=== PATIENT | female | born 1955 | race Caucasian/White ===

== ENCOUNTER 2017-08-07 07:10 | Emergency (ER) | payer OTHER ==
[~2017-08-07] VITALS: Ht 162.6 cm; Wt 56.7 kg
[~2017-08-07 07:10] MED LIST: CELEXA40 MG PO; CYCLOBENZAPRINE10 MG PO; ERYTHROMYCIN3.5 GM OPTH; FLONASE SENSIM9.9 ML NAS; INDOMETHACIN50 MG PO; KEFLEX500 MG PO; KLONOPIN0.5 MG PO; KLONOPIN1 MG PO; LAMICTAL100 MG PO; PREDNISONE20 MG PO; ULTRAM50 MG PO; VISTARIL25 MG PO
== END 2017-08-07 09:32 | disposition home or self-care (01) ==
LOC: ED 07:10
DX: F41.9 Anxiety disorder, unspecified (principal); F32.9 Major depressive disorder, single episode, unspecified; Z87.891 Personal history of nicotine dependence; Z79.899 Other long term (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
CPT/HCPCS: 80053; 85025; 99283; G0480

== ENCOUNTER 2017-09-02 07:43 | Emergency (ER) | payer OTHER ==
[~2017-09-02] VITALS: Ht 162.6 cm; Wt 56.7 kg
[2017-09-02] MEDS ORDERED: ACYCLOVIR200 MG PO (07:53)
== END 2017-09-02 08:18 | disposition home or self-care (01) ==
LOC: ED 07:43
DX: R05 Cough (principal)

== ENCOUNTER 2018-09-15 20:24 | Emergency (ER) | payer OTHER ==
[~2018-09-15] VITALS: Ht 162.6 cm; Wt 56.7 kg
[~2018-09-15 20:24] MED LIST changes: +ACYCLOVIR200 MG PO
[2018-09-15] MEDS ORDERED: OMEPRAZOLE20 M1 (20:41)
[2018-09-15] MEDS ORDERED: TRAMADOL HCL50 MG PO (22:16)
== END 2018-09-15 22:30 | disposition home or self-care (01) ==
LOC: ED 20:24
DX: S86.102A Unspecified injury of other muscle(s) and tendon(s) of posterior muscle group at lower leg level, left leg, initial encounter (principal); F32.9 Major depressive disorder, single episode, unspecified; F41.9 Anxiety disorder, unspecified; F17.200 Nicotine dependence, unspecified, uncomplicated; Z79.899 Other long term (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; X58.XXXA Exposure to other specified factors, initial encounter
CPT/HCPCS: 73590; 80053; 85025; 85610; 85730; 99283-25

== ENCOUNTER 2019-02-14 12:00 | Emergency (ER) | payer OTHER ==
[~2019-02-14] VITALS: Ht 162.6 cm; Wt 52.2 kg
[~2019-02-14 12:00] MED LIST changes: +OMEPRAZOLE20 M1; +TRAMADOL HCL50 MG PO
[2019-02-14] MEDS ORDERED: CELEXA10 MG PO (12:08)
[2019-02-14] MEDS ORDERED: CYCLOBENZAPRINE10 MG PO (13:08)
== END 2019-02-14 14:25 | disposition home or self-care (01) ==
LOC: ED 12:00
DX: R25.2 Cramp and spasm (principal); F17.200 Nicotine dependence, unspecified, uncomplicated; F32.9 Major depressive disorder, single episode, unspecified; F41.9 Anxiety disorder, unspecified; Z79.899 Other long term (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
CPT/HCPCS: 80053; 83735; 85025; 96372; 99283-25; 99406; J1885

== ENCOUNTER 2019-04-11 09:07 | Emergency (ER) | payer OTHER ==
[~2019-04-11] VITALS: Ht 162.6 cm; Wt 52.2 kg
[~2019-04-11 09:07] MED LIST changes: +CELEXA10 MG PO
--- OUTSIDE RECORDS SUMMARY | 2019-04-11 09:10 | XMS ---
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 Date: 02/16/2019 Care Coordination: Mental health services are being provided by [employer].\T\nbsp; Please contact [facility] with mental health concerns.\T\nbsp; [place] \T\nbsp; [place]: [phone]. E.D. VISIT COUNT (12 MO.) 3 [facility] Hodgson TOTAL 3 NOTE: Visits indicate total known visits. ED/UCC VISIT TRACKING (12 MO.) 04/11/2019 09:08 [facility] [place] TYPE: Emergency COMPLAINT: - RIGHT LEG PAIN/NON INJURY 02/14/2019 12:00 [facility] [place] TYPE: Emergency COMPLAINT: - RIGHT LEG PAIN NON INJURY DIAGNOSES: - Cramp and spasm - Nicotine dependence, unspecified, uncomplicated - Muscle spasm of calf - Other residential (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 - Anxiety disorder, unspecified - Major depressive disorder, single episode, unspecified 09/15/2018 20:24 [facility] [place] TYPE: Emergency COMPLAINT: - L LEG SWELLING DIAGNOSES: - Unspecified injury of other muscle(s) and tendon(s) of posterior muscle group at lower leg level, left leg, initial encounter - Pain in left lower leg - Nicotine dependence, unspecified, uncomplicated - Anxiety disorder, unspecified - Other residential (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 - Exposure to other specified factors, initial encounter - Major depressive disorder, single episode, unspecified INPATIENT VISIT TRACKING (12 MO.) No inpatient visits to display in this time frame [email or web address]
[2019-04-11] MEDS ORDERED: GABAPENTIN300 MG PO (09:24)
[2019-04-11] MEDS ORDERED: BUSPIRONE HCL5 MG PO (09:25)
[2019-04-11] MEDS ORDERED: NAPROXEN250 MG PO (09:26)
== END 2019-04-11 10:20 | disposition home or self-care (01) ==
LOC: ED 09:07
DX: G89.29 Other chronic pain (principal); M54.5 Low back pain; M25.551 Pain in right hip; M79.651 Pain in right thigh; F32.9 Major depressive disorder, single episode, unspecified; F41.9 Anxiety disorder, unspecified; F17.200 Nicotine dependence, unspecified, uncomplicated; Z79.899 Other long term (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
CPT/HCPCS: 96372; 99283; 99406; J1100; J1885

== ENCOUNTER 2019-06-19 23:33 | Emergency (ER) | payer OTHER ==
[~2019-06-19] VITALS: Ht 162.6 cm; Wt 52.2 kg
[~2019-06-19 23:33] MED LIST changes: +BUSPIRONE HCL5 MG PO; +GABAPENTIN300 MG PO; +NAPROXEN250 MG PO
--- OUTSIDE RECORDS SUMMARY | 2019-06-19 23:36 | XMS ---
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 Guidelines - PDMP CARE PROVIDERS ROMIE LOERA MD Psychiatry \T\ Neurology: Psychiatry 04/12/2019-Current PHONE: Unknown [facility] Primary Care Current PRIMARY CARE CNTR PHONE: Unknown Guidelines [facility]: [facility] Guidelines Date: 02/16/2019 Care Coordination: Mental health services are being provided by [employer].\T\nbsp; Please contact [employer] with mental health concerns.\T\nbsp; Nancy/Hardy [place]: \T\nbsp; [place]: [phone]. E.D. VISIT COUNT (12 MO.) 4 ADALBERTO Hodgson TOTAL 4 NOTE: Visits indicate total known visits. ED/UCC VISIT TRACKING (12 MO.) 06/19/2019 23:33 [facility] [place] TYPE: Emergency COMPLAINT: - BACK PAIN 04/11/2019 09:08 [facility] [place] TYPE: Emergency COMPLAINT: - RIGHT LEG PAIN/NON INJURY DIAGNOSES: - Pain in right thigh - Anxiety disorder, unspecified - Nicotine dependence, unspecified, uncomplicated - Other optic fibre drawer (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 - Other chronic pain - Pain in right hip - Major depressive disorder, single episode, unspecified - Low back pain 02/14/2019 12:00 [facility] [place] TYPE: Emergency COMPLAINT: - RIGHT LEG PAIN NON INJURY DIAGNOSES: - Cramp and spasm - Nicotine dependence, unspecified, uncomplicated - Muscle spasm of calf - Other optic fibre drawer (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 - Anxiety disorder, unspecified - Major depressive disorder, single episode, unspecified 09/15/2018 20:24 [facility] [place] TYPE: Emergency COMPLAINT: - L LEG SWELLING DIAGNOSES: - Unsp inj musc/tend post grp at low leg level, left leg, init - Pain in left lower leg - Nicotine dependence, unspecified, uncomplicated - Anxiety disorder, unspecified - Other snf (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 - Exposure to other specified factors, initial encounter - Major depressive disorder, single episode, unspecified INPATIENT VISIT TRACKING (12 MO.) No inpatient visits to display in this time frame [email or web address]
[2019-06-19] MEDS ORDERED: BUPRENORPHINE HC2 MG SL (23:47)
[2019-06-20] MEDS ORDERED: CYCLOBENZAPRINE10 MG PO (01:38)
== END 2019-06-20 01:51 | disposition home or self-care (01) ==
LOC: ED 23:33
DX: M54.5 Low back pain (principal); F32.9 Major depressive disorder, single episode, unspecified; F17.200 Nicotine dependence, unspecified, uncomplicated; Z79.899 Other long term (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
CPT/HCPCS: 96372; 99283; J1885

== ENCOUNTER 2019-08-07 15:10 | Emergency (ER) | payer OTHER ==
[~2019-08-07] VITALS: Ht 162.6 cm; Wt 47.6 kg
--- OUTSIDE RECORDS SUMMARY | ~2019-08-07 | XMS | Encounter Summary ---
Demographics + + + | Address | [address] | | | [place] [address] | + + + | Home Phone | | + + + | Preferred Language | Unknown | + + + | Marital Status | Single | + + + | Congregational Affiliation | Unknown | + + + | Race | Unknown | + + + | Ethnic Group | Unknown | + + + Author + + + | Author | [facility] | | | and Swapnilana | + + + | Organization | [facility] | | | and Swapnilana | + + + | Address | Unknown | + + + | Phone | Unavailable | + + + Support + + + + + | Name | Relationship | Address | Phone | + + + + + | Octavio Archer | ECON | [place] | | | | | [address] | | + + + + + Care Team Providers + +------+ + | Care Lead Scientist Name | Role | Phone | + +------+ + | Adan Welch NP | PCP | | + +------+ + Reason for Visit +---------+ + | Reason | Comments | +---------+ + | No Show | | +---------+ + Encounter Details +--------+ + + + + | Date | Type | Department | Care Team | Description | +--------+ + + + + | 05/26/ | Telephone | [facility] | Manuel Vizcarra, | No Show | | 2019 | | PHYSIATRY [address] | PA-C [address] | | | | | [place], [address] [place] | | | | | [place] [address] | [place] [address] | | | | | [phone] | [phone] | | | | | | | | +--------+ + + + + Social History + + + +--------+------+ | Tobacco Use | Types | Packs/Day | Years | Date | | | | | Used | | + + + +--------+------+ | Current Every Day | E-Cigarettes | | | | | Smoker | | | | | + + + +--------+------+ + +---+---+---+ | Smokeless Tobacco: | | | | | Never Used | | | | + +---+---+---+ + + +---------+ + | Alcohol Use | Drinks/Week | oz/Week | Comments | + + +---------+ + | Not Currently | | | | + + +---------+ + + + + | Sex Assigned at | Date Recorded | | | | + + + | Not on file | | + + + + + + + | Job Start Date | Occupation | Industry | + + + + | Not on file | Not on file | Not on file | + + + + + + + + | Travel History | Travel Start | Travel End | + + + + + + | No recent travel history available. | + + documented as of this encounter Plan of Treatment +--------+---------+ + + + | Date | Type | Specialty | Care Team | Description | +--------+---------+ + + + | 08/08/ | Office | Neurosurgery | Jaime Jerez | | | 2019 | Visit | | MD Mamta [address] | | | | | | [address] | | | | | | [place] [address] | | | | | | [phone] | | | | | | | | +--------+---------+ + + + | 12/06/ | Office | Neurology | Kashmir Matthew MD | | | 2019 | Visit | | [address] | | | | | | [place] | | | | | | [phone] | | | | | | | | +--------+---------+ + + + documented as of this encounter Visit Diagnoses Not on filedocumented in this encounter"
--- OUTSIDE RECORDS SUMMARY | ~2019-08-07 | XMS | Encounter Summary ---
Demographics + + + | Address | [address] | | | [place] [address] | + + + | Home Phone | | + + + | Preferred Language | Unknown | + + + | Marital Status | Single | + + + | Rastafarian Affiliation | Unknown | + + + | Race | White | + + + | Ethnic Group | Other Race | + + + Author + + + | Author | [facility] | + + + | Organization | [facility] | + + + | Address | Unknown | + + + | Phone | Unavailable | + + + Care Team Providers + +------+ + | Care Blade Filer Name | Role | Phone | + +------+ + | Adan Welch NP | PCP | | + +------+ + Encounter Details +--------+ + + + + | Date | Type | Department | Care Team | Description | +--------+ + + + + | 01/06/ | Document-Sc | Dermatology at | [facility] | | | 2017 | anned | Jerri Smith | MD Naay | | | | | Clinic [address] | | | | | | [address] [place] | | | | | | [address] | | | | | | [phone] | | | +--------+ + + + + Social History + +-------+ +--------+------+ | Tobacco Use | Types | Packs/Day | Years | Date | | | | | Used | | + +-------+ +--------+------+ | Never Assessed | | | | | + +-------+ +--------+------+ + + + | Sex Assigned at [...] as of this encounter Plan of Treatment Not on filedocumented as of this encounter Visit Diagnoses Not on filedocumented in this encounter"
--- OUTSIDE RECORDS SUMMARY | ~2019-08-07 | XMS | Encounter Summary ---
Demographics + + + | Address | [address] | | | [place] [address] | + + + | Home Phone | | + + + | Preferred Language | Unknown | + + + | Marital Status | Single | + + + | Methodist Affiliation | Unknown | + + + | Race | Unknown | + + + | Ethnic Group | Unknown | + + + Author + + + | Author | [facility] | | | and Swapnilana | + + + | Organization | [facility] | | | and Swapnilana | + + + | Address | Unknown | + + + | Phone | Unavailable | + + + Support + + + + + | Name | Relationship | Address | Phone | + + + + + | Octavio Archer | ECON | [place] | | | | | [address] | | + + + + + Care Team Providers + +------+ + | Care Conduit Worker Name | Role | Phone | + +------+ + PCP | Unavailable | + +------+ + Encounter Details +--------+ + + + + | Date | Type | Department | Care Team | Description | +--------+ + + + + | 05/18/ | Hospital | [facility] | Conversion | | | 1996 | Encounter | SYSTEM RADIOLOGY | Transaction, | | | | | CONVERSION [address] | Provider Unknown | | | | | [address] [place], [place] | | | | | | [phone] | (Fax) | | | | | | | [...] | | | | | [address] [place] | | | | | | [place] [address] | | | | | | [phone] | | | | | | | | +--------+---------+ + + + | 12/06/ | Office | Neurology | Kashmir Matthew MD | | | 2020 | Visit | | [address] | | | | | | [place] | | | | | | [address] | | | | | | | | +--------+---------+ + + + documented as of this encounter Visit Diagnoses Not on filedocumented in this encounter"
--- OUTSIDE RECORDS SUMMARY | ~2019-08-07 | XMS | Clinical Summary ---
Demographics + + + | Address | [address] | | | [place] [address] | + + + | Home Phone | | + + + | Preferred Language | Unknown | + + + | Marital Status | Single | + + + | Christian Affiliation | Unknown | + + + | Race | Unknown | + + + | Ethnic Group | Unknown | + + + Author + + + | Author | [facility] | | | and Swapnilana | + + + | Organization | [facility] | | | and Swapnilana | + + + | Address | Unknown | + + + | Phone | Unavailable | + + + Support + + + + + | Name | Relationship | Address | Phone | + + + + + | Octavio Archer | ECON | [place] | | | | | [address] | | + + + + + Care Team Providers + +------+ + | Care Cooling Room Attendant Name | Role | Phone | + +------+ + | Divya Eubanks | PCP | | + +------+ + Allergies No Known Allergies Medications + + + +---------+------+------+-------+ | Medication | Sig | Dispensed | Refills | Star | End | Statu | | | | | | t | Date | s | | | | | | Date | | | + + + +---------+------+------+-------+ | omeprazole | Take 20 mg by mouth | | 0 | 06/1 | | Activ | | (PRILOSEC) 20 mg | Daily. | | | 3/20 | | e | | TBEC | | | | 11 | | | + + + +---------+------+------+-------+ | acyclovir | Take 2 capsules by | | 0 | 06/1 | | Activ | | (ZOVIRAX) 200 mg | mouth tid for | | | 3/20 | | e | | capsule | flareups of herpes | | | 11 | | | + + + +---------+------+------+-------+ | lamoTRIgine | Take 600 mg by mouth | | 0 | 06/1 | | Activ | | (LAMICTAL) 150 MG | nightly. | | | 3/20 | | e | | tablet | | | | 11 | | | + + + +---------+------+------+-------+ | fluticasone | 1 spray by Nasal | | 0 | | | Activ | | (FLONASE) 50 | route Daily. | | | | | e | | mcg/nasal spray | | | | | | | + + + +---------+------+------+-------+ | citalopram | Take 40 mg by mouth | | 0 | | | Activ | | (CELEXA) 40 mg | Daily. | | | | | e | | tablet | | | | | | | + + + +---------+------+------+-------+ | cyclobenzaprine | Take 10 mg by mouth | | 0 | | | Activ | | (FLEXERIL) 10 mg | Twice daily as | | | | | e | | tablet | needed for Muscle | | | | | | | | spasms. | | | | | | + + + +---------+------+------+-------+ | gabapentin | Take 300 mg by mouth | | 0 | | | Activ | | (NEURONTIN) 300 mg | 3 times daily. | | | | | e | | capsule | | | | | | | + + + +---------+------+------+-------+ | buprenorphine | Place 8 mg under the | | 3 | 11/1 | | Activ | | (SUBUTEX) 8 mg SUBL | tongue Daily. | | | 3/20 | | e | | | | | | 19 | | | + + + +---------+------+------+-------+ | naproxen | Take 250 mg by mouth | | 0 | | | Activ | | (NAPROSYN) 250 mg | 2 times daily. | | | | | e | | tablet | | | | | | | + + + +---------+------+------+-------+ | methylPREDNISolone | Take 4 mg by mouth | | 0 | | | Activ | | (MEDROLRITO,) 4 mg | (see instruction). | | | | | e | | tablet | Follow package | | | | | | | | directions. | | | | | | + + + +---------+------+------+-------+ Active Problems + + + | Problem | Noted Date | + + + | Alcohol abuse, in remission | 03/03/2011 | + + + Encounters +--------+ + + + + | Date | Type | Specialty | Care Team | Description | +--------+ + + + + | 08/05/ | Imaging | Radiology | Provider, | | | 2018 | Exam | | MD Emilio | | +--------+ + + + + | 08/05/ | Abstract | Neurosurgery | Jaime Jerez | | | 2018 | | | MD Mamta | | +--------+ + + + + | 07/06/ | Telephone | Physical Medicine | Luis M Back, | Results | | 2018 | | and Rehabilitation | | | +--------+ + + + + | 05/26/ | Telephone | Physical Medicine | Manuel Vizcarra, | No Show | | 2019 | | and Rehabilitation | PA-C | | +--------+ + + + + from Last 3 Months Immunizations + + + + | Name | Administration Dates | Next Due | + + + + | INFLUENZA TRIV | 06/15/2001 | | | W/PRES(PED/ADOL/ADUL | | | | T),MULTIDOSE | | | + + + + | MMR, 2 DOSE | 08/04/1994 | | | (PED/ADULT) | | | + + + + | TDAP, (ADOL/ADULT) | 06/27/2016 | | + + + + Family History + + + + + | Medical History | Relation | Name | Comments | + + + + + | Alcohol abuse | Father | | | + + + + + | Cancer | Father | | | + + + + + | Drug abuse | Father | | | + + + + + | No known problems | Maternal | | | | | Grandfath | | | | | er | | | + + + + + | No known problems | Maternal | | | | | Grandmoth | | | | | er | | | + + + + + | Alcohol abuse | Mother | Radha | | | | | | | | | | Lissy | | | | | l | | + + + + + | COPD | Mother | Radha | | | | | | | | | | Lissy | | | | | l | | + + + + + | Drug abuse | Mother | Radha | | | | | | | | | | Lissy | | | | | l | | + + + + + | Mental illness | Mother | Radha | | | | | | | | | | Lissy | | | | | l | | + + + + + | No known problems | Paternal | | | | | Grandfath | | | | | er | | | + + + + + | No known problems | Paternal | | | | | Grandmoth | | | | | er | | | + + + + + | Alcohol abuse | Sister | | | + + + + + | Drug abuse | Sister | | | + + + + + + + + + + | Relation | Name | Status | Comments | + + + + + | Father | | | | + + + + + | Maternal Grandfather | | | | + + + + + | Maternal Grandmother | | | | + + + + + | Mother | Radha | | | | | [place] | | | + + + + + | Paternal Grandfather | | | | + + + + + | Paternal Grandmother | | | | + + + + + | Sister | | | | + + + + + Social History + [...] | | | + +---+---+---+ + + | Tobacco Cessation: Ready to Quit: No; Counseling Given: Yes | + + + + +---------+ + | Alcohol Use | Drinks/Week | oz/Week | Comments | + + +---------+ + | Yes | | | Ocassionally | + + +---------+ + + + [...] recent travel history available. | + + Last Filed Vital Signs + + + + + | Vital Sign | Reading | Time Taken | Comments | + + + + + | Blood Pressure | 134/70 | 02/24/2019 9:07 AM | | | | | PDT | | + + + + + | Pulse | 73 | 02/24/2019 9:07 AM | | | | | PDT | | + + + + + | Temperature | - | - | | + + + + + | Respiratory Rate | 18 | 02/24/2019 9:07 AM | | | | | PDT | | + + + + + | Oxygen Saturation | - | - | | + + + + + | Inhaled Oxygen | - | - | | | Concentration | | | | + + + + + | Weight | 49.9 kg (110 lb) | 02/24/2019 9:07 AM | | | | | PDT | | + + + + + | Height | 162.6 cm (5' 4") | 02/24/2019 9:07 AM | | | | | PDT | | + + + + + | Body Mass Index | 18.88 | 02/24/2019 9:07 AM | | | | | PDT | | + + + + + Plan of Treatment +--------+---------+ + + + | Date | Type | Specialty | Care Team | Description | +--------+---------+ + + + | 08/08/ | Office | Neurosurgery | Jaime Jerez | | | 2018 | Visit | | MD Mamta [address] | | | | | | [address] [place] | | | | | | [place] [address] | | | | | | [phone] | | | | | | | | +--------+---------+ + + + | 12/06/ | Office | Neurology | Kashmir Matthew MD | | | 2019 | Visit | | [address] | | | | | | [place] | | | | | | [address] | | | | | | | | +--------+---------+ + + + + + + + + | Health Maintenance | Due Date | Last Done | Comments | + + + + + | Hepatitis C | | | | | Screening | 7 | | | + + + + + | Vaccine: | | | | | Pneumococcal 19-64 | 3 | | | | (1 of 1 - PPSV23) | | | | + + + + + | Cervical Cancer | | | | | Screening (Pap) | 7 | | | + + + + + | Colorectal Cancer | | | | | Screening | 7 | | | | (Colonoscopy) | | | | + + + + + | Vaccine: Zoster (1 | | | | | of 2) | 7 | | | + + + + + | Breast Cancer | | | | | Screening | 2 | | | + + + + + | Vaccine: Influenza | | 06/15/2001 | | | (#1) | 9 | | | + + + + + | Vaccine: | | 06/27/2016 | | | Dtap/Tdap/Td (2 - | 6 | | | | Td) | | | | + + + + + Procedures + +--------+ + + + | Procedure Name | Priori | Date/Time | Associated Diagnosis | Comments | | | ty | | | | + +--------+ + + + | MRI LUMBAR SPINE WO | Routin | 08/01/2019 | | Results for this | | CONTRAST | e | 12:00 AM | | procedure are in the | | | | PST | | results section. | + +--------+ + + + from Last 3 Months Results MRI Lumbar Spine wo Contrast (08/01/2019 12:00 AM PST) + + | Specimen | + + | | + + + + + | Narrative | Performed At | + + + | External films for comparison only | [facility] | | | | | No results will be in the chart. | | + + + + +---------+ + + | Performing | Address | City/State/Zipcode | Phone Number | | Organization | | | | + +---------+ + + | [facility] | | | | + +---------+ + + from Last 3 Months Insurance + +--------+ +--------+ +---------+--------+ | Payer | Benefi | Subscriber | Effect | Phone | Address | Type | | | t Plan | ID | osmel | | | | | | / | | Dates | | | | | | Group | | | | | | + +--------+ +--------+ +---------+--------+ | [employer] | [employer] | [id number] | | [id number] | | Medica | | MEDICAID HMO | HEALTH | | [phone] | 1 | | id | | | MDCD | | esent | | | | | | [place]MO [place] | | | | | | + +--------+ +--------+ +---------+--------+ + +--------+ +--------+ + + | Guarantor Name | Accoun | Relation to | Date | Phone | Billing Address | | | t Type | Patient | of | | | | | | | | | | + +--------+ +--------+ + + | Josey Segundo | Person | Self [birth year] | [address] | | | al/Fam | | 1955 | [phone] | [place] [id number] | | | bakari | | | [address] (Home) | | + +--------+ +--------+ + + Advance Directives + + + + + | Type | Date Recorded | Patient | Explanation | | | | 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
--- OUTSIDE RECORDS SUMMARY | ~2019-08-07 | XMS | Encounter Summary ---
Demographics + + + | Address | [address] | | | [place] [address] | + + + | Home Phone | | + + + | Preferred Language | Unknown | + + + | Marital Status | Single | + + + | Hoahaoism Affiliation | Unknown | + + + | Race | Unknown | + + + | Ethnic Group | Unknown | + + + Author + + + | Author | [facility] | | | and Swapnilana | + + + | Organization | [facility] | | | and Swapnilana | + + + | Address | Unknown | + + + | Phone | Unavailable | + + + Support + + + + + | Name | Relationship | Address | Phone | + + + + + | Octavio Archer | ECON | [place] | | | | | [address] | | + + + + + Care Team Providers + +------+ + | Care Graphite Pan Drier Tender Name | Role | Phone | + [...] | pain | [address] | | | | | Procedures | [address] | [address] [place] | | | | | MRI Hip | [place], | [place], [place] | | | | | Right | [place] [address] | [address] | | | | | Arthrogram w | Phone: | Phone: | | | | | Contrast | [phone] | [phone] | | | | | | Fax: | Fax: | | | | | | [phone] | [phone] | +--------+--------+ + + + + Reason for Visit Diagnostic/Screening (Routine) +--------+--------+ + + + + [...] | pain | [address] | | | | | Procedures | [address] | [address] [place] | | | | | MRI Hip | [place], | [place], [place] | | | | | Right | [place] [address] | [address] | | | | | Arthrogram w | Phone: | Phone: | | | | | Contrast | [phone] | | | | | | | Fax: | Fax: | | | | | | [phone] | [phone] | +--------+--------+ + + + + Encounter Details +--------+ + + + + | Date | Type | Department | Care Team | Description | +--------+ + + + + | 03/23/ | Hospital | [facility] | Luis M Back, | Right hip pain | | 2019 | Encounter | MED CTR MRI [address] | MD [address] | | | | | [place], | [place], [place] | | | | | [place] [address] | [address] | | | | | [phone] | | | +--------+ + + + [...] + + documented as of this encounter Medications at Time of Discharge + + + +---------+ + + | Medication | Sig | Dispensed | Refills | Start | End Date | | | | | | Date | | + + + +---------+ + + | acyclovir | Take 2 capsules by | | 0 | 01/28/20 | | | (ZOVIRAX) 200 mg | mouth tid for | | | 11 | | | capsule | flareups of herpes | | | | | + + + +---------+ + + | citalopram | Take 40 mg by mouth | | 0 | | | | (CELEXA) 40 mg | Daily. | | | | | | tablet | | | | | | + + + +---------+ + + | cyclobenzaprine | Take 10 mg by mouth | | 0 | | | | (FLEXERIL) 10 mg | Twice daily as | | | | | | tablet | needed for Muscle | | | | | | | spasms. | | | | | + + + +---------+ + + | fluticasone | 1 spray by Nasal | | 0 | | | | (FLONASE) 50 | route Daily. | | | | | | mcg/nasal spray | | | | | | + + + +---------+ + + | gabapentin | Take 300 mg by mouth | | 0 | | | | (NEURONTIN) 300 mg | 3 times daily. | | | | | | capsule | | | | | | + + + +---------+ + + | lamoTRIgine | Take 600 mg by mouth | | 0 | 01/28/20 | | | (LAMICTAL) 150 MG | nightly. | | | 11 | | | tablet | | | | | | + + + +---------+ + + | omeprazole | Take 20 mg by mouth | | 0 | 01/28/20 | | | (PRILOSEC) 20 mg | Daily. | | | 11 | | | TBEC | | | | | | + + + +---------+ + + documented as of this encounter Plan of Treatment +--------+---------+ + + + | Date | Type | Specialty | Care Team | Description | +--------+---------+ + + + | 08/08/ | Office | Neurosurgery | Jaime Jerez | | | 2018 | Visit | | MD Mamta [address] | | | | | | [address] | | | | | | [place] [address] | | | | | | [phone] | | | | | | | | +--------+---------+ + + + | 12/06/ | Office | Neurology | Kashmir Matthew MD | | | 2019 | Visit | | [address], [place] | | | | | | [place] | | | | | | [address] | | | | | | | | +--------+---------+ + + + documented as of this encounter Procedures + +--------+ + + + | Procedure Name | Priori | Date/Time | Associated Diagnosis | Comments | | | ty | | | | + +--------+ + + + | MRI HIP RIGHT | Routin | 03/23/2019 | Right hip pain | Results for this | | ARTHROGRAM W | e | 9:01 AM | | procedure are in the | | CONTRAST | | PDT | | results section. | + +--------+ + + + documented in this encounter Results MRI Hip Right Arthrogram [...] | + + | Right hip pain Pain in joint, pelvic region and thigh | + + documented in this encounter"
--- OUTSIDE RECORDS SUMMARY | ~2019-08-07 | XMS | Encounter Summary ---
Demographics + + + | Address | [address] | | | [place] [address] | + + + | Home Phone | | + + + | Preferred Language | Unknown | + + + | Marital Status | Single | + + + | Sabianist Affiliation | Unknown | + + + | Race | Unknown | + + + | Ethnic Group | Unknown | + + + Author + + + | Author | [facility] | | | and Swapnilana | + + + | Organization | [facility] | | | and Swapnilana | + + + | Address | Unknown | + + + | Phone | Unavailable | + + + Support + + + + + | Name | Relationship | Address | Phone | + + + + + | Octavio Archer | ECON | [place] | | | | | [address] | | + + + + + Care Team Providers + +------+ + | Care Rubber Down Name | Role | Phone | + +------+ + | Divya Eubanks | PCP | | + +------+ + Encounter Details +--------+ + + + + | Date | Type | Department | Care Team | Description | +--------+ + + + + | 08/05/ | Abstract | [facility] [place] | Jaime Jerez | | | 2019 | | NEUROSURGERY [address] | MD [address] | | | | | [address] | [address] | | | | | [place] | [place] [address] | | | | | [address] | [phone] | | | | | [phone] | | | +--------+ + + + [...] [address] | | | | | | [place] [address] | | | | | | [phone] | | | | | | | | +--------+---------+ + + + | 12/06/ | Office | Neurology | Kashmir Matthew MD | | | 2019 | Visit | | [address] | | | | | | [place] | | | | | | [address] | | | | | | | | +--------+---------+ + + + documented as of this encounter Visit Diagnoses Not on filedocumented in this encounter"
--- OUTSIDE RECORDS SUMMARY | ~2019-08-07 | XMS | Encounter Summary ---
Demographics + + + | Address | [address] | | | [place] [address] | + + + | Home Phone | | + + + | Preferred Language | Unknown | + + + | Marital Status | Single | + + + | Advent Affiliation | Unknown | + + + | Race | White | + + + | Ethnic Group | Other Race | + + + Author + + + | Author | [facility] | + + + | Organization | [facility] | + + + | Address | Unknown | + + + | Phone | Unavailable | + + + Care Team Providers + +------+ + | Care Media Marketing Manager Name | Role | Phone | + +------+ + | Adan Welch NP | PCP | | + +------+ + Reason for Visit + + + | Reason | Comments | + + + | Letter Encounter To | | | Patient | | + + + Encounter Details +--------+ + + + + | Date | Type | Department | Care Team | Description | +--------+ + + + + | 02/03/ | Telephone | Dermatology at | [facility] | Letter Encounter To | | 2016 | | Jerri Smith | MD Naya | Patient | | | | Clinic [address] | | | | | St [place] | | | | | | [address] | | | | | | [phone] | | | +--------+ + + + [...]
--- OUTSIDE RECORDS SUMMARY | ~2019-08-07 | XMS | Encounter Summary ---
Demographics + + + | Address | [address] | | | [place] [address] | + + + | Home Phone | | + + + | Preferred Language | Unknown | + + + | Marital Status | Single | + + + | Adventist Affiliation | Unknown | + + + | Race | Unknown | + + + | Ethnic Group | Unknown | + + + Author + + + | Author | [facility] | | | and Swapnilana | + + + | Organization | [facility] | | | and Swapnilana | + + + | Address | Unknown | + + + | Phone | Unavailable | + + + Support + + + + + | Name | Relationship | Address | Phone | + + + + + | Octavio Archer | ECON | [place] | | | | | [address] | | + + + + + Care Team Providers + +------+ + | Care Binder And Box Builder Name | Role | Phone | + +------+ + PCP | Unavailable | + +------+ + Encounter Details +--------+ + + + + | Date | Type | Department | Care Team | Description | +--------+ + + + + | 07/18/ | Hospital | [facility] | Minh Grossman P, | | | 2006 | Encounter | SYSTEM EMR | DO [address] | | | | | CONVERSION [address] | [place] [address] | | | | | [address] [place], [place] | [phone] | | | | | [address] | | | | | | [phone] | | | +--------+ + + + [...] | | | | | [place] [address] | | | | | | [phone] | | | | | | | | +--------+---------+ + + + | 12/06/ | Office | Neurology | Kashmir Matthew MD | | | 2020 | Visit | | [address] | | | | | | [place] | | | | | | [address] | | | | | | | | +--------+---------+ + + + documented as of this encounter Visit Diagnoses Not on filedocumented in this encounter"
--- OUTSIDE RECORDS SUMMARY | ~2019-08-07 | XMS | Encounter Summary ---
Demographics + + + | Address | [address] | | | [place] [address] | + + + | Home Phone | | + + + | Preferred Language | Unknown | + + + | Marital Status | Single | + + + | Gnosticism Affiliation | Unknown | + + + | Race | Unknown | + + + | Ethnic Group | Unknown | + + + Author + + + | Author | [facility] | | | and Swapnilana | + + + | Organization | [facility] | | | and Swapnilana | + + + | Address | Unknown | + + + | Phone | Unavailable | + + + Support + + + + + | Name | Relationship | Address | Phone | + + + + + | Octavio Archer | ECON | [place] | | | | | [address] | | + + + + + Care Team Providers + +------+ + | Care Evp Chief Exploration Officer Name | Role | Phone | + +------+ + | Divya Eubanks | PCP | | + +------+ + Encounter Details +--------+ + + + + | Date | Type | Department | Care Team | Description | +--------+ + + + + | 08/05/ | Imaging | [facility] | Provider, | | | 2019 | Exam | MED CTR EXTERNAL | MD [address] | | | | | IMAGING | [place] | | | | | [phone] | [place] [address] | | +--------+ + + + + [...] | | | | [address] [facility] | | | | | | [place] [address] | | | | | | [phone] | | | | | | | | +--------+---------+ + + + | 12/06/ | Office | Neurology | Kashmir Matthew MD | | | 2019 | Visit | | [address] | | | | | | [place] | | | | | | [address] | | | | | | | [...] + documented in this encounter Results MRI Lumbar Spine wo Contrast (08/01/2019 [...] + documented in this encounter Visit Diagnoses Not on filedocumented in this encounter"
--- OUTSIDE RECORDS SUMMARY | ~2019-08-07 | XMS | Encounter Summary ---
Demographics + + + | Address | [address] | | | [place] [address] | + + + | Home Phone | | + + + | Preferred Language | Unknown | + + + | Marital Status | Single | + + + | Cheondoism Affiliation | Unknown | + + + | Race | Unknown | + + + | Ethnic Group | Unknown | + + + Author + + + | Author | [facility] | | | and Swapnilana | + + + | Organization | [facility] | | | and Swapnilana | + + + | Address | Unknown | + + + | Phone | Unavailable | + + + Support + + + + + | Name | Relationship | Address | Phone | + + + + + | Octavio Archer | ECON | [place] | | | | | [address] | | + + + + + Care Team Providers + +------+ + | Care Cylinder Handler Name | Role | Phone | + +------+ + PCP | Unavailable | + +------+ + Encounter Details +--------+ + + + + | Date | Type | Department | Care Team | Description | +--------+ + + + + | 05/18/ | Hospital | [facility] | Conversion | | | 1996 | Encounter | SYSTEM RADIOLOGY | Transaction, | | | | | CONVERSION [address] | Provider Unknown | | | | | [address] [place], [place] | | | | | | [address] | (Fax) | | | | | [...] | | | | | [place] [address] | | | | | | [phone] | | | | | | | [...]
--- OUTSIDE RECORDS SUMMARY | ~2019-08-07 | XMS | Encounter Summary ---
Demographics + + + | Address | [address] | | | [place] [address] | + + + | Home Phone [...] + + | Author | [facility] | | | and Swapnilana | + + + | Organization | [facility] | | | and Swapnilana | + + + | Address | Unknown | + + + | Phone | Unavailable | + + + Support + + + + + | Name | Relationship | Address | Phone | + + + + + | Octavio Archer | ECON | [place] | | | | | [address] | | + + + + + Care Team Providers + +------+ + | Care Mechanical Press Operator Name | Role | Phone | + +------+ + | Adan Welch NP | PCP | | + +------+ + Encounter Details +--------+ + + + + | Date | Type | Department | Care Team | Description | +--------+ + + + + | 11/10/ | Imaging | [facility] | Provider, | | | 2019 | Exam | MED CTR EXTERNAL | [address] | | | | | IMAGING | [address] | | | | | [phone] | [place] [address] | | +--------+ + + + + [...] | | | | | [address] | | | | | | [place] [address] | | | | | | [phone] | | | | | | | | +--------+---------+ + + + | 12/06/ | Office | Neurology | Kashmir Matthew MD | | | 2019 | Visit | | [address] | | | | | | [place] | | | | | | [address] | | | | | | | | +--------+---------+ + + + documented as of this encounter Procedures + +--------+ + + + | Procedure Name | Priori | Date/Time | Associated Diagnosis | Comments | | | ty | | | | + +--------+ + + + | XR LUMBAR SPINE 4 + | Routin | 10/04/2018 | | Results for this | | VW | e | 1:20 PM | | procedure are in the | | | | PST | | results section. | + +--------+ + + + documented in this encounter Results XR Lumbar Spine 4 + Vw (10/04/2018 1:20 PM PST) + + | Specimen | + [...]
--- OUTSIDE RECORDS SUMMARY | ~2019-08-07 | XMS | Encounter Summary ---
Demographics + + + | Address | [address] | | | [place] [address] | + + + | Home Phone | | + + + | Preferred Language | Unknown | + + + | Marital Status | Single | + + + | Church Affiliation | Unknown | + + + | Race | Unknown | + + + | Ethnic Group | Unknown | + + + Author + + + | Author | [facility] | | | and Swapnilana | + + + | Organization | [facility] | | | and Swapnilana | + + + | Address | Unknown | + + + | Phone | Unavailable | + + + Support + + + + + | Name | Relationship | Address | Phone | + + + + + | Octavio Archer | ECON | [place] | | | | | [address] | | + + + + + Care Team Providers + +------+ + | Care Spare Fixer Name | Role | Phone | + +------+ + PCP | Unavailable | + +------+ + Encounter Details +--------+ + + + + | Date | Type | Department | Care Team | Description | +--------+ + + + + | 07/16/ | Hospital | [facility] | Minh Grossman P, | | | 2006 | Encounter | SYSTEM EMR | DO [address] | | | | | CONVERSION [address] | [place] [address] | | | | | [address] [place], [place] | [phone] | | | | | [address] | | | | | | [phone] | | | +--------+ + + + [...] | | | | | [place] [address] | | | | | | [phone] | | | | | | | | +--------+---------+ + + + | 12/06/ | Office | Neurology | Kashmir Matthew MD | | | 2020 | Visit | | [address] | | | | | | [place] | | | | | | [address] | | | | | | | | +--------+---------+ + + + documented as of this encounter Visit Diagnoses Not on filedocumented in this encounter"
--- OUTSIDE RECORDS SUMMARY | ~2019-08-07 | XMS | Encounter Summary ---
Demographics + + + | Address | [address] | | | [place] [address] | + + + | Home Phone | | + + + | Preferred Language | Unknown | + + + | Marital Status | Single | + + + | Taoism Affiliation | Unknown | + + + | Race | Unknown | + + + | Ethnic Group | Unknown | + + + Author + + + | Author | [facility] | | | and Swapnilana | + + + | Organization | [facility] | | | and Swapnilana | + + + | Address | Unknown | + + + | Phone | Unavailable | + + + Support + + + + + | Name | Relationship | Address | Phone | + + + + + | Octavio Archer | ECON | [place] | | | | | [address] | | + + + + + Care Team Providers + +------+ + | Care Brilliandeer Lopper Name | Role | Phone | + +------+ + | Adan Welch NP | PCP | | + +------+ + Reason for Visit +--------+ + | Reason | Comments | +--------+ + | Letter | | +--------+ + Encounter Details +--------+ + + + + | Date | Type | Department | Care Team | Description | +--------+ + + + + | 05/02/ | Telephone | [facility] [place] | Luis M Back, | Letter | | 2019 | | PHYSIATRY [address] | MD [address] | | | | | [place], | [place], [place] | | | | | [place] [address] | [address] | | | | | [phone] | | | +--------+ + + + [...] | | | | | [place] [address] | | | | | | [phone] | | | | | | | [...]
--- OUTSIDE RECORDS SUMMARY | ~2019-08-07 | XMS | Encounter Summary ---
Demographics + + + | Address | [address] | | | [place] [address] | + + + | Home Phone | | + + + | Preferred Language | Unknown | + + + | Marital Status | Single | + + + | Advent Affiliation | Unknown | + + + | Race | Unknown | + + + | Ethnic Group | Unknown | + + + Author + + + | Author | [facility] | | | and Swapnilana | + + + | Organization | [facility] | | | and Swapnilana | + + + | Address | Unknown | + + + | Phone | Unavailable | + + + Support + + + + + | Name | Relationship | Address | Phone | + + + + + | Octavio Archer | ECON | [place] | | | | | [address] | | + + + + + Care Team Providers + +------+ + | Care Heeler Name | Role | Phone | + +------+ + PCP | Unavailable | + +------+ + Encounter Details +--------+ + + + + | Date | Type | Department | Care Team | Description | +--------+ + + + + | 08/28/ | Hospital | [facility] | Minh Coronel MD | | | 1997 - | Encounter | SYSTEM GENERIC IP | | | | | | CONVERSION [place] | | | | 09/01/ | | [address] [place], [place] | | | | 1997 | | [address] | | | | | | [phone] | | | +--------+ + + + [...] | 2019 | Visit | | MD [address] | | | | | | [address] [place] | | | | | | [place] [address] | | | | | | [phone] | | | | | | | | +--------+---------+ + + + | 12/06/ | Office | Neurology | Kashmir Matthew MD | | | 2020 | Visit | | [address] | | | | | | [place] | | | | | | [id number] | | | | | | | | +--------+---------+ + + + documented as of this encounter Visit Diagnoses Not on filedocumented in this encounter"
--- OUTSIDE RECORDS SUMMARY | ~2019-08-07 | XMS | Encounter Summary ---
Demographics + + + | Address | [address] | | | [place] [address] | + + + | Home Phone | | + + + | Preferred Language | Unknown | + + + | Marital Status | Single | + + + | Scientology Affiliation | Unknown | + + + | Race | Unknown | + + + | Ethnic Group | Unknown | + + + Author + + + | Author | [facility] | | | and Swapnilana | + + + | Organization | [facility] | | | and Swapnilana | + + + | Address | Unknown | + + + | Phone | Unavailable | + + + Support + + + + + | Name | Relationship | Address | Phone | + + + + + | Octavio Archer | ECON | [place] | | | | | [address] | | + + + + + Care Team Providers + +------+ + | Care Glass Mould Cleaner Name | Role | Phone | + +------+ + PCP | Unavailable | + +------+ + Encounter Details +--------+ + + + + | Date | Type | Department | Care Team | Description | +--------+ + + + + | 07/18/ | Hospital | [facility] | Minh Grossman P, | | | 2006 | Encounter | SYSTEM EMR | DO [address] | | | | | CONVERSION [address] | [place] [address] | | | | | [address] [place], [place] | [phone] | | | | | [address] | | | | | | [phone] | | | +--------+ + + + [...] | | | | | [place] [address] | | | | | | [phone] | | | | | | | | +--------+---------+ + + + | 12/06/ | Office | Neurology | Kashmir Matthew MD | | | 2020 | Visit | | [address] | | | | | | [place] | | | | | | [address] | | | | | | | | +--------+---------+ + + + documented as of this encounter Visit Diagnoses Not on filedocumented in this encounter"
--- OUTSIDE RECORDS SUMMARY | ~2019-08-07 | XMS | Encounter Summary ---
Demographics + + + | Address | [address] | | | [place] [address] | + + + | Home Phone | | + + + | Preferred Language | Unknown | + + + | Marital Status | Single | + + + | Rastafari Affiliation | Unknown | + + + | Race | Unknown | + + + | Ethnic Group | Unknown | + + + Author + + + | Author | [facility] | | | and Swapnilana | + + + | Organization | [facility] | | | and Swapnilana | + + + | Address | Unknown | + + + | Phone | Unavailable | + + + Support + + + + + | Name | Relationship | Address | Phone | + + + + + | Octavio Archer | ECON | [place] | | | | | [address] | | + + + + + Care Team Providers + +------+ + | Care Cold Meat Chef Name | Role | Phone | + [...] PHYSIATRY [address] | MD [address] | | | | | [place], | [place], [place] | | | | | [place] [address] | [address] | | | | | [phone] | | | +--------+ + + + [...] | | | | | [place] [address] | | | | | | [phone] | | | | | | | | +--------+---------+ + + + | 12/06/ | Office | Neurology | Kashmir Matthew MD | | | 2019 | Visit | | [address] | | | | | | [place] | | | | | | [address] | | | | | | | | +--------+---------+ + + + documented as of this encounter Visit Diagnoses + + | Diagnosis | + + | Tear of right acetabular labrum, initial encounter - Primary | + + documented in this encounter"
--- OUTSIDE RECORDS SUMMARY | ~2019-08-07 | XMS | Encounter Summary ---
Demographics + + + | Address | [address] | | | [place] [address] | + + + | Home Phone | | + + + | Preferred Language | Unknown | + + + | Marital Status | Single | + + + | Rastafarian Affiliation | Unknown | + + + | Race | Unknown | + + + | Ethnic Group | Unknown | + + + Author + + + | Author | [facility] | | | and Swapnilana | + + + | Organization | [facility] | | | and Swapnilana | + + + | Address | Unknown | + + + | Phone | Unavailable | + + + Support + + + + + | Name | Relationship | Address | Phone | + + + + + | Octavio Archer | ECON | [place] | | | | | [address] | | + + + + + Care Team Providers + +------+ + | Care Mat Making Machine Tender Name | Role | Phone | [...] | MED CTR EXTERNAL | [address] | | | | | IMAGING | [address] | | | | | [phone] | [place] [address] | | +--------+ + + + + [...] | | | | [address] [facility] | | | | | | [place] [address] | | | | | | [phone] | | | | | | | | +--------+---------+ + + + | 12/06/ | Office | Neurology | Kashmir Matthew MD | | | 2019 | Visit | | [address] | | | | | | [place] | | | | | | [address] | | | | | | | [...]
--- OUTSIDE RECORDS SUMMARY | ~2019-08-07 | XMS | Encounter Summary ---
Demographics + + + | Address | [address] | | | [place] [address] | + + + | Home Phone | | + + + | Preferred Language | Unknown | + + + | Marital Status | Single | + + + | Advent Affiliation | Unknown | + + + | Race | Unknown | + + + | Ethnic Group | Unknown | + + + Author + + + | Author | [facility] | | | and Swapnilana | + + + | Organization | [facility] | | | and Swapnilana | + + + | Address | Unknown | + + + | Phone | Unavailable | + + + Support + + + + + | Name | Relationship | Address | Phone | + + + + + | Octavio Archer | ECON | [place] | | | | | [address] | | + + + + + Care Team Providers + +------+ + | Care Cotton Ball Bagger Name | Role | Phone | + +------+ + PCP | Unavailable | + +------+ + Encounter Details +--------+ + + + + | Date | Type | Department | Care Team | Description | +--------+ + + + + | 10/09/ | Hospital | [facility] | Elida Ring | | | 2006 | Encounter | SYSTEM RADIOLOGY | MD [address] | | | | | CONVERSION [address] | [address] | | | | | [address] [place], [place] | [place], [place] | | | | | [address] | [address] | | | | | [phone] | [phone] | | | | | | | [...] | | | | | [place] [address] | | | | | | [phone] | | | | | | | | +--------+---------+ + + + | 12/06/ | Office | Neurology | Kashmir Matthew MD | | | 2020 | Visit | | [address] | | | | | | [place] | | | | | | [address] | | | | | | | | +--------+---------+ + + + documented as of this encounter Visit Diagnoses Not on filedocumented in this encounter"
--- OUTSIDE RECORDS SUMMARY | ~2019-08-07 | XMS | Encounter Summary ---
Demographics + + + | Address | [address] | | | [place] [address] | + + + | Home Phone | | + + + | Preferred Language | Unknown | + + + | Marital Status | Single | + + + | Gnosticist Affiliation | Unknown | + + + | Race | Unknown | + + + | Ethnic Group | Unknown | + + + Author + + + | Author | [facility] | | | and Swapnilana | + + + | Organization | [facility] | | | and Swapnilana | + + + | Address | Unknown | + + + | Phone | Unavailable | + + + Support + + + + + | Name | Relationship | Address | Phone | + + + + + | Octavio Archer | ECON | [place] | | | | | [address] | | + + + + + Care Team Providers + +------+ + | Care Child Welfare Manager Name | Role | Phone | [...] | | | | | acetabular | [address] | [address] | | | | | labrum, | [place], | [address] | | | | | initial | [place] [address] | [place] | | | | | encounter | Phone: | [phone] | | | | | Right hip | [phone] | Phone: | | | | | pain Right | Fax: | [phone] | | | | | leg weakness | [phone] | Fax: | | | | | | | [phone] | +--------+ + + + + + Encounter Details +--------+ + + + + | Date | Type | Department | Care Team | Description | +--------+ + + + + | 04/11/ | Orders Only | [facility] [place] | Luis M Back, | Tear of right | | 2018 | | PHYSIATRY [address] | [address] | acetabular labrum, | | | | [place], | [place], [place] | initial encounter | | | | [place] [address] | [address] | (Primary Dx); Right | | | | [phone] | | hip pain; Right leg | [...] | | | | | | [place] [address] | | | | | | [phone] | | | | | | | | +--------+---------+ + + + | 12/06/ | Office | Neurology | Kashmir Matthew MD | | | 2019 | Visit | | [address] | | | | | | [place], [place] | | | | | | [address] | | | | | | | [...]
--- OUTSIDE RECORDS SUMMARY | ~2019-08-07 | XMS | Encounter Summary ---
Demographics + + + | Address | [address] | | | [place] [address] | + + + | Home Phone [...] Author + + + | Author | [facility] | + + + | Organization | [facility] | + + + | Address | Unknown | + + + | Phone | Unavailable | + + + Care Team Providers + +------+ + | Care Lace Burn Out Tender Name | Role | Phone | [...] [place] | | | | | | [address] | | | | | | [phone] | | | +--------+ + + + [...]
--- OUTSIDE RECORDS SUMMARY | ~2019-08-07 | XMS | Encounter Summary ---
Demographics + + + | Address | [address] | | | [place] [address] | + + + | Home Phone | | + + + | Preferred Language | Unknown | + + + | Marital Status | Single | + + + | Rastafari Affiliation | Unknown | + + + | Race | Unknown | + + + | Ethnic Group | Unknown | + + + Author + + + | Author | [facility] | | | and Swapnilana | + + + | Organization | [facility] | | | and Swapnilana | + + + | Address | Unknown | + + + | Phone | Unavailable | + + + Support + + + + + | Name | Relationship | Address | Phone | + + + + + | Octavio Archer | ECON | [place] | | | | | [address] | | + + + + + Care Team Providers + +------+ + | Care Hse Coordinator Name | Role | Phone | + [...] | MED CTR EXTERNAL | MD [address] | | | | | IMAGING | [place] | | | | | [phone] | [place] [address] | | +--------+ + + + + [...] | | | | | [place] [address] | | | | | | [phone] | | | | | | | | +--------+---------+ + + + | 12/06/ | Office | Neurology | Kashmir Matthew MD | | | 2019 | Visit | | [address] | | | | | | [place] | | | | | | [address] | | | | | | | | +--------+---------+ + + + documented as of this encounter Procedures + +--------+ + + + | Procedure Name | Priori | Date/Time | Associated Diagnosis | Comments | | | ty | | | | + +--------+ + + + | XR LUMBAR SPINE | Routin | 05/05/2017 | | Results for this | | COMPLETE INCLUDING | e | 12:00 AM | | procedure are in the | | BENDING 6 + VW | | PDT | | results section. | + +--------+ + + + documented in this encounter Results XR Lumbar Spine Complete With Bending 6+ (05/05/2017 12:00 AM PDT) + + | Specimen | [...]
--- OUTSIDE RECORDS SUMMARY | ~2019-08-07 | XMS | Encounter Summary ---
Demographics + + + | Address | [address] | | | [place] [address] | + + + | Home Phone | | + + + | Preferred Language | Unknown | + + + | Marital Status | Single | + + + | Scientologist Affiliation | Unknown | + + + | Race | Unknown | + + + | Ethnic Group | Unknown | + + + Author + + + | Author | [facility] | | | and Swapnilana | + + + | Organization | [facility] | | | and Swapnilana | + + + | Address | Unknown | + + + | Phone | Unavailable | + + + Support + + + + + | Name | Relationship | Address | Phone | + + + + + | Octavio Archer | ECON | [place] | | | | | [address] | | + + + + + Care Team Providers + +------+ + | Care Promotions Team Leader Name | Role | Phone | + [...] [place] | | | | | [place] [address] | [place] [address] | | | | | [phone] | | | +--------+ + + + [...] Visit | | MD Mamta [address] | | | | | | [address] [place] | | | | | | [place] [address] | | | | | | [phone] | | | | | | | | +--------+---------+ + + + | 12/06/ | Office | Neurology | Kashmir Matthew MD | | | 2019 | Visit | | [address] | | | | | | [place] | | | | | | [address] | | | | | | | | +--------+---------+ + + + documented as of this encounter Visit Diagnoses Not on filedocumented in this encounter"
--- OUTSIDE RECORDS SUMMARY | ~2019-08-07 | XMS | Encounter Summary ---
Demographics + + + | Address | [address] | | | [place] [address] | + + + | Home Phone | | + + + | Preferred Language | Unknown | + + + | Marital Status | Single | + + + | Faith Affiliation | Unknown | + + + | Race | Unknown | + + + | Ethnic Group | Unknown | + + + Author + + + | Author | [facility] | | | and Swapnilana | + + + | Organization | [facility] | | | and Swapnilana | + + + | Address | Unknown | + + + | Phone | Unavailable | + + + Support + + + + + | Name | Relationship | Address | Phone | + + + + + | Octavio Archer | ECON | [place] | | | | | [address] | | + + + + + Care Team Providers + +------+ + | Care Supervisor Refining Name | Role | Phone | + [...] [address] | | | | | [phone] | [place] [address] | | +--------+ + + + + [...] | | | | | [place] [address] | | | | | | [phone] | | | | | | | | +--------+---------+ + + + | 12/06/ | Office | Neurology | Kashmir Matthew MD | | | 2019 | Visit | | [address] | | | | | | [place] | | | | | | [address] | | | | | | | [...]
--- OUTSIDE RECORDS SUMMARY | ~2019-08-07 | XMS | Encounter Summary ---
Demographics + + + | Address | [address] | | | [place] [address] | + + + | Home Phone | | + + + | Preferred Language | Unknown | + + + | Marital Status | Single | + + + | Yazdanism Affiliation | Unknown | + + + | Race | Unknown | + + + | Ethnic Group | Unknown | + + + Author + + + | Author | [facility] | | | and Swapnilana | + + + | Organization | [facility] | | | and Swapnilana | + + + | Address | Unknown | + + + | Phone | Unavailable | + + + Support + + + + + | Name | Relationship | Address | Phone | + + + + + | Octavio Archer | ECON | [place] | | | | | [address] | | + + + + + Care Team Providers + +------+ + | Care Collision Mechanic Name | Role | Phone | + +------+ + | Adan Welch NP | PCP | | + +------+ + Encounter Details +--------+ + + + + | Date | Type | Department | Care Team | Description | +--------+ + + + + | 03/23/ | Hospital | [facility] | Luis M Back, | Right hip pain | | 2019 | Encounter | MED CTR XRAY [address] | MD [address] | | | | | [place] | [place], [place] | | | | | [place] [address] | [address] | | | | | [phone] | | | | | | | [...] | | | | | | [place] [address] | | | | | | [phone] | | | | | | | | +--------+---------+ + + + | 12/06/ | Office | Neurology | Kashmir Matthew MD | | | 2019 | Visit | | [address] | | | | | | [place] | | | | | | [address] | | | | | | | [...] followed by a 1 cc injection of [id number] | | confirmed intra-articular positioning of the [...]
--- OUTSIDE RECORDS SUMMARY | ~2019-08-07 | XMS | Encounter Summary ---
Demographics + + + | Address | [address] | | | [place] [address] | + + + | Home Phone | | + + + | Preferred Language | Unknown | + + + | Marital Status | Single | + + + | Buddhism Affiliation | Unknown | + + + | Race | Unknown | + + + | Ethnic Group | Unknown | + + + Author + + + | Author | [facility] | | | and Swapnilana | + + + | Organization | [facility] | | | and Swapnilana | + + + | Address | Unknown | + + + | Phone | Unavailable | + + + Support + + + + + | Name | Relationship | Address | Phone | + + + + + | Octavio Archer | ECON | [place] | | | | | [address] | | + + + + + Care Team Providers + +------+ + | Care Member Of Technical Staff Name | Role | Phone | + [...] | pain | [address] | | | | | Procedures | [address] | [address] [place] | | | | | MRI Hip | [place], | [place], [place] | | | | | Right | [place] [address] | [address] | | | | | Arthrogram w | Phone: | Phone: | | | | | Contrast | [phone] | [phone] | | | | | | Fax: | Fax: | | | | | | [phone] | [phone] | +--------+--------+ + + + + Reason [...] | pain | [address] | | | | | Procedures | [address] | [address] [place] | | | | | MRI Hip | [place], | [place], [place] | | | | | Right | [place] [address] | [address] | | | | | Arthrogram w | Phone: | Phone: | | | | | Contrast | [phone] | | | | | | | Fax: | Fax: | | | | | | [phone] | [phone] | +--------+--------+ + + + + Encounter Details +--------+ + + + + | Date | Type | Department | Care Team | Description | +--------+ + + + + | 03/23/ | Hospital | [facility] | Luis M Back, | Right hip pain | | 2019 | Encounter | MED CTR MRI [address] | MD [address] | | | | | [place], | [place], [place] | | | | | [place] [address] | [address] | | | | | [phone] | | | +--------+ + + + [...] | | | | | [place] [address] | | | | | | [phone] | | | | | | | | +--------+---------+ + + + | 12/06/ | Office | Neurology | Kashmir Matthew MD | | | 2019 | Visit | | [address], [place] | | | | | | [place] | | | | | | [address] | | | | | | | [...]
--- OUTSIDE RECORDS SUMMARY | ~2019-08-07 | XMS | Clinical Summary ---
Demographics + + + | Address | [address] | | | [place] [address] | + + + | Home Phone [...] + + + | Author | [facility] | + + + | Organization | [facility] | + + + | Address | Unknown | + + + | Phone | Unavailable | + + + Care Team Providers + +------+ + | Care Dentures Lab Technician Name | Role | Phone | + +------+ + | Adan Welch NP | PCP | | + +------+ + Source Comments ROQUE is fully live on both [facility] Ambulatory and [facility] InPatient.[facility] Allergies Not on File Medications Not on [...] | | | + +--------+ +--------+-------+---------+--------+ | AIRCRAFT LOADMASTER SUPERINTENDENT MEDICAID | AIRCRAFT LOADMASTER SUPERINTENDENT | [id number] | Effect | | | [...] | 1954 | [phone] | [place] [address] | | | [place] | | | 8 (Home) | | + +--------+ +--------+ + +"
--- OUTSIDE RECORDS SUMMARY | ~2019-08-07 | XMS | Encounter Summary ---
Demographics + + + | Address | [address] | | | [place] [address] | + + + | Home Phone | | + + + | Preferred Language | Unknown | + + + | Marital Status | Single | + + + | Gnosticist Affiliation | Unknown | + + + | Race | Unknown | + + + | Ethnic Group | Unknown | + + + Author + + + | Author | [facility] | | | and Swapnilana | + + + | Organization | [facility] | | | and Swapnilana | + + + | Address | Unknown | + + + | Phone | Unavailable | + + + Support + + + + + | Name | Relationship | Address | Phone | + + + + + | Octavio Archer | ECON | [place] | | | | | [address] | | + + + + + Care Team Providers + +------+ + | Care Phototypesetter Operator Name | Role | Phone | + +------+ + PCP | Unavailable | + +------+ + Encounter Details +--------+ + + + + | Date | Type | Department | Care Team | Description | +--------+ + + + + | 11/13/ | Hospital | [facility] | Conversion | Positive PPD | | 2010 | Encounter | SYSTEM RADIOLOGY | Transaction, | | | | | CONVERSION [address] | Provider Unknown | | | | | [address] [place], [place] | | | | | | [address] | (Fax) | | | | | [...] | | | | | [place] [address] | | | | | | [phone] | | | | | | | | +--------+---------+ + + + | 12/06/ | Office | Neurology | Kashmir Matthew MD | | | 2019 | Visit | | [address] | | | | | | [place] | | | | | | [address] | | | | | | | [...] infection. 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
--- OUTSIDE RECORDS SUMMARY | ~2019-08-07 | XMS | Encounter Summary ---
Demographics + + + | Address | [address] | | | [place] [address] | + + + | Home Phone [...] | Author | [facility] | | | and Swapnilana | + + + | Organization | [facility] | | | and Swapnilana | + + + | Address | Unknown | + + + | Phone | Unavailable | + + + Support + + + + + | Name | Relationship | Address | Phone | + + + + + | Octavio Archer | ECON | [place] | | | | | [address] | | + + + + + Care Team Providers + +------+ + | Care Supervisor Park Workers Name | Role | Phone | + [...] | pain | [address] | | | | | Procedures | [address] | [address] [place] | | | | | MRI Hip | [place], | [place], [place] | | | | | Right | [place] [address] | [address] | | | | | Arthrogram w | Phone: | Phone: | | | | | Contrast | [phone] | | | | | | | Fax: | Fax: | | | | | | [phone] | [phone] | +--------+--------+ + + + + Reason [...] Required | | Rehabilitatio | (degenerativ | [address] | [address] | | | | n | e disc | [place] | [place], | | | | | disease), | [place], | [place] [address] | | | | | lumbar | [address] | Phone: | | | | | Lumbar back | [place], | [phone] | | | | | pain with | [place] [address] | Fax: | | | | | radiculopath | Phone: | [phone] | | | | | y affecting | [phone] | | | | | | lower | Fax: | | | | | | extremity | [phone] | | | | | | Other [...] + + | 02/24/ | [facility] | [facility] [place] | Luis M Back, | Right hip pain | | 2019 | Visit | PHYSIATRY [address] | [address] | (Primary Dx); | | | | [place], | [place], [place] | Chronic left-sided | | | | [place] [address] | [address] | low back pain, with | | | | [phone] | | sciatica presence | | | [...] the original. Luis M Back MD [address] [facility] [address] [place], [place] [address] FAX: PHYSICAL MEDICINE AND REHABILITATION H&P CHIEF [...] has no apparent deficits with short or terminologist memory. She has appropriate fund of knowledge [...] the street"), she would be advised to picker and sorter load and unload her daily medications from the pharmacy to [...] | 2018 | Visit | | MD Divya [address] | | | | | | [address] [facility] | | | | | | [place] [address] | | | | | | [phone] | | | | | | | | +--------+---------+ + + + | 12/06/ | Office | Neurology | Kashmir Matthew MD | | | 2019 | Visit | | [address] | | | | | | [place] | | | | | | [address] | | | | | | | [...] followed by a 1 cc injection of [id number] | | confirmed intra-articular positioning of the [...]
--- OUTSIDE RECORDS SUMMARY | ~2019-08-07 | XMS | Encounter Summary ---
Demographics + + + | Address | [address] | | | [place] [address] | + + + | Home Phone | | + + + | Preferred Language | Unknown | + + + | Marital Status | Single | + + + | Rastafarian Affiliation | Unknown | + + + | Race | Unknown | + + + | Ethnic Group | Unknown | + + + Author + + + | Author | [facility] | | | and Swapnilana | + + + | Organization | [facility] | | | and Swapnilana | + + + | Address | Unknown | + + + | Phone | Unavailable | + + + Support + + + + + | Name | Relationship | Address | Phone | + + + + + | Octavio Archer | ECON | [place] | | | | | [address] | | + + + + + Care Team Providers + +------+ + | Care Mobile Crane Operator Name | Role | Phone | [...] [address] [place] | | | | | [phone] | [place] [address] | | +--------+ + + + + [...] | | | | | [place] [address] | | | | | | [phone] | | | | | | | | +--------+---------+ + + + | 12/06/ | Office | Neurology | Kashmir Matthew MD | | | 2019 | Visit | | [address] | | | | | | [place] | | | | | | [address] | | | | | | | [...]
--- OUTSIDE RECORDS SUMMARY | ~2019-08-07 | XMS | Clinical Summary ---
Demographics + + + | Address | [address] | | | [place] [address] | + + + | Home Phone | | + + + | Preferred Language | Unknown | + + + | Marital Status | Single | + + + | Yarsani Affiliation | Unknown | + + + | Race | Unknown | + + + | Ethnic Group | Unknown | + + + Author + + + | Author | [facility] | | | and Swapnilana | + + + | Organization | [facility] | | | and Swapnilana | + + + | Address | Unknown | + + + | Phone | Unavailable | + + + Support + + + + + | Name | Relationship | Address | Phone | + + + + + | Octavio Archer | ECON | [place] | | | | | [address] | | + + + + + Care Team Providers + +------+ + | Care Wood Panel Inspector Name | Role | Phone | + [...] | | | | | [place] [address] | | | | | | [phone] | | | | | | | | +--------+---------+ + + + | 12/06/ | Office | Neurology | Kashmir Matthew MD | | | 2019 | Visit | | [address] | | | | | | [place] | | | | | | [address] | | | | | | | [...] | [employer] | [employer] | [id number] | | [phone] | | Medica | [...] | 1955 | [phone] | [place] [address] | | | [place] | | | 8 (Home) | | + +--------+ +--------+ + + Advance Directives + + + + + | Type | Date Recorded | Patient | Explanation | | | | Parts Representative | | + + + + + | Power of | | | | | Motion Picture Scene Builder | | | | + + + + + | Advance | | | | | Directive | | | | + + + + +
--- OUTSIDE RECORDS SUMMARY | ~2019-08-07 | XMS | Encounter Summary ---
Demographics + + + | Address | [address] | | | [place] [address] | + + + | Home Phone [...] Team Providers + +------+ + | Care Retail Marketing Manager Name | Role | Phone [...] [place] | | | | | | [address] | | | | | | [phone] | | | +--------+ + + + [...]
--- OUTSIDE RECORDS SUMMARY | ~2019-08-07 | XMS | Encounter Summary ---
Demographics + + + | Address | [address] | | | [place] [address] | + + + | Home Phone | | + + + | Preferred Language | Unknown | + + + | Marital Status | Single | + + + | Holiness Affiliation | Unknown | + + + | Race | Unknown | + + + | Ethnic Group | Unknown | + + + Author + + + | Author | [facility] | | | and Swapnilana | + + + | Organization | [facility] | | | and Swapnilana | + + + | Address | Unknown | + + + | Phone | Unavailable | + + + Support + + + + + | Name | Relationship | Address | Phone | + + + + + | Octavio Archer | ECON | [place] | | | | | [address] | | + + + + + Care Team Providers + +------+ + | Care Court Administrator Name | Role | Phone | + [...] [address] | | | | | [place], [address] [place] | | | | | [place] [address] | [place] [address] | | | | | [phone] | [phone] | | | | | | | [...] | | | | | [place] [address] | | | | | | [phone] | | | | | | | | +--------+---------+ + + + | 12/06/ | Office | Neurology | Kashmir Matthew MD | | | 2019 | Visit | | [address] | | | | | | [place] | | | | | | [id number] | | | | | | | | +--------+---------+ + + + documented as of this encounter Visit Diagnoses Not on filedocumented in this encounter"
--- OUTSIDE RECORDS SUMMARY | ~2019-08-07 | XMS | Encounter Summary ---
Demographics + + + | Address | [address] | | | [place] [address] | + + + | Home Phone [...] + + + | Author | [facility] | | | and Swapnilana | + + + | Organization | [facility] | | | and Swapnilana | + + + | Address | Unknown | + + + | Phone | Unavailable | + + + Support + + + + + | Name | Relationship | Address | Phone | + + + + + | Octavio Archer | ECON | [place] | | | | | [address] | | + + + + + Care Team Providers + +------+ + | Care Civil Manager Name | Role | Phone | [...] [place] | | | | | [place] [address] | [place] [address] | | | | | [phone] | | | +--------+ + + + [...] | | | | | | [place] [address] | | | | | | [phone] | | | | | | | | +--------+---------+ + + + | 12/06/ | Office | Neurology | Kashmir Matthew MD | | | 2019 | Visit | | [address] | | | | | | [place] | | | | | | [address] | | | | | | | | +--------+---------+ + + + documented as of this encounter Visit Diagnoses Not on filedocumented in this encounter"
--- OUTSIDE RECORDS SUMMARY | ~2019-08-07 | XMS | Encounter Summary ---
Demographics + + + | Address | [address] | | | [place] [address] | + + + | Home Phone | | + + + | Preferred Language | Unknown | + + + | Marital Status | Single | + + + | Baptist Affiliation | Unknown | + + + | Race | Unknown | + + + | Ethnic Group | Unknown | + + + Author + + + | Author | [facility] | | | and Swapnilana | + + + | Organization | [facility] | | | and Swapnilana | + + + | Address | Unknown | + + + | Phone | Unavailable | + + + Support + + + + + | Name | Relationship | Address | Phone | + + + + + | Octavio Archer | ECON | [place] | | | | | [address] | | + + + + + Care Team Providers + +------+ + | Care Behavioral Health Care Manager Name | Role | Phone | [...] [address] | | | | | [phone] | [place] [address] | | +--------+ + + + + [...] | | | | | [place] [address] | | | | | | [phone] | | | | | | | | +--------+---------+ + + + | 12/06/ | Office | Neurology | Kashmir Matthew MD | | | 2019 | Visit | | [address] | | | | | | [place] | | | | | | [address] | | | | | | | [...]
--- OUTSIDE RECORDS SUMMARY | ~2019-08-07 | XMS | Encounter Summary ---
Demographics + + + | Address | [address] | | | [place] [address] | + + + | Home Phone [...] | Author | [facility] | | | and Swapnilana | + + + | Organization | [facility] | | | and Swapnilana | + + + | Address | Unknown | + + + | Phone | Unavailable | + + + Support + + + + + | Name | Relationship | Address | Phone | + + + + + | Octavio Archer | ECON | [place] | | | | | [address] | | + + + + + Care Team Providers + +------+ + | Care Rn Clinical Documentation Name | Role | Phone | + [...] PHYSIATRY [address] | MD [address] | | | | | [place], | [place], [place] | | | | | [place] [address] | [address] | | | | | [phone] | | | +--------+ + + + [...] | | | | | [place] [address] | | | | | | [phone] | | | | | | | | +--------+---------+ + + + | 12/06/ | Office | Neurology | Kashmir Matthew MD | | | 2019 | Visit | | [address] | | | | | | [place] | | | | | | [address] | | | | | | | | +--------+---------+ + + + documented as of this encounter Visit Diagnoses + + | Diagnosis | + + | Tear of right acetabular labrum, initial encounter - Primary | + + documented in this encounter"
--- OUTSIDE RECORDS SUMMARY | ~2019-08-07 | XMS | Encounter Summary ---
Demographics + + + | Address | [address] | | | [place] [address] | + + + | Home Phone | | + + + | Preferred Language | Unknown | + + + | Marital Status | Single | + + + | Mormonism Affiliation | Unknown | + + + | Race | Unknown | + + + | Ethnic Group | Unknown | + + + Author + + + | Author | [facility] | | | and Swapnilana | + + + | Organization | [facility] | | | and Swapnilana | + + + | Address | Unknown | + + + | Phone | Unavailable | + + + Support + + + + + | Name | Relationship | Address | Phone | + + + + + | Octavio Archer | ECON | [place] | | | | | [address] | | + + + + + Care Team Providers + +------+ + | Care Forward Air Controller/Air Officer Name | Role | Phone | + +------+ + | Adan Welch NP | PCP | | + +------+ + Encounter Details +--------+ + + + + | Date | Type | Department | Care Team | Description | +--------+ + + + + | 03/23/ | Hospital | [facility] | Luis M Back, | Right hip pain | | 2019 | Encounter | MED CTR XRAY [address] | MD [address] | | | | | [place] | [place], [place] | | | | | [place] [address] | [address] | | | | | [phone] | | | | | | | [...] | | | | | | [place] [address] | | | | | | [phone] | | | | | | | | +--------+---------+ + + + | 12/06/ | Office | Neurology | Kashmir Matthew MD | | | 2019 | Visit | | [address] | | | | | | [place] | | | | | | [address] | | | | | | | [...] followed by a 1 cc injection of [id number] | | confirmed intra-articular positioning of the [...]
--- OUTSIDE RECORDS SUMMARY | ~2019-08-07 | XMS | Encounter Summary ---
Demographics + + + | Address | [address] | | | [place] [address] | + + + | Home Phone [...] + | Author | [facility] | | | and Swapnilana | + + + | Organization | [facility] | | | and Swapnilana | + + + | Address | Unknown | + + + | Phone | Unavailable | + + + Support + + + + + | Name | Relationship | Address | Phone | + + + + + | Octavio Archer | ECON | [place] | | | | | [address] | | + + + + + Care Team Providers + +------+ + | Care Anesthesia Assistant Name | Role | Phone | + +------+ + PCP | Unavailable | + +------+ + Encounter Details +--------+ + + + + | Date | Type | Department | Care Team | Description | +--------+ + + + + | 08/28/ | Hospital | [facility] | Minh Coronel MD | | | 1997 - | Encounter | SYSTEM GENERIC IP | | | | | | CONVERSION [place] [place] | | | | 09/01/ | | [address] [place], [place] | | | | 1997 | | [address] | | | | | | [phone] | | | +--------+ + + + [...] | | | | | [place] [address] | | | | | | [phone] | | | | | | | | +--------+---------+ + + + | 12/06/ | Office | Neurology | Kashmir Matthew MD | | | 2020 | Visit | | [address] | | | | | | [place] | | | | | | [id number] | | | | | | | | +--------+---------+ + + + documented as of this encounter Visit Diagnoses Not on filedocumented in this encounter"
--- OUTSIDE RECORDS SUMMARY | ~2019-08-07 | XMS | Encounter Summary ---
Demographics + + + | Address | [address] | | | [place] [address] | + + + | Home Phone | | + + + | Preferred Language | Unknown | + + + | Marital Status | Single | + + + | Sabianism Affiliation | Unknown | + + + | Race | Unknown | + + + | Ethnic Group | Unknown | + + + Author + + + | Author | [facility] | | | and Swapnilana | + + + | Organization | [facility] | | | and Swapnilana | + + + | Address | Unknown | + + + | Phone | Unavailable | + + + Support + + + + + | Name | Relationship | Address | Phone | + + + + + | Octavio Archer | ECON | [place] | | | | | [address] | | + + + + + Care Team Providers + +------+ + | Care Dairy Equipment Mechanic Name | Role | Phone | + +------+ + PCP | Unavailable | + +------+ + Encounter Details +--------+ + + + + | Date | Type | Department | Care Team | Description | +--------+ + + + + | 11/13/ | Hospital | [facility] | Conversion | Positive PPD | | 2010 | Encounter | SYSTEM RADIOLOGY | Transaction, | | | | | CONVERSION [address] | Provider Unknown | | | | | [address] [place], [place] | | | | | | [address] | (Fax) | | | | | [...] | | | | | [place] [address] | | | | | | [phone] | | | | | | | | +--------+---------+ + + + | 12/06/ | Office | Neurology | Kashmir Matthew MD | | | 2019 | Visit | | [address] | | | | | | [place] | | | | | | [address] | | | | | | | [...] Dictated: 11/13/2010 13:16:45 | | | Job: [id number] | | + + + + + [...] | Dictated: 11/13/2010 13:16:45 | | Job: [id number] | + + documented in this encounter Visit Diagnoses + + | Diagnosis | + + | 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
--- OUTSIDE RECORDS SUMMARY | ~2019-08-07 | XMS | Encounter Summary ---
Demographics + + + | Address | [address] | | | [place] [address] | + + + | Home Phone | | + + + | Preferred Language | Unknown | + + + | Marital Status | Single | + + + | Worship Affiliation | Unknown | + + + | Race | Unknown | + + + | Ethnic Group | Unknown | + + + Author + + + | Author | [facility] | | | and Swapnilana | + + + | Organization | [facility] | | | and Swapnilana | + + + | Address | Unknown | + + + | Phone | Unavailable | + + + Support + + + + + | Name | Relationship | Address | Phone | + + + + + | Octavio Archer | ECON | [place] | | | | | [address] | | + + + + + Care Team Providers + +------+ + | Care Automotive Parts Counter Associate Name | Role | Phone | + [...] | pain | [address] | | | | | Procedures | [address] | [address] [place] | | | | | MRI Hip | [place], | [place], [place] | | | | | Right | [place] [address] | [address] | | | | | Arthrogram w | Phone: | Phone: | | | | | Contrast | [phone] | | | | | | | Fax: | Fax: | | | | | | [phone] | [phone] | +--------+--------+ + + + + Reason [...] Required | | Rehabilitatio | (degenerativ | [employer] [address] | | | | n | e disc | [place] | [place], | | | | | disease), | [place], | [place] [address] | | | | | lumbar | [address] | Phone: | | | | | Lumbar back | [place], | [phone] | | | | | pain with | [place] [address] | Fax: | | | | | radiculopath | Phone: | [phone] | | | | | y affecting | [phone] | | | | | | lower | Fax: | | | | | | extremity | [phone] | | | | | | Other [...] | PHYSIATRY [address] | [address] | (Primary Dx); | | | | [place], | [place], [place] | Chronic left-sided | | | | [place] [address] | [address] | low back pain, with | | | | [phone] | | sciatica presence | | | [...] the original. Luis M Back MD [address] [facility], [address] [place], [place] [id number] FAX: PHYSICAL MEDICINE AND REHABILITATION H&P CHIEF [...] has no apparent deficits with short or 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 accountant memory. She has appropriate fund of knowledge [...] 2. 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
--- OUTSIDE RECORDS SUMMARY | ~2019-08-07 | XMS | Encounter Summary ---
Demographics + + + | Address | [address] | | | [place] [address] | + + + | Home Phone [...] Author | [facility] | | | and Swapnilana | + + + | Organization | [facility] | | | and Swapnilana | + + + | Address | Unknown | + + + | Phone | Unavailable | + + + Support + + + + + | Name | Relationship | Address | Phone | + + + + + | Octavio Archer | ECON | [place] | | | | | [address] | | + + + + + Care Team Providers + +------+ + | Care Blowing Engineer Name | Role | Phone | + [...] PHYSIATRY [address] | MD [address] | | | | | [place], | [place], [place] | | | | | [place] [address] | [address] | | | | | [phone] | | | +--------+ + + + [...] | | | | | [place] [address] | | | | | | [phone] | | | | | | | [...]
--- OUTSIDE RECORDS SUMMARY | ~2019-08-07 | XMS | Encounter Summary ---
Demographics + + + | Address | [address] | | | [place] [address] | + + + | Home Phone | | + + + | Preferred Language | Unknown | + + + | Marital Status | Single | + + + | Anabaptist Affiliation | Unknown | + + + | Race | Unknown | + + + | Ethnic Group | Unknown | + + + Author + + + | Author | [facility] | | | and Swapnilana | + + + | Organization | [facility] | | | and Swapnilana | + + + | Address | Unknown | + + + | Phone | Unavailable | + + + Support + + + + + | Name | Relationship | Address | Phone | + + + + + | Octavio Archer | ECON | [place] | | | | | [address] | | + + + + + Care Team Providers + +------+ + | Care Engineer Third Assistant Name | Role | Phone | [...] | CONVERSION [address] | [address] [address] | | | | | [address] [place], [place] | [place], [place] | | | | | [address] | [address] | | | | | [phone] | [phone] | | | | | | | [...] | | | | | [place] [address] | | | | | | [phone] | | | | | | | | +--------+---------+ + + + | 12/06/ | Office | Neurology | Kashmir Matthew MD | | | 2020 | Visit | | [address] | | | | | | [place] | | | | | | [address] | | | | | | | | +--------+---------+ + + + documented as of this encounter Visit Diagnoses Not on filedocumented in this encounter"
--- OUTSIDE RECORDS SUMMARY | ~2019-08-07 | XMS | Encounter Summary ---
Demographics + + + | Address | [address] | | | [place] [address] | + + + | Home Phone | | + + + | Preferred Language | Unknown | + + + | Marital Status | Single | + + + | Latter Day Affiliation | Unknown | + + + | Race | Unknown | + + + | Ethnic Group | Unknown | + + + Author + + + | Author | [facility] | | | and Swapnilana | + + + | Organization | [facility] | | | and Swapnilana | + + + | Address | Unknown | + + + | Phone | Unavailable | + + + Support + + + + + | Name | Relationship | Address | Phone | + + + + + | Octavio Archer | ECON | [place] | | | | | [address] | | + + + + + Care Team Providers + +------+ + | Care Certified Orthoptist Name | Role | Phone | + +------+ + PCP | Unavailable | + +------+ + Encounter Details +--------+ + + + + | Date | Type | Department | Care Team | Description | +--------+ + + + + | 07/16/ | Hospital | [facility] | Minh Grossman P, | | | 2006 | Encounter | SYSTEM EMR | DO [address] | | | | | CONVERSION [address] | [place] [address] | | | | | [address] [place], [place] | [phone] | | | | | [address] | | | | | | [phone] | | | +--------+ + + + [...] | | | | | [place] [address] | | | | | | [phone] | | | | | | | | +--------+---------+ + + + | 12/06/ | Office | Neurology | Kashmir Matthew MD | | | 2020 | Visit | | [address] | | | | | | [place] | | | | | | [address] | | | | | | | | +--------+---------+ + + + documented as of this encounter Visit Diagnoses Not on filedocumented in this encounter"
--- OUTSIDE RECORDS SUMMARY | ~2019-08-07 | XMS | Encounter Summary ---
Demographics + + + | Address | [address] | | | [place] [address] | + + + | Home Phone | | + + + | Preferred Language | Unknown | + + + | Marital Status | Single | + + + | Zoroastrian Affiliation | Unknown | + + + | Race | Unknown | + + + | Ethnic Group | Unknown | + + + Author + + + | Author | [facility] | | | and Swapnilana | + + + | Organization | [facility] | | | and Swapnilana | + + + | Address | Unknown | + + + | Phone | Unavailable | + + + Support + + + + + | Name | Relationship | Address | Phone | + + + + + | Octavio Archer | ECON | [place] | | | | | [address] | | + + + + + Care Team Providers + +------+ + | Care Residential Program Director Name | Role | Phone | + [...] | MED CTR EXTERNAL | MD [address] | | | | | IMAGING | [place] | | | | | [phone] | [place] [address] | | +--------+ + + + + [...] | | | | | [place] [address] | | | | | | [phone] | | | | | | | | +--------+---------+ + + + | 12/06/ | Office | Neurology | Kashmir Matthew MD | | | 2019 | Visit | | [address] | | | | | | [place] | | | | | | [address] | | | | | | | [...]
--- OUTSIDE RECORDS SUMMARY | ~2019-08-07 | XMS | Encounter Summary ---
Demographics + + + | Address | [address] | | | [place] [address] | + + + | Home Phone [...] + | Author | [facility] | | | and Swapinlana | + + + | Organization | [facility] | | | and Swapnilana | + + + | Address | Unknown | + + + | Phone | Unavailable | + + + Support + + + + + | Name | Relationship | Address | Phone | + + + + + | Octavio Archer | ECON | [place] | | | | | [address] | | + + + + + Care Team Providers + +------+ + | Care Insole Lip Turner Name | Role | Phone | + [...] | | [place] | [place] [address] | | | | | [address] | [phone] | | | | | [phone] | | | +--------+ + + + [...] [place] | | | | | | [place] [address] | | | | | | [phone] | | | | | | | | +--------+---------+ + + + | 12/06/ | Office | Neurology | Kashmir Matthew MD | | | 2019 | Visit | | [address] | | | | | | [place] | | | | | | [address] | | | | | | | | +--------+---------+ + + + documented as of this encounter Visit Diagnoses Not on filedocumented in this encounter"
--- OUTSIDE RECORDS SUMMARY | ~2019-08-07 | XMS | Encounter Summary ---
Demographics + + + | Address | [address] | | | [place] [address] | + + + | Home Phone [...] + | Author | [facility] | | | and Swapnilana | + + + | Organization | [facility] | | | and Swapnilana | + + + | Address | Unknown | + + + | Phone | Unavailable | + + + Support + + + + + | Name | Relationship | Address | Phone | + + + + + | Octavio Archer | ECON | [place] | | | | | [address] | | + + + + + Care Team Providers + +------+ + | Care Wet Process Miller Name | Role | Phone | + [...] | 05/02/ | Telephone | [facility] [place] | Luis M Back, | Letter | | 2019 | | PHYSIATRY [address] | MD [address] | | | | | [place], | [place], [place] | | | | | [place] [address] | [address] | | | | | [phone] | | | +--------+ + + + [...] | | | | | [place] [address] | | | | | | [phone] | | | | | | | [...]
--- OUTSIDE RECORDS SUMMARY | ~2019-08-07 | XMS | Encounter Summary ---
Demographics + + + | Address | [address] | | | [place] [address] | + + + | Home Phone | | + + + | Preferred Language | Unknown | + + + | Marital Status | Single | + + + | Alevism Affiliation | Unknown | + + + | Race | Unknown | + + + | Ethnic Group | Unknown | + + + Author + + + | Author | [facility] | | | and Swapnilana | + + + | Organization | [facility] | | | and Swapnilana | + + + | Address | Unknown | + + + | Phone | Unavailable | + + + Support + + + + + | Name | Relationship | Address | Phone | + + + + + | Octavio Archer | ECON | [place] | | | | | [address] | | + + + + + Care Team Providers + +------+ + | Care Analytical Data Scientist Name | Role | Phone | [...] PHYSIATRY [address] | MD [address] | | | | | [place], | [place], [place] | | | | | [place] [address] | [address] | | | | | [phone] | | | +--------+ + + + [...] | | | | | [place] [address] | | | | | | [phone] | | | | | | | | +--------+---------+ + + + | 12/06/ | Office | Neurology | Kashmir Matthew MD | | | 2019 | Visit | | [address] | | | | | | [place] | | | | | | [id number] | | | | | | | | +--------+---------+ + + + documented as of this encounter Visit Diagnoses Not on filedocumented in this encounter"
--- OUTSIDE RECORDS SUMMARY | ~2019-08-07 | XMS | Clinical Summary ---
Demographics + + + | Address | [address] | | | [place] [address] | + + + | Home Phone | | + + + | Preferred Language | Unknown | + + + | Marital Status | Single | + + + | Sikh Affiliation | Unknown | + + + | Race | White | + + + | Ethnic Group | Other Race | + + + Author + + + | Author | [facility] | + + + | Organization | [facility] | + + + | Address | Unknown | + + + | Phone | Unavailable | + + + Care Team Providers + +------+ + | Care Devil Tender Name | Role | Phone | + +------+ + | Adan Welch NP | PCP | | + +------+ + Source Comments ROQUE is fully live on both [facility] and [facility] InPatient.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
--- OUTSIDE RECORDS SUMMARY | ~2019-08-07 | XMS | Encounter Summary ---
Demographics + + + | Address | [address] | | | [place] [address] | + + + | Home Phone [...] | Author | [facility] | | | and Swapnilana | + + + | Organization | [facility] | | | and Swapnilana | + + + | Address | Unknown | + + + | Phone | Unavailable | + + + Support + + + + + | Name | Relationship | Address | Phone | + + + + + | Octavio Archer | ECON | [place] | | | | | [address] | | + + + + + Care Team Providers + +------+ + | Care Hammer Shop Supervisor Name | Role | Phone | [...] PHYSIATRY [address] | MD [address] | | | | | [place], | [place], [place] | | | | | [place] [address] | [address] | | | | | [phone] | | | +--------+ + + + [...] | | | | | [place] [address] | | | | | | [phone] | | | | | | | [...]
--- OUTSIDE RECORDS SUMMARY | ~2019-08-07 | XMS | Encounter Summary ---
Demographics + + + | Address | [address] | | | [place] [address] | + + + | Home Phone | | + + + | Preferred Language | Unknown | + + + | Marital Status | Single | + + + | Quaker Affiliation | Unknown | + + + | Race | Unknown | + + + | Ethnic Group | Unknown | + + + Author + + + | Author | [facility] | | | and Swapnilana | + + + | Organization | [facility] | | | and Swapnilana | + + + | Address | Unknown | + + + | Phone | Unavailable | + + + Support + + + + + | Name | Relationship | Address | Phone | + + + + + | Octavio Archer | ECON | [place] | | | | | [address] | | + + + + + Care Team Providers + +------+ + | Care Breakdown Mill Operator Name | Role | Phone | [...] | [facility] [place] | Luis M Bakc, | Results | | 2018 | | PHYSIATRY [address] | MD [address] | | | | | [place], | [place], [place] | | | | | [place] [address] | [address] | | | | | [phone] | | | +--------+ + + + [...] | | | | | [place] [address] | | | | | | [phone] | | | | | | | | +--------+---------+ + + + | 12/06/ | Office | Neurology | Kashmir Matthew MD | | | 2019 | Visit | | [address] | | | | | | [place] | | | | | | [address] | | | | | | | | +--------+---------+ + + + documented as of this encounter Visit Diagnoses Not on filedocumented in this encounter"
--- OUTSIDE RECORDS SUMMARY | ~2019-08-07 | XMS | Encounter Summary ---
Demographics + + + | Address | [address] | | | [place] [address] | + + + | Home Phone [...] + + + | Author | [facility] | | | and Swapnilana | + + + | Organization | [facility] | | | and Swapnilana | + + + | Address | Unknown | + + + | Phone | Unavailable | + + + Support + + + + + | Name | Relationship | Address | Phone | + + + + + | Octavio Archer | ECON | [place] | | | | | [address] | | + + + + + Care Team Providers + +------+ + | Care Respiratory Medicine Physician Name | Role | Phone | + [...] | | | | | acetabular | [address] | [address] | | | | | labrum, | [place], | [address] | | | | | initial | [place] [address] | [place] | | | | | encounter | Phone: | [phone] | | | | | Right hip | [phone] | Phone: | | | | | pain Right | Fax: | [phone] | | | | | leg weakness | [phone] | Fax: | | | | | | | [phone] | +--------+ + + + + + Encounter Details +--------+ + + + + | Date | Type | Department | Care Team | Description | +--------+ + + + + | 04/11/ | Orders Only | [facility] [place] | Luis M Back, | Tear of right | | 2018 | | PHYSIATRY [address] | [address] | acetabular labrum, | | | | [address], | [place], [place] | initial encounter | | | | [place] [address] | [address] | (Primary Dx); Right | | | | [phone] | | hip pain; Right leg | [...] | | | | | | [place] [address] | | | | | | [phone] | | | | | | | | +--------+---------+ + + + | 12/06/ | Office | Neurology | Kashmir Matthew MD | | | 2019 | Visit | | [address] | | | | | | [place], [place] | | | | | | [address] | | | | | | | [...]
[~2019-08-07 15:10] MED LIST changes: +BUPRENORPHINE HC2 MG SL
--- OUTSIDE RECORDS SUMMARY | 2019-08-07 15:12 | XMS ---
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 Care History Medical/Surgical 06/21/2019 [facility] - DR DUARTE REVIEWED PATIENT MRI AND IMAGING REPORTS - DOES NOT FEEL PATIENT NEEDS TO BE SEEN BY AN ORTHOPEDIC SURGEON. - REFERRED PATIENT TO PAIN MANAGEMENT PHYSICIAN DR ROMIE LOERA. - PATIENT PCP OFFICE-[facility] NOTIFIED OF THE DECISION 06/20/2019 [facility] - PATIENT IS CURRENTLY RECEIVING PAIN MANAGEMENT FROM DR ROMIE LOERA- PLEASE CONTACT DR LOERA IF ANY PAIN MEDICATIONS ARE ADMINISTERED TO PATIENT. - PATIENT HAS A REFERRAL TO ORTHOPEDIC SURGEON DR DUARTE ON 06/14/19. E.D. VISIT COUNT (12 MO.) 5 [facility]. TOTAL 5 NOTE: Visits indicate total known visits. ED/UCC VISIT TRACKING (12 MO.) 2019 15:11 [facility] [place] TYPE: Emergency COMPLAINT: - PAIN NON INJURY 06/19/2019 23:33 [facility] [place] TYPE: Emergency COMPLAINT: - BACK PAIN DIAGNOSES: - Low back pain - Other jail (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 - Major depressive disorder, single episode, unspecified - Nicotine dependence, unspecified, uncomplicated 04/11/2019 09:08 [facility] [place] TYPE: Emergency COMPLAINT: - RIGHT LEG PAIN/NON INJURY DIAGNOSES: - Pain in right thigh - Anxiety disorder, unspecified - Nicotine dependence, unspecified, uncomplicated - Other jail (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 - Other chronic pain - Pain in right hip - Major depressive disorder, single episode, unspecified - Low back pain 02/14/2019 12:00 [facility] [place] TYPE: Emergency COMPLAINT: - RIGHT LEG PAIN NON INJURY DIAGNOSES: - Cramp and spasm - Nicotine dependence, unspecified, uncomplicated - Muscle spasm of calf - 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 - Anxiety disorder, unspecified - Major depressive disorder, single episode, unspecified 09/15/2018 20:24 [facility] [place] TYPE: Emergency COMPLAINT: - L LEG SWELLING DIAGNOSES: - Unsp inj musc/tend post grp at low leg level, left leg, init - Pain in left lower leg - Nicotine dependence, unspecified, uncomplicated - Anxiety disorder, unspecified - 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
--- NOTE | 2019-08-08 08:02 | EKG ---
[facility] [address] [place], [place] [address] Signed Normal sinus rhythm Normal ECG No previous ECGs available Confirmed by EDMUNDO LOUISE MD ([id number]) on 08/08/2019 8:01:59 AM Electronically Signed By: EDMUNDO LOUISE MD 08/08/19 0802 PATIENT NAME: PAIGE RIGGS Electrocardiogram DATE OF : 59 PHYSICIAN: EDMUNDO LOUISE MD REPORT #: [id number] REPORT IS CONFIDENTIAL AND NOT TO BE RELEASED WITHOUT AUTHORIZATION
== END 2019-08-07 18:05 | disposition home or self-care (01) ==
LOC: ED 15:10
DX: M51.36 Other intervertebral disc degeneration, lumbar region (principal); F32.9 Major depressive disorder, single episode, unspecified; F41.9 Anxiety disorder, unspecified; Z79.899 Other long term (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
CPT/HCPCS: 36415; 71046; 80053; 85025; 86141; 93005; 93010; 99284-25

== ENCOUNTER 2019-08-25 16:31 | Emergency (ER) | payer OTHER ==
[~2019-08-25] VITALS: Ht 162.6 cm; Wt 47.6 kg
--- OUTSIDE RECORDS SUMMARY | ~2019-08-25 | XMS | Encounter Summary ---
Demographics + + + | Address | [address] | | | [place] [address] | + + + | Home Phone | | + + + | Preferred Language | Unknown | + + + | Marital Status | Single | + + + | Amish Affiliation | Unknown | + + + | Race | White | + + + | Ethnic Group | Other Race | + + + Author + + + | Author | [facility] | + + + | Organization | [facility] | + + + | Address | Unknown | + + + | Phone | Unavailable | + + + Care Team Providers + +------+ + | Care Staffing Recruiter Name | Role | Phone | + [...] | anned | Jerri Smith | MD [facility] | | | | | Clinic [address] | | | | | [address] [place] | | | | | | [address] | | | | | | [phone] | | | +--------+ + + + [...]
--- OUTSIDE RECORDS SUMMARY | ~2019-08-25 | XMS | Encounter Summary ---
Demographics + + + | Address | [address] | | | [place] [address] | + + + | Home Phone | | + + + | Preferred Language | Unknown | + + + | Marital Status | Single | + + + | Evangelical Affiliation | Unknown | + + + | Race | Unknown | + + + | Ethnic Group | Unknown | + + + Author + + + | Author | [facility] | | | and Swapnilana | + + + | Organization | [facility] | | | and Swapnilana | + + + | Address | Unknown | + + + | Phone | Unavailable | + + + Support + + + + + | Name | Relationship | Address | Phone | + + + + + | Octavio Archer | ECON | [place] | | | | | [address] | | + + + + + Care Team Providers + +------+ + | 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 | Role | Phone | + +------+ + PCP | Unavailable | + +------+ + Encounter Details +--------+ + + + + | Date | Type | Department | Care Team | Description | +--------+ + + + + | 11/13/ | Hospital | [facility] | Conversion | Positive PPD | | 2010 | Encounter | SYSTEM RADIOLOGY | Transaction, | | | | | CONVERSION [address] | Provider Unknown | | | | | [address] [place], [place] | | | | | | [address] | (Fax) | | | | | [...] Description | +--------+---------+ + + + | 09/06/ | Office | Neurosurgery | Wiley Maldonado | | | 2019 | Visit | | MD Cheryl [address] | | | | | | [place] | | | | | | [place] [address] | | | | | | [phone] | | | | | | | | +--------+---------+ + + + | 12/06/ | Office | Neurology | Kashmir Matthew MD | | | 2019 | Visit | | [address] | | | | | | [place] | | | | | | [address] | | | | | | | | +--------+---------+ + + + documented as of this encounter Procedures + +--------+ + + + | Procedure Name | Priori | Date/Time | Associated Diagnosis | Comments | | | ty | | | | + +--------+ + + + | XR CHEST 2 VIEWS | Routin | 11/13/2010 | | Results for this | | | e | 11:23 AM | | procedure are in the | | | | PDT | | results section. | + +--------+ + + + documented in this encounter Results XR Chest 2 Vws (11/13/2010 11:23 AM PDT) + + | Specimen | + + | | + + + + + | Impressions | Performed At | + + + | Normal. No radiographic evidence for TB infection. [facility] | | | Dictated by: VERONIKA COE Dictated: 11/13/2010 13:16:45 | | | Job: [id number] | | + + + + + + | Narrative | Performed At | + + + | CHEST RADIOGRAPHY XR CHEST 2 VIEWS DATE: Nov 13, 2010 11:23:00 | | | AM. HISTORY: Positive PPD. COMPARISONS: None. FINDINGS: | | | Volume: Normal. Lungs/Pleura: No nodules, consolidation, or edema. | | | No effusion or pneumothorax. Normal pulmonary vasculature. | | | Mediastinum: No adenopathy or cardiac enlargement. Bones: | | | Unremarkable. Other: None. | | + + + + + | Procedure Note | + + | Nicho Azevedo Conversion - 01/29/2019 9:31 AM PDT CHEST RADIOGRAPHY | | XR CHEST 2 VIEWS | | | | DATE: Nov 13, 2010 11:23:00 AM. | | | | HISTORY: Positive PPD. | | | | COMPARISONS: None. | | | | FINDINGS: | | Volume: Normal. | | | | Lungs/Pleura: No nodules, consolidation, or edema. No effusion or | | pneumothorax. Normal pulmonary vasculature. | | | | Mediastinum: No adenopathy or cardiac enlargement. | | | | Bones: Unremarkable. | | | | Other: None. | | | | IMPRESSION: | | Normal. No radiographic evidence for TB infection. 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
--- OUTSIDE RECORDS SUMMARY | ~2019-08-25 | XMS | Encounter Summary ---
Demographics + + + | Address | [address] | | | [place] [address] | + + + | Home Phone | | + + + | Preferred Language | Unknown | + + + | Marital Status | Single | + + + | Amish Affiliation | Unknown | + + + | Race | Unknown | + + + | Ethnic Group | Unknown | + + + Author + + + | Author | [facility] | | | and Swapnilana | + + + | Organization | [facility] | | | and Swapnilana | + + + | Address | Unknown | + + + | Phone | Unavailable | + + + Support + + + + + | Name | Relationship | Address | Phone | + + + + + | Octavio Archer | ECON | [place] | | | | | [address] | | + + + + + Care Team Providers + +------+ + | Care Child Support Officer Name | Role | Phone | + +------+ + | Adan Welch NP | PCP | | + +------+ + Reason for Visit +---------+ + | Reason | Comments | +---------+ + | Results | | +---------+ + Encounter Details +--------+ + + + + | Date | Type | Department | Care Team | Description | +--------+ + + + + | 03/24/ | Telephone | [facility] [place] | Luis M Back, | Results | | 2018 | | PHYSIATRY [address] | MD [address] | | | | | [place], | [place], [place] | | | | | [place] [address] | [address] | | | | | [phone] | | | +--------+ + + + [...] Neurosurgery | Wiley Maldonado | | | 2020 | Visit | | MD Cheryl [address] | | | | | | [address] [place] | | | | | | [place] [address] | | | | | | [phone] | | | | | | | | +--------+---------+ + + + | 12/06/ | Office | Neurology | Kashmir Matthew MD | | | 2019 | Visit | | [address] | | | | | | [place] | | | | | | [phone] | | | | | | | | +--------+---------+ + + + documented as of this encounter Visit Diagnoses Not on filedocumented in this encounter"
--- OUTSIDE RECORDS SUMMARY | ~2019-08-25 | XMS | Encounter Summary ---
Demographics + + + | Address | [address] | | | [place] [address] | + + + | Home Phone | | + + + | Preferred Language | Unknown | + + + | Marital Status | Single | + + + | Anabaptism Affiliation | Unknown | + + + | Race | Unknown | + + + | Ethnic Group | Unknown | + + + Author + + + | Author | [facility] | | | and Swapnilana | + + + | Organization | [facility] | | | and Swapnilana | + + + | Address | Unknown | + + + | Phone | Unavailable | + + + Support + + + + + | Name | Relationship | Address | Phone | + + + + + | Octavio Archer | ECON | [place] | | | | | [address] | | + + + + + Care Team Providers + +------+ + | Care Voucher Examiner Name | Role | Phone | + +------+ + | Adan Welch NP | PCP | | + +------+ + Reason for Referral Diagnostic/Screening (Routine) +--------+--------+ + + + + | Status | Reason | Specialty | Diagnoses / | Referred By | Referred To | | | | | Procedures | Contact | Contact | +--------+--------+ + + + + | Closed | | Radiology | Diagnoses | Back, | [facility] | | | | | Right hip | Luis M Crowell MD | Imaging [address] | | | | | pain | [address] | | | | Procedures | [address] | [address] [place] | | | | | MRI Hip | [place], | [place], [place] | | | | | Right | [place] [address] | [address] | | | | | Arthrogram w | Phone: | Phone: | | | | | Contrast | [phone] | | | | | | | Fax: | Fax: | | | | | | [phone] | [phone] | +--------+--------+ + + + + Reason for Visit + + + | Reason | Comments | + + + | Hip Pain | | + + + Evaluate & Treat (Routine) + +--------+ + + + + | Status | Reason | Specialty | Diagnoses / | Referred By | Referred To | | | | | Procedures | Contact | Contact | + +--------+ + + + + | Authorizatio | | Physical | Diagnoses | Yuri, | Back, Luis M | | n not | | Medicine and | DDD | Adan Rogel, | E MD [address] | | Required | | Rehabilitatio | (degenerativ | [employer] [address] | | | | n | e disc | [facility] | [place], | | | | | disease), | [place], | [place] [address] | | | | | lumbar | [address] | Phone: | | | | | Lumbar back | [place], | [phone] | | | | | pain with | [place] [address] | Fax: | | | | | radiculopath | Phone: | [phone] | | | | | y affecting | [phone] | | | | | | lower | Fax: | | | | | | extremity | [phone] | | | | | | Other | | | | | | | chronic pain | | | | | | | | | | | | | | Spondylosis, | | | | | | | lumbar, | | | | | | | with | | | | | | | myelopathy | | | + +--------+ + + + + Encounter Details +--------+---------+ + + + | Date | Type | Department | Care Team | Description | +--------+---------+ + + + | 02/24/ | [facility] [place] | Luis M Back, | Right hip pain | | 2019 | Visit | PHYSIATRY [address] | (Primary Dx); | | | | [place], | [place], [place] | Chronic left-sided | | | | [place] [address] | [address] | low back pain, with | | | | [phone] | | sciatica presence | | | | | | unspecified; Right | | | | | | leg weakness; | | | | | | Homelessness; | | | | | | Alcohol abuse, in | | | | | | remission | +--------+---------+ + + + Social History + + [...] + + documented as of this encounter Last Filed Vital Signs + + + [...] | | + + + + + documented in this encounter Progress Notes Luis M Back MD - 02/24/2019 9:00 AM PDTFormatting of this note might be different fro m the original. Luis M Back MD [address] [facility] [place], [place] [id number] FAX: PHYSICAL MEDICINE AND REHABILITATION H&P CHIEF COMPLAINT: Chief Complaint Patient presents with Hip Pain HISTORY OF PRESENT ILLNESS: Josey Segundo s a 63 y.o. female being seen today at the request of Adan Welch NP for the complaint of right back, right groin, and buttocks pain that began summer. She reports that the pain started without any inciting event a mis s step and trip over a hose. The symptoms have been rapidly worsening. Josey Segundo rates the pain as severe. The symptoms are daily, continuous. Josey Segundo describes the pain as cramping, aching, dull, sharp, shooting, throbbing and ti ght band. Josey Segundo does report numbness in the right lateral thigh intermittently. She does report weakness of the right night. Josey Segundo does not report any change in bowel or bladder function or saddle anest hesia recently. Her symptoms improve with nothing. Her symptoms worsen with changing position, movement of hip, walking and light exertion. Josey Segundo indicates she "lives on the streets". She indicates sleeping is difficu lty, as she does not have a bed. Josey Segundo has tried opiates, PT, Massage, NSAIDS and Muscle relaxers. Josey Segundo most recent course of physical therapy was completed within the last year. Gala Segundo is currently taking gabapentin 800 mg twice daily. She indicates is mildly h elpful in reducing pain. She reports when she uses it in the morning she gets a "high" that only last an hour. PAST MEDICAL HISTORY: Past Medical History: Diagnosis Date Actinic keratosis Alcohol abuse, in remission Anxiety Anxiety with depression Bronchitis Chronic pain Chronic pain disorder DDD (degenerative disc disease), lumbar Depression Genital herpes GERD (gastroesophageal reflux disease) Herpes History of positive PPD Insomnia Insomnia Lumbar back pain with radiculopathy affecting left lower extremity Onychomycosis Other chronic pain Pain in finger of left hand Polymyalgia (HCC) Positive TB test Primary osteoarthritis, right ankle and foot Right hip pain Seborrheic keratosis Spondylosis, lumbar, with myelopathy PAST SURGICAL HISTORY: Past Surgical History: Procedure Laterality Date CARPAL TUNNEL RELEASE Bilateral 1998 CURRENT MEDICATIONS: Current Outpatient Medications Medication Sig Dispense Refill acyclovir (ZOVIRAX) 200 mg capsule Take 2 capsules by mouth tid for flareups of herpes citalopram (CELEXA) 40 mg tablet Take 40 mg by mouth Daily. cyclobenzaprine (FLEXERIL) 10 mg tablet Take 10 mg by mouth Twice daily as needed for Muscle spasms. fluticasone (FLONASE) 50 mcg/nasal spray 1 spray by Nasal route Daily. gabapentin (NEURONTIN) 800 MG tablet Take 800 mg by mouth 2 times daily. lamoTRIgine (LAMICTAL) 200 MG tablet Take 400 mg by mouth nightly. omeprazole (PRILOSEC) 20 mg TBEC Take 20 mg by mouth Daily. No current facility-administered medications for this visit. ALLERGIES: No Known Allergies SOCIAL HISTORY: The patient reports that she has been smoking e-cigarettes. She does not have any smokele ss tobacco history on file. She reports that she drank alcohol. She reports that she does no t use drugs. FAMILY HISTORY: Family History Problem Relation Age of Onset No known problems Mother No known problems Father No known problems Maternal Grandmother No known problems Maternal Grandfather No known problems Paternal Grandmother No known problems Paternal Grandfather REVIEW OF SYSTEMS: Review of Systems Constitutional: Positive for malaise/fatigue. Eyes: Blurred vision: glasses Respiratory: Snore Cardiovascular: TB Gastrointestinal: Positive for constipation. Musculoskeletal: Positive for back pain and joint pain. Neurological: Positive for tingling and weakness. Psychiatric/Behavioral: Positive for depression. The patient is nervous/anxious. The patien t does not have insomnia. Homeless PHYSICAL EXAMINATION: Blood pressure 134/70, pulse 73, resp. rate 18, height 1.626 m (5' 4"), weight 49.9 kg (110 lb). Body mass index is 18.88 kg/m. GENERAL: She does not appear uncomfortable when seated. HEENT: HEAD/FACE: EYES: Normocephalic and atraumatic. There are no areas of recent trauma. Normal sclerae without icterus. SKIN Limited skin exam shows no significant rashes or lesions. CHEST: The patient is in no acute respiratory distress with unlabored respirations. HEART: There is not lower extremity edema. ABDOMEN: The patient is not overweight. NEUROLOGIC: The patient is awake, alert, and oriented to time, place, person. She follows simple and complex commands. Her speech is fluent. She comprehends speech well. She has no apparent deficits with short or manager terminal memory. She has appropriate fund of knowledge Cranial nerves appear grossly intact. Sensory exam:intact sensation to light touch in the upper and lower extremities. MOTOR EXAM: (5 IS NORMAL) * Indicates pain limited MUSCLE/ MOVEMENT: RIGHT LEFT Hip Flexion 5 5 Hip Extension 5 5 Knee Flexion 4+* 5 Knee Extension 5 5 Extensor Hallicus Longus 5 5 Ankle Dorsiflexion 5 5 Plantarflexion 5 5 MUSCULOSKELETAL Right impingement positive Reports pain with right knee flexion against resistance* RADIOGRAPHIC REVIEW: Lumbar and right x-ray completed on 10/04/18 was reviewed personally by me , I concur with the results as reported by the Radiologist. The imaging demonstrates: unremarkable right hip imaging and degenerative disc disease, spondylosis and L4-L5 listhesis . IMPRESSION: 1. Right hip pain 2. Chronic left-sided low back pain, with sciatica presence unspecified 3. Right leg weakness 4. Homelessness 5. Alcohol abuse, in remission PLAN: 1. Josey Segundo presents to the clinic today for evaluation and treatment of right h ip and right sided back pain. 2. The differential diagnosis most consistent with Josey Segundo's physical assessmen t and report of symptoms included, but is not limited to: right labral tear and/or right ham string tear. 3. Josey Segundo will have a right hip MR arthrogram. She has been suffering from thi s pain for one year. She indicates pain is greatly effecting her quality of life. She repo rts a history of right hip injury following a fall that proceeded with bruising of the inte rior right thigh. Imaging will evaluate for evidence of Labral tear, hamstring tear, or ri ght groin injury. completion of advanced imaging is necessary for guidance future treatment . Will anticipate a referral request for orthopedic consult. Josey Segundo was advised of the available treatments for these differential diagnosi s including; neuropathic pain medication, interventional steroid injections, and surgical in tervention. 4. Medication management of symptoms was discussed during today's visit. We discussed sandeep t the goal of medication use is to make symptoms of pain and numbness less noticeable. Medic ation use is not expected to fix or cure the cause of her symptoms. She indicates that she is using gabapentin 800 mg twice daily. She indicates that has inte rest in increasing the frequency of this medication. We discussed that potentially an indivi dual may take 800 mg four times daily. We discussed that any and all medication changes should be discussed and prescribed by her PCP. We discussed that given her current living situation (per Patient she is currently "astrid ing the street"), she would be advised to turkey picker her daily medications from the pharmacy to assure safe storing of the medication. Medication such as gabapentin should be prescribed with caution, as Josey Segundo has a history of addiction and alcoholism. She also reports she get a "high" from the medicat ion. She is at very high risk for gabapentin abuse. She self reports that she is homeless and that homeless people sell their gabapentin so peo ple can get high. We reviewed the risks of taking more medication than prescribed. We revi ewed the risks of taking medication not prescribed specifically for her. Alternative medication that may be considered including Cymbalta, which can be used for art hritic pain. She was advised to discuss these recommendation further with her PCP, Adan Welch, SHAN. 5. Josey Segundo will be scheduled to return to the clinic in 4-5 weeks to review he r imaging results, and formulate a treatment plan. In summary, Josey Segundo's clinical presentation is most consistent with hip pain an d labral tear. She has failed conservative measures including PT, time, NSAIDs. Her sympto ms are effecting function and quality of life. Her medical care is complicated by being flex eless. She was offered social work consult, but declines. She is at high risk for medicati on abuse. She will have right hip MRI/MRA to evaluate origin of pain. If MRI is positive, likely will request orthopedic surgery consult, may see her back to consider hip steroid inj ection. Thank you for allowing me to be involved in the care of your patient. If you have any ques tions regarding the care of your patient please don't hesitate to call. Approximately 45 minutes was spent face to face with Josey Segundo, over half of whic h was spent formulating and discussing their medical treatment plan. I, Luis M Back MD personally performed the services described in this documentation, as scribed by in my presence, Stefani Kamara RN and are both accurate and complete. Luis M Back MD - 02/24/2019 CC:Adan Welch NP documented in this en counter Plan of Treatment +--------+---------+ + + + | Date | Type | Specialty | Care Team | Description | +--------+---------+ + + + | 09/06/ | Office | Neurosurgery | Wiley Maldonado | | | 2019 | Visit | | MD Cheryl [address] | | | | | | [address] | | | | | | [place] [address] | | | | | | [phone] | | | | | | | | +--------+---------+ + + + | 12/06/ | Office | Neurology | Kashmir Matthew MD | | 2019 | Visit | | [address] | | | | | | [place] | | | | | | [phone] | | | | | | | | +--------+---------+ + + + documented as of this encounter Results MRI Hip Right Arthrogram w Contrast (03/23/2019 9:01 AM PDT) + + | Specimen | + + | | + + + + + | Narrative | Performed At | + + + | MRI HIP RIGHT ARTHROGRAM W CONTRAST 03/23/2019 8:44 AM HISTORY: | [facility] | | Right hip pain, right hip injury after fall. COMPARISON: Multiple | | | priors. PROTOCOL: Arthrogram of the right hip was performed | | | earlier the same day. MRI of both hips were obtained with the | | | following sequences: Coronal T1, axial proton density fat sat. MRI | | | focused on the right hip were obtained with the following sequence: | | | Coronal T1 fat sat, axial oblique T1 fat sat, sagittal T1 fat sat, | | | coronal proton density fat sat. FINDINGS: Right: There are no | | | acute osseous findings. Marrow signal is normal. Articular cartilage | | | is intact. There is a small tear in the superior labrum measuring 4 | | | mm. Tiny fissures are noted of the inferior labrum. There are some | | | mild fraying involving the iliofemoral ligament. The pubofemoral and | | | ischiofemoral ligaments are intact. The ligamentum teres and jayant | | | orbicularis are normal. A mild grade tear is observed in the anterior | | | aspect of the transverse ligament. Contrast is in the joint space | | | consistent with arthrography. Adjacent soft tissues are unremarkable. | | | Left: Osseous signal is normal. Adjacent soft tissue structures | | | demonstrate no acute findings. Bladder is normal. The uterus is | | | not well seen. Imaged small bowel and colon show no acute findings. | | | Iliac vessels are normal. No enlarged lymph nodes are seen. There is | | | no evidence for free fluid or pneumoperitoneum. Body wall soft tissue | | | structures are normal. There are no acute osseous abnormalities. | | | IMPRESSION - Right hip with small tear in superior labrum and tiny | | | fissures of the inferior labrum. There is some mild fraying involving | | | the iliofemoral ligament. A mild grade tear is seen in the anterior | | | aspect of the transverse ligament. Dictated and Signed by: Wander | | | MD Gurinder Electronically signed: 03/23/2019 3:05 PM | | + + + + + | Procedure Note | + + | Roberto Carlos, Rad Results In - 03/23/2019 3:08 PM PDT MRI HIP RIGHT ARTHROGRAM W CONTRAST | | 03/23/2019 8:44 AM HISTORY: Right hip pain, right hip injury after fall.COMPARISON: | | Multiple priors.PROTOCOL: Arthrogram of the right hip was performed earlier the same | | day.MRI of both hips were obtained with the following sequences: Coronal T1, axialproton | | density fat sat.MRI focused on the right hip were obtained with the following sequence: | | CoronalT1 fat sat, axial oblique T1 fat sat, sagittal T1 fat sat, coronal protondensity | | fat sat.FINDINGS:Right: There are no acute osseous findings. Marrow signal is normal. | | Articularcartilage is intact. There is a small tear in the superior labrum measuring | | 4mm. Tiny fissures are noted of the inferior labrum. There are some mild | | frayinginvolving the iliofemoral ligament. The pubofemoral and ischiofemoral | | ligamentsare intact. The ligamentum teres and jayant orbicularis are normal. A mild | | gradetear is observed in the anterior aspect of the transverse ligament. Contrast isin | | the joint space consistent with arthrography. Adjacent soft tissues | | areunremarkable.Left: Osseous signal is normal. Adjacent soft tissue structures | | demonstrate noacute findings.Bladder is normal. The uterus is not well seen. Imaged | | small bowel and colonshow no acute findings. Iliac vessels are normal. No enlarged lymph | | nodes areseen. There is no evidence for free fluid or pneumoperitoneum. Body wall | | softtissue structures are normal. There are no acute osseous abnormalities.IMPRESSION | | -Right hip with small tear in superior labrum and tiny fissures of the inferiorlabrum. | | There is some mild fraying involving the iliofemoral ligament. A mildgrade tear is seen | | in the anterior aspect of the transverse ligament.Dictated and Signed by: Wander Fairchild, | | Electronically signed: 03/23/2019 3:05 PM | |unremarkable. | | | |Left: Osseous signal is normal. Adjacent soft tissue structures demonstrate no | |acute findings. | | | |Bladder is normal. The uterus is not well seen. Imaged small bowel and colon | |show no acute findings. Iliac vessels are normal. No enlarged lymph nodes are | |seen. There is no evidence for free fluid or pneumoperitoneum. Body wall soft | |tissue structures are normal. There are no acute osseous abnormalities. | | | |IMPRESSION - | |Right hip with small tear in superior labrum and tiny fissures of the inferior | |labrum. There is some mild fraying involving the iliofemoral ligament. A mild | |grade tear is seen in the anterior aspect of the transverse ligament. | | | |Dictated and Signed by: Wander Fairchild MD | | Electronically signed: 03/23/2019 3:05 PM | + + + +---------+ + + | Performing | Address | City/State/Zipcode | Phone Number | | Organization | | | | + +---------+ + + | [facility] | | | | + +---------+ + + [place] Hip Injection Right for MRI or CT (03/23/2019 8:21 AM PDT) + + | Specimen | + + | | + + + + + | Narrative | Performed At | + + + | EXAM: Fluoroscopic hip arthrogram date 03/23/2019 1:01 PM | [facility] | | PROCEDURE: The risks, benefits, indications, and alternatives were | | | discussed with the patient in advance. Informed consent was | | | obtained and documented. The patients clinical information and | | | prior imaging studies, if available, were reviewed prior to the | | | procedure. The patient was placed supine on the fluoroscopy table. | | | A timeout was taken. Fluoroscopy was utilized to planned | | | percutaneous access to the right hip. The skin entrance site was | | | marked. This was then prepped and draped in the usual sterile | | | manner. Local anesthesia was obtained at the skin surface and deep | | | toward the joint using 3 cc of 1% lidocaine or Xylocaine, without | | | epinephrine. A 22-gauge 3 1/2 inch spinal needle was then advanced, | | | under fluoroscopic guidance, into the hip joint. A 2 cc injection | | | of lidocaine or Xylocaine followed by a 1 cc injection of Omnipaque | | | 300 confirmed intra-articular positioning of the needle tip. An | | | additional 6-8 cc's of a dilute gadolinium contrast mixture were | | | further injected. Intermittent fluoroscopy was utilized to confirm | | | intra-articular positioning of the needle tip and diffusion of the | | | contrast material. The needle was removed. Hemostasis was achieved | | | at the skin surface. A Band-Aid was applied. There were no | | | immediate complications. The patient was transferred to the MRI | | | suite for completion of the MRI arthrogram. IMPRESSION - | | | Successful right hip arthrogram prior to MRI. Dictated and Signed | | | by: Eduardo Elias MD Electronically signed: 03/23/2019 1:01 PM | | + + + + + | Procedure Note | + + | Roberto Carlos, Rad Results In - 03/23/2019 1:04 PM PDT EXAM: Fluoroscopic hip arthrogram date | | 03/23/2019 1:01 PMPROCEDURE: The risks, benefits, indications, and alternatives were | | discussedwith the patient in advance. Informed consent was obtained and documented. | | Thepatients clinical information and prior imaging studies, if available, werereviewed | | prior to the procedure. The patient was placed supine on thefluoroscopy table. A | | timeout was taken. Fluoroscopy was utilized to plannedpercutaneous access to the right | | hip. The skin entrance site was marked. Thiswas then prepped and draped in the usual | | sterile manner. Local anesthesia wasobtained at the skin surface and deep toward the | | joint using 3 cc of 1%lidocaine or Xylocaine, without epinephrine. A 22-gauge 3 1/2 | | inch spinalneedle was then advanced, under fluoroscopic guidance, into the hip joint. A | | 2cc injection of lidocaine or Xylocaine followed by a 1 cc injection of [id number] | | confirmed intra-articular positioning of the needle tip. An additional 6-8cc's of a | | dilute gadolinium contrast mixture were further injected. Intermittent fluoroscopy was | | utilized to confirm intra-articular positioning ofthe needle tip and diffusion of the | | contrast material. The needle was removed. Hemostasis was achieved at the skin surface. | | A Band-Aid was applied. Therewere no immediate complications. The patient was | | transferred to the MRI suitefor completion of the MRI arthrogram.IMPRESSION - Successful | | right hip arthrogram prior to MRI.Dictated and Signed by: Eduardo Elias MD | | Electronically signed: 03/23/2019 1:01 PM | |for completion of the MRI arthrogram. | | | |IMPRESSION - | | | |Successful right hip arthrogram prior to MRI. | | | |Dictated and Signed by: Eduardo Elias MD | | Electronically signed: 03/23/2019 1:01 PM | + + + +---------+ + + | Performing | Address | City/State/Zipcode | Phone Number | | Organization | | | | + +---------+ + + | [facility] | | | | + +---------+ + + documented in this encounter Visit Diagnoses + + | Diagnosis | + + | Right hip pain - Primary Pain in joint, pelvic region and thigh | + + | Chronic left-sided low back pain, with sciatica presence unspecified | + + | Right leg weakness Other musculoskeletal symptoms referable to limbs | + + | Homelessness Lack of housing | + + | Alcohol abuse, in remission Nondependent alcohol abuse, in remission | + + documented in this encounter
--- OUTSIDE RECORDS SUMMARY | ~2019-08-25 | XMS | Encounter Summary ---
Demographics + + + | Address | [address] | | | [place] [address] | + + + | Home Phone | | + + + | Preferred Language | Unknown | + + + | Marital Status | Single | + + + | Bahai Affiliation | Unknown | + + + | Race | Unknown | + + + | Ethnic Group | Unknown | + + + Author + + + | Author | [facility] | | | and Swapnilana | + + + | Organization | [facility] | | | and Swapnilana | + + + | Address | Unknown | + + + | Phone | Unavailable | + + + Support + + + + + | Name | Relationship | Address | Phone | + + + + + | Octavio Archer | ECON | [place] | | | | | [address] | | + + + + + Care Team Providers + +------+ + | Care Metal Tube Cutter Name | Role | Phone | + [...] | pain | [address] | | | | | Procedures | [address] | [address] [place] | | | | | MRI Hip | [place], | [place], [place] | | | | | Right | [place] [address] | [address] | | | | | Arthrogram w | Phone: | Phone: | | | | | Contrast | [phone] | | | | | | | Fax: | Fax: | | | | | | [phone] | [phone] | +--------+--------+ + + + + Reason [...] Required | | Rehabilitatio | (degenerativ | JUNIOR PROJECT COORDINATOR [address] | | | | n | e disc | [place] | [place], | | | | | disease), | [place], | [place] [address] | | | | | lumbar | [address] | Phone: | | | | | Lumbar back | [place], | [phone] | | | | | pain with | [place] [address] | Fax: | | | | | radiculopath | Phone: | [phone] | | | | | y affecting | [phone] | | | | | | lower | Fax: | | | | | | extremity | [phone] | | | | | | Other [...] + + | 02/24/ | [facility] | [facility] [place] | Luis M Back, | Right hip pain | | 2019 | Visit | PHYSIATRY [address] | [address] | (Primary Dx); | | | | [place], | [place], [place] | Chronic left-sided | | | | [place] [address] | [address] | low back pain, with | | | | [phone] | | sciatica presence | | | [...] the original. Luis M Back MD [address] [facility] [address] [place], [place] [id number] FAX: [facility]YSICAL MEDICINE AND REHABILITATION H&P CHIEF [...] opiates, PT, Massage, NSAIDS and Muscle relaxers. 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 She has appropriate fund of knowledge [...] the street"), she would be advised to pick up man her daily medications from the pharmacy to [...] [place] | | | | | | [place] [address] | | | | | | [phone] | | | | | | | | +--------+---------+ + + + | 12/06/ | Office | Neurology | Kashmir Matthew MD | | 2019 | Visit | | [address] | | | | | | [place] | | | | | | [id number] | | | | | | | [...] Dictated and Signed | | | by: Edaurdo Elias MD Electronically signed: 03/23/2019 1:01 PM [...] followed by a 1 cc injection of [id number] | | confirmed intra-articular positioning of the [...]
--- OUTSIDE RECORDS SUMMARY | ~2019-08-25 | XMS | Encounter Summary ---
Demographics + + + | Address | [address] | | | [place] [address] | + + + | Home Phone | | + + + | Preferred Language | Unknown | + + + | Marital Status | Single | + + + | Mandaen Affiliation | Unknown | + + + | Race | Unknown | + + + | Ethnic Group | Unknown | + + + Author + + + | Author | [facility] | | | and Swapnilana | + + + | Organization | [facility] | | | and Swapnilana | + + + | Address | Unknown | + + + | Phone | Unavailable | + + + Support + + + + + | Name | Relationship | Address | Phone | + + + + + | Octavio Archer | ECON | [place] | | | | | [address] | | + + + + + Care Team Providers + +------+ + | Care Collection Specialist Name | Role | Phone | + +------+ + PCP | Unavailable | + +------+ + Encounter Details +--------+ + + + + | Date | Type | Department | Care Team | Description | +--------+ + + + + | 05/18/ | Hospital | [facility] | Conversion | | | 1996 | Encounter | SYSTEM RADIOLOGY | Transaction, | | | | | CONVERSION [address] | Provider Unknown | | | | | [address] [place], [place] | | | | | | [address] | (Fax) | | | | | [...] | | | | | [place] [address] | | | | | | [phone] | | | | | | | | +--------+---------+ + + + | 12/06/ | Office | Neurology | Kashmir Matthew MD | | | 2020 | Visit | | [address] | | | | | | [place] | | | | | | [id number] | | | | | | | | +--------+---------+ + + + documented as of this encounter Visit Diagnoses Not on filedocumented in this encounter"
--- OUTSIDE RECORDS SUMMARY | ~2019-08-25 | XMS | Encounter Summary ---
Demographics + + + | Address | [address] | | | [place] [address] | + + + | Home Phone | | + + + | Preferred Language | Unknown | + + + | Marital Status | Single | + + + | Sikhism Affiliation | Unknown | + + + | Race | Unknown | + + + | Ethnic Group | Unknown | + + + Author + + + | Author | [facility] | | | and Swapnilana | + + + | Organization | [facility] | | | and Swapnilana | + + + | Address | Unknown | + + + | Phone | Unavailable | + + + Support + + + + + | Name | Relationship | Address | Phone | + + + + + | Octavio Archer | ECON | [place] | | | | | [address] | | + + + + + Care Team Providers + +------+ + | Care Fishing Tool Supervisor Name | Role | Phone | + +------+ + PCP | Unavailable | + +------+ + Encounter Details +--------+ + + + + | Date | Type | Department | Care Team | Description | +--------+ + + + + | 07/16/ | Hospital | [facility] | Minh Grossman P, | | | 2006 | Encounter | SYSTEM EMR | DO [address] | | | | | CONVERSION [address] | [place] [address] | | | | | [address] [place], [place] | [phone] | | | | | [address] | | | | | | [phone] | | | +--------+ + + + [...] | | | | | [place] [address] | | | | | | [phone] | | | | | | | | +--------+---------+ + + + | 12/06/ | Office | Neurology | Kashmir Matthew MD | | | 2020 | Visit | | [address] | | | | | | [place] | | | | | | [phone] | | | | | | | | +--------+---------+ + + + documented as of this encounter Visit Diagnoses Not on filedocumented in this encounter"
--- OUTSIDE RECORDS SUMMARY | ~2019-08-25 | XMS | Encounter Summary ---
Demographics + + + | Address | [address] | | | [place] [address] | + + + | Home Phone | | + + + | Preferred Language | Unknown | + + + | Marital Status | Single | + + + | Shinto Affiliation | Unknown | + + + | Race | Unknown | + + + | Ethnic Group | Unknown | + + + Author + + + | Author | [facility] | | | and Swapnilana | + + + | Organization | [facility] | | | and Swapnilana | + + + | Address | Unknown | + + + | Phone | Unavailable | + + + Support + + + + + | Name | Relationship | Address | Phone | + + + + + | Octavio Archer | ECON | [place] | | | | | [address] | | + + + + + Care Team Providers + +------+ + | Care Scalloper Name | Role | Phone | + +------+ + | Adan Welch NP | PCP | | + +------+ + Encounter Details +--------+ + + + + | Date | Type | Department | Care Team | Description | +--------+ + + + + | 12/03/ | Abstract | [facility] [place] | Provider, | | | 2019 | | PHYSIATRY [address] | MD [address] | | | | | [address], | [address] | | | | | [place] [address] | [place] [address] | | | | | [phone] | | | +--------+ + + + + Social History + + + +--------+------+ | Tobacco Use | Types | Packs/Day | Years | Date | | | | | Used | | + + + +--------+------+ | Current Every Day | E-Cigarettes | | | | | Smoker | | | | | + + + +--------+------+ + + +---------+ + | Alcohol Use [...] Visit | | MD Cheryl [address] | | | | | | [address] | | | | | | [place] [address] | | | | | | [phone] | | | | | | | | +--------+---------+ + + + | 12/06/ | Office | Neurology | Kashmir Matthew MD | | 2019 | Visit | | [address] | | | | | | [place] | | | | | | [address] | | | | | | | | +--------+---------+ + + + documented as of this encounter Visit Diagnoses Not on filedocumented in this encounter"
--- OUTSIDE RECORDS SUMMARY | ~2019-08-25 | XMS | Encounter Summary ---
Demographics + + + | Address | [address] | | | [place] [address] | + + + | Home Phone | | + + + | Preferred Language | Unknown | + + + | Marital Status | Single | + + + | Jehovah'S Witness Affiliation | Unknown | + + + | Race | Unknown | + + + | Ethnic Group | Unknown | + + + Author + + + | Author | [facility] | | | and Swapnilana | + + + | Organization | [facility] | | | and Swapnilana | + + + | Address | Unknown | + + + | Phone | Unavailable | + + + Support + + + + + | Name | Relationship | Address | Phone | + + + + + | Octavio Archer | ECON | [place] | | | | | [address] | | + + + + + Care Team Providers + +------+ + | Care Put In Beat Adjuster Name | Role | Phone | + +------+ + PCP | Unavailable | + +------+ + Encounter Details +--------+ + + + + | Date | Type | Department | Care Team | Description | +--------+ + + + + | 08/28/ | Hospital | [facility] | Minh Coronel MD | | | 1997 - | Encounter | SYSTEM GENERIC IP | | | | | | CONVERSION [place] | | | | 09/01/ | | [address] [place], [place] | | | | 1997 | | [address] | | | | | | [phone] | | | +--------+ + + + [...] | | | | | [place] [address] | | | | | | [phone] | | | | | | | | +--------+---------+ + + + | 12/06/ | Office | Neurology | Kashmir Matthew MD | | | 2020 | Visit | | [address] | | | | | | [place] | | | | | | [phone] | | | | | | | | +--------+---------+ + + + documented as of this encounter Visit Diagnoses Not on filedocumented in this encounter"
--- OUTSIDE RECORDS SUMMARY | ~2019-08-25 | XMS | Encounter Summary ---
Demographics + + + | Address | [address] | | | [place] [address] | + + + | Home Phone | | + + + | Preferred Language | Unknown | + + + | Marital Status | Single | + + + | Orthodox Affiliation | Unknown | + + + | Race | Unknown | + + + | Ethnic Group | Unknown | + + + Author + + + | Author | [facility] | | | and Swapnilana | + + + | Organization | [facility] | | | and Swapnilana | + + + | Address | Unknown | + + + | Phone | Unavailable | + + + Support + + + + + | Name | Relationship | Address | Phone | + + + + + | Octavio Archer | ECON | [place] | | | | | [address] | | + + + + + Care Team Providers + +------+ + | Care Carrot Buncher Name | Role | Phone | + +------+ + | Divya Eubanks | PCP | | + +------+ + Reason for Visit + + + | Reason | Comments | + + + | Symptom Management | Has new info and symptoms to review | + + + | Results | See MRI results of 08/01 and let patient know if anything else is | | | needed. | + + + Encounter Details +--------+ + + + + | Date | Type | Department | Care Team | Description | +--------+ + + + + | 08/22/ | Telephone | [facility] | Jaime Jerez | Symptom Management | | 2020 | | NEUR[address]URGERY [address] | MD Mamta [address] | (Has new info and | | | | [address] | [address] [place] | symptoms to review); | | | | [place] | [place] [address] | Results (See MRI | | | | [address] | [phone] | results of 08/01 and | | | | [phone] | | let patient know if | | | | | | anything else is | | | | | | needed. ) | +--------+ + + + + Social [...] | | + +---+---+---+ + + | Comments: vaping nicotine | + + + + +---------+ + [...] | | | | | [place] [address] | | | | | | [phone] | | | | | | | | +--------+---------+ + + + | 12/06/ | Office | Neurology | Kashmir Matthew MD | | | 2019 | Visit | | [address] | | | | | | [place] | | | | | | [address] | | | | | | | | +--------+---------+ + + + documented as of this encounter Visit Diagnoses Not on filedocumented in this encounter"
--- OUTSIDE RECORDS SUMMARY | ~2019-08-25 | XMS | Encounter Summary ---
Demographics + + + | Address | [address] | | | [place] [address] | + + + | Home Phone | | + + + | Preferred Language | Unknown | + + + | Marital Status | Single | + + + | Zoroastrianism Affiliation | Unknown | + + + | Race | Unknown | + + + | Ethnic Group | Unknown | + + + Author + + + | Author | [facility] | | | and Swapnilana | + + + | Organization | [facility] | | | and Swapnilana | + + + | Address | Unknown | + + + | Phone | Unavailable | + + + Support + + + + + | Name | Relationship | Address | Phone | + + + + + | Octavio Archer | ECON | [place] | | | | | [address] | | + + + + + Care Team Providers + +------+ + | Care Car Shifter Name | Role | Phone | + [...] [address] | | | | | [place] [address], | [address] [place] | | | | | [place] [address] | [place] [address] | | | | | [phone] | [phone] | | | | | | | [...] | | | | | [place] [address] | | | | | | [phone] | | | | | | | | +--------+---------+ + + + | 12/06/ | Office | Neurology | Kashmir Matthew MD | | | 2019 | Visit | | [address] | | | | | | [place] | | | | | | [phone] | | | | | | | | +--------+---------+ + + + documented as of this encounter Visit Diagnoses Not on filedocumented in this encounter"
--- OUTSIDE RECORDS SUMMARY | ~2019-08-25 | XMS | Encounter Summary ---
Demographics + + + | Address | [address] | | | [place] [address] | + + + | Home Phone | | + + + | Preferred Language | Unknown | + + + | Marital Status | Single | + + + | Tenriism Affiliation | Unknown | + + + | Race | Unknown | + + + | Ethnic Group | Unknown | + + + Author + + + | Author | [facility] | | | and Swapnilana | + + + | Organization | [facility] | | | and Swapnilana | + + + | Address | Unknown | + + + | Phone | Unavailable | + + + Support + + + + + | Name | Relationship | Address | Phone | + + + + + | Octavio Archer | ECON | [place] | | | | | [address] | | + + + + + Care Team Providers + +------+ + | Care Visitor Service Assistant Name | Role | Phone | + +------+ + | Divya Eubanks | PCP | | + +------+ + Reason for Visit +---------+ + | Reason | Comments | +---------+ + | Results | | +---------+ + Encounter Details +--------+ + + + + | Date | Type | Department | Care Team | Description | +--------+ + + + + | 08/11/ | Telephone | [facility] [place] | Jaime Jerez | Results | | 2019 | | NEUROSURGERY [address] | E, [address] | | | | | [address] | [address] [place] | | | | | [place], [place] | [place] [address] | | | | | [address] | [phone] | | | | | [phone] | | | +--------+ + + + [...] | | | | | | [place] [address] | | | | | | [phone] | | | | | | | | +--------+---------+ + + + | 12/06/ | Office | Neurology | Kashmir Matthew MD | | | 2020 | Visit | | [address] | | | | | | [place] | | | | | | [address] | | | | | | | | +--------+---------+ + + + documented as of this encounter Visit Diagnoses Not on filedocumented in this encounter"
--- OUTSIDE RECORDS SUMMARY | ~2019-08-25 | XMS | Encounter Summary ---
Demographics + + + | Address | [address] | | | [place] [address] | + + + | Home Phone | | + + + | Preferred Language | Unknown | + + + | Marital Status | Single | + + + | Zoroastrianism Affiliation | Unknown | + + + | Race | Unknown | + + + | Ethnic Group | Unknown | + + + Author + + + | Author | [facility] | | | and Swapnilana | + + + | Organization | [facility] | | | and Swapnilana | + + + | Address | Unknown | + + + | Phone | Unavailable | + + + Support + + + + + | Name | Relationship | Address | Phone | + + + + + | Octavio Archer | ECON | [place] | | | | | [address] | | + + + + + Care Team Providers + +------+ + | Care Agricultural Technical Officer Name | Role | Phone | [...] | pain | [address] | | | | | Procedures | [address] | [address] [place] | | | | | MRI Hip | [place], | [place], [place] | | | | | Right | [place] [address] | [address] | | | | | Arthrogram w | Phone: | Phone: | | | | | Contrast | [phone] | [phone] | | | | | | Fax: | Fax: | | | | | | [phone] | [phone] | +--------+--------+ + + + + Reason [...] | pain | [address] | | | | | Procedures | [address] | [address] [place] | | | | | MRI Hip | [place], | [place], [place] | | | | | Right | [place] [address] | [address] | | | | | Arthrogram w | Phone: | Phone: | | | | | Contrast | [phone] | | | | | | | Fax: | Fax: | | | | | | [phone] | [phone] | +--------+--------+ + + + + Encounter Details +--------+ + + + + | Date | Type | Department | Care Team | Description | +--------+ + + + + | 03/23/ | Hospital | [facility] | Luis M Back, | Right hip pain | | 2019 | Encounter | MED CTR MRI [address] | MD [address] | | | | | [place], | [place], [place] | | | | | [place] [address] | [address] | | | | | [phone] | | | +--------+ + + + [...] | | | | | [place] [address] | | | | | | [phone] | | | | | | | | +--------+---------+ + + + | 12/06/ | Office | Neurology | Kashmir Matthew MD | | | 2019 | Visit | | [address] | | | | | | [place] | | | | | | [address] | | | | | | | [...]
--- OUTSIDE RECORDS SUMMARY | ~2019-08-25 | XMS | Encounter Summary ---
Demographics + + + | Address | [address] | | | [place] [address] | + + + | Home Phone | | + + + | Preferred Language | Unknown | + + + | Marital Status | Single | + + + | Adventism Affiliation | Unknown | + + + | Race | Unknown | + + + | Ethnic Group | Unknown | + + + Author + + + | Author | [facility] | | | and Swapnilana | + + + | Organization | [facility] | | | and Swapnilana | + + + | Address | Unknown | + + + | Phone | Unavailable | + + + Support + + + + + | Name | Relationship | Address | Phone | + + + + + | Octavio Archer | ECON | [place] | | | | | [address] | | + + + + + Care Team Providers + +------+ + | Care Tank Setter Helper Name | Role | Phone | + [...] + + | 07/06/ | Telephone | [facility] [place] | Luis M Back, | Results | | 2018 | | PHYSIATRY [address] | MD [address] | | | | | [place], | [place], [place] | | | | | [place] [address] | [address] | | | | | [phone] | | | +--------+ + + + [...] | | | | | [place] [address] | | | | | | [phone] | | | | | | | | +--------+---------+ + + + | 12/06/ | Office | Neurology | Kashmir Matthew MD | | | 2019 | Visit | | [address] | | | | | | [place] | | | | | | [address] | | | | | | | | +--------+---------+ + + + documented as of this encounter Visit Diagnoses + + | Diagnosis | + + | Tear of right acetabular labrum, initial encounter - Primary | + + documented in this encounter"
--- OUTSIDE RECORDS SUMMARY | ~2019-08-25 | XMS | Encounter Summary ---
Demographics + + + | Address | [address] | | | [place] [address] | + + + | Home Phone | | + + + | Preferred Language | Unknown | + + + | Marital Status | Single | + + + | Congregation Affiliation | Unknown | + + + | Race | Unknown | + + + | Ethnic Group | Unknown | + + + Author + + + | Author | [facility] | | | and Swapnilana | + + + | Organization | [facility] | | | and Swapnilana | + + + | Address | Unknown | + + + | Phone | Unavailable | + + + Support + + + + + | Name | Relationship | Address | Phone | + + + + + | Octavio Archer | ECON | [place] | | | | | [address] | | + + + + + Care Team Providers + +------+ + | Care Center Medical Specialist Name | Role | Phone | + +------+ + PCP | Unavailable | + +------+ + Encounter Details +--------+ + + + + | Date | Type | Department | Care Team | Description | +--------+ + + + + | 11/13/ | Hospital | [facility] | Conversion | Positive PPD | | 2010 | Encounter | SYSTEM RADIOLOGY | Transaction, | | | | | CONVERSION [address] | Provider Unknown | | | | | [address] [place], [place] | | | | | | [address] | (Fax) | | | | | [...] | | | | | [place] [address] | | | | | | [phone] | | | | | | | | +--------+---------+ + + + | 12/06/ | Office | Neurology | Kashmir Matthew MD | | | 2019 | Visit | | [address] | | | | | | [place] | | | | | | [address] | | | | | | | [...] Dictated: 11/13/2010 13:16:45 | | | Job: [id number] | | + + + + + [...] | Dictated: 11/13/2010 13:16:45 | | Job: [id number] | + + documented in this encounter Visit Diagnoses + + | Diagnosis | + + | 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
--- OUTSIDE RECORDS SUMMARY | ~2019-08-25 | XMS | Clinical Summary ---
Demographics + + + | Address | [address] | | | [place] [address] | + + + | Home Phone | | + + + | Preferred Language | Unknown | + + + | Marital Status | Single | + + + | Christianity Affiliation | Unknown | + + + | Race | White | + + + | Ethnic Group | Other Race | + + + Author + + + | Author | [facility] | + + + | Organization | [facility] | + + + | Address | Unknown | + + + | Phone | Unavailable | + + + Care Team Providers + +------+ + | Care Tap Grinder Name | Role | Phone | + +------+ + | Adna Welch NP | PCP | | + +------+ + Source Comments ROQUE is fully live on both [facility] and [facility] InPatient.[facility] Allergies Not on File Medications Not on file Active Problems Not on file Social History + +-------+ +--------+------+ | Tobacco [...] | + + Last Filed Vital Signs Not on file Plan of Treatment + + + + + | Health Maintenance | Due Date | Last Done | Comments | + + + + + | Influenza (Flu) | | | | | vaccination (#1) | 9 | | | + + + + + | Pneumococcal | Aged Out | | No longer eligible | | vaccination | | | based on patient's | | | | | age to complete this | | | | | topic | + + + + + Results Not on filefrom Last 3 Months Insurance + +--------+ +--------+-------+---------+--------+ | Payer | Benefi | Subscriber | Effect | Phone | Address | Type | | | t Plan | ID | osmel | | | | | | / | | Dates | | | | | | Group | | | | | | + +--------+ +--------+-------+---------+--------+ | [employer] MEDICAID | [employer] EM[employer]OYEE | xxxxxxxx | Effect | | | Medica | | | [place] | | osm[place] | | | id | | | [place] | | for | | | | | | | | all | | | | | | | | dates | | | | + +--------+ +--------+-------+---------+--------+ + +--------+ +--------+ + + | Guarantor Name | Accoun | Relation to | Date | Phone | Billing Address | | | t Type | Patient | of | | | | | | | | | | + +--------+ +--------+ + + | Taisha Segundo | Person | Self [birth year] | [address] | | | [place] | | 1954 | [phone] | [place] [address] | | | [place]ari | | | [address] (Home) | | + +--------+ +--------+ + +"
--- OUTSIDE RECORDS SUMMARY | ~2019-08-25 | XMS | Encounter Summary ---
Demographics + + + | Address | [address] | | | [place] [address] | + + + | Home Phone | | + + + | Preferred Language | Unknown | + + + | Marital Status | Single | + + + | Cheondoism Affiliation | Unknown | + + + | Race | Unknown | + + + | Ethnic Group | Unknown | + + + Author + + + | Author | [facility] | | | and Swapnilana | + + + | Organization | [facility] | | | and Swapnilana | + + + | Address | Unknown | + + + | Phone | Unavailable | + + + Support + + + + + | Name | Relationship | Address | Phone | + + + + + | Octavio Archer | ECON | [place] | | | | | [address] | | + + + + + Care Team Providers + +------+ + | Care Electronic Warfare Officer Name | Role | Phone | + +------+ + | Divya Eubanks | PCP | | + +------+ + Reason for Visit + + + | Reason | Comments | + + + | Pain Management | intial encounter | + + + Encounter Details +--------+ + + + + | Date | Type | Department | Care Team | Description | +--------+ + + + + | 08/08/ | Documentati | [facility] [place] | Jaime Jerez | Pain Management | | 2019 | on | [address] | E[address] | (intial encounter) | | | | [address] | [address] [place] | | | | | [place], [place] | [place] [address] | | | | | [address] | [phone] | | | | | [phone] | | | +--------+ + + + [...] + + documented as of this encounter Progress Notes Angeles Segura Cert MA - 08/08/2019 6:55 AM PSTPatient states she is not taking pain med ications. (medication strength, dose, frequency) The following information was obtained from [email or web address] on 08/08/19. [facility] was checked on 08/08/19 and no medications have been dispensed in the last 3 months. documented in th is encounter Plan of Treatment +--------+---------+ + + + | Date | Type | Specialty | Care Team | Description | +--------+---------+ + + + | 09/06/ | Office | Neurosurgery | Wiley Maldonado | | | 2019 | Visit | | MD Cheryl [address] | | | | | | [address] | | | | | | [place] [address] | | | | | | [phone] | | | | | | | | +--------+---------+ + + + | 12/06/ | Office | Neurology | Kashmir Matthew MD | | | 2019 | Visit | | [address] | | | | | | [place] | | | | | | [phone] | | | | | | | | +--------+---------+ + + + documented as of this encounter Visit Diagnoses Not on filedocumented in this encounter"
--- OUTSIDE RECORDS SUMMARY | ~2019-08-25 | XMS | Encounter Summary ---
Demographics + + + | Address | [address] | | | [place] [address] | + + + | Home Phone | | + + + | Preferred Language | Unknown | + + + | Marital Status | Single | + + + | Restorationist Affiliation | Unknown | + + + | Race | Unknown | + + + | Ethnic Group | Unknown | + + + Author + + + | Author | [facility] | | | and Swapnilana | + + + | Organization | [facility] | | | and Swapnilana | + + + | Address | Unknown | + + + | Phone | Unavailable | + + + Support + + + + + | Name | Relationship | Address | Phone | + + + + + | Octavio Archer | ECON | [place] | | | | | [address] | | + + + + + Care Team Providers + +------+ + | Care Edge Trimmer Mechanic Name | Role | Phone | + [...] PHYSIATRY [address] | MD [address] | | | | | [place], | [place], [place] | | | | | [place] [address] | [address] | | | | | [phone] | | | +--------+ + + + [...] | | | | | [place] [address] | | | | | | [phone] | | | | | | | | +--------+---------+ + + + | 12/06/ | Office | Neurology | Kashmir Matthew MD | | | 2019 | Visit | | [address] | | | | | | [place] | | | | | | [address] | | | | | | | | +--------+---------+ + + + documented as of this encounter Visit Diagnoses + + | Diagnosis | + + | Tear of right acetabular labrum, initial encounter - Primary | + + documented in this encounter"
--- OUTSIDE RECORDS SUMMARY | ~2019-08-25 | XMS | Encounter Summary ---
Demographics + + + | Address | [address] | | | [place] [address] | + + + | Home Phone | | + + + | Preferred Language | Unknown | + + + | Marital Status | Single | + + + | Muslim Affiliation | Unknown | + + + | Race | Unknown | + + + | Ethnic Group | Unknown | + + + Author + + + | Author | [facility] | | | and Swapnilana | + + + | Organization | [facility] | | | and Swapnilana | + + + | Address | Unknown | + + + | Phone | Unavailable | + + + Support + + + + + | Name | Relationship | Address | Phone | + + + + + | Octavio Archer | ECON | [place] | | | | | [address] | | + + + + + Care Team Providers + +------+ + | Care Last Puller Name | Role | Phone | + [...] [address] [place] | | | | | [place], [place] | [place] [address] | | | | | [address] | [phone] | | | | | [phone] | | | +--------+ + + + [...] frequency) The following information was obtained from [email or web address] on 08/08/19. [facility] was checked on 08/08/19 [...] | | | | | [place] [address] | | | | | | [phone] | | | | | | | | +--------+---------+ + + + | 12/06/ | Office | Neurology | Kashmir Matthew MD | | | 2019 | Visit | | [address] | | | | | | [place] | | | | | | [phone] | | | | | | | | +--------+---------+ + + + documented as of this encounter Visit Diagnoses Not on filedocumented in this encounter"
--- OUTSIDE RECORDS SUMMARY | ~2019-08-25 | XMS | Encounter Summary ---
Demographics + + + | Address | [address] | | | [place] [address] | + + + | Home Phone | | + + + | Preferred Language | Unknown | + + + | Marital Status | Single | + + + | Lutheran Affiliation | Unknown | + + + | Race | Unknown | + + + | Ethnic Group | Unknown | + + + Author + + + | Author | [facility] | | | and Swapnilana | + + + | Organization | [facility] | | | and Swapnilana | + + + | Address | Unknown | + + + | Phone | Unavailable | + + + Support + + + + + | Name | Relationship | Address | Phone | + + + + + | Octavio Archer | ECON | [place] | | | | | [address] | | + + + + + Care Team Providers + +------+ + | Care Cota Name | Role | Phone | + [...] [address] | | | | | [phone] | [place] [address] | | +--------+ + + + + [...] | | | | | [place] [address] | | | | | | [phone] | | | | | | | | +--------+---------+ + + + | 12/06/ | Office | Neurology | Kashmir Matthew MD | | | 2019 | Visit | | [address] | | | | | | [place] | | | | | | [address] | | | | | | | | +--------+---------+ + + + documented as of this encounter Procedures + +--------+ + + + | Procedure Name | Priori | Date/Time | Associated Diagnosis | Comments | | | ty | | | | + +--------+ + + + | XR HIP RIGHT 2-3 | Routin | 10/04/2018 | | Results for this | | VIEWS | e | 1:25 PM | | procedure are in the | | | | PST | | results section. | + +--------+ + + + documented in this encounter Results XR Hip Right 2-3 Views (10/04/2018 1:25 PM PST) + + | Specimen | [...]
--- OUTSIDE RECORDS SUMMARY | ~2019-08-25 | XMS | Encounter Summary ---
Demographics + + + | Address | [address] | | | [place] [address] | + + + | Home Phone | | + + + | Preferred Language | Unknown | + + + | Marital Status | Single | + + + | Denominational Affiliation | Unknown | + + + | Race | Unknown | + + + | Ethnic Group | Unknown | + + + Author + + + | Author | [facility] | | | and Swapnilana | + + + | Organization | [facility] | | | and Swapnilana | + + + | Address | Unknown | + + + | Phone | Unavailable | + + + Support + + + + + | Name | Relationship | Address | Phone | + + + + + | Octavio Archer | ECON | [place] | | | | | [address] | | + + + + + Care Team Providers + +------+ + | Care Traveler Changer Name | Role | Phone | + [...] [address] | | | | | [phone] | [place] [address] | | +--------+ + + + + [...] | | | | | [place] [address] | | | | | | [phone] | | | | | | | | +--------+---------+ + + + | 12/06/ | Office | Neurology | Kashmir Matthew MD | | | 2019 | Visit | | [address] | | | | | | [place] | | | | | | [address] | | | | | | | [...]
--- OUTSIDE RECORDS SUMMARY | ~2019-08-25 | XMS | Encounter Summary ---
Demographics + + + | Address | [address] | | | [place] [address] | + + + | Home Phone | | + + + | Preferred Language | Unknown | + + + | Marital Status | Single | + + + | Restorationism Affiliation | Unknown | + + + | Race | White | + + + | Ethnic Group | Other Race | + + + Author + + + | Author | [facility] | + + + | Organization | [facility] | + + + | Address | Unknown | + + + | Phone | Unavailable | + + + Care Team Providers + +------+ + | Care Careers Adviser Name | Role | Phone | + [...] [place] | | | | | | [address] | | | | | | [phone] | | | +--------+ + + + [...]
--- OUTSIDE RECORDS SUMMARY | ~2019-08-25 | XMS | Encounter Summary ---
Demographics + + + | Address | [address] | | | [place] [address] | + + + | Home Phone | | + + + | Preferred Language | Unknown | + + + | Marital Status | Single | + + + | Church Affiliation | Unknown | + + + | Race | Unknown | + + + | Ethnic Group | Unknown | + + + Author + + + | Author | [facility] | | | and Swapnilana | + + + | Organization | [facility] | | | and Swapnilana | + + + | Address | Unknown | + + + | Phone | Unavailable | + + + Support + + + + + | Name | Relationship | Address | Phone | + + + + + | Octavio Archer | ECON | [place] | | | | | [address] | | + + + + + Care Team Providers + +------+ + | Care Refinery Operator Polymerization Plant Name | Role | Phone | + +------+ + | Adan Welch NP | PCP | | + +------+ + Reason for Referral Evaluate & Treat (Routine) +--------+ + + + + + | Status | Reason | Specialty | Diagnoses / | Referred By | Referred To | | | | | Procedures | Contact | Contact | +--------+ + + + + + | Closed | Specialty | Orthopedic | Diagnoses | Wong | | | | Services | Surgery | Tear of | Luis M Crowell MD | [place], | | | Required | | right | [address] | MD Yossi | | | | | acetabular | [address] | [address] | | | | | labrum, | [place], | [address] | | | | | initial | [place] [address] | [place] | | | | | encounter | Phone: | [address] | | | | | Right hip | [phone] | Phone: | | | | | pain Right | Fax: | [phone] | | | | | leg weakness | [phone] | Fax: | | | | | | | [phone] | +--------+ + + + + + Encounter Details +--------+ + + + + | Date | Type | Department | Care Team | Description | +--------+ + + + + | 04/11/ | Orders Only | [facility] [place] | Luis M Back, | Tear of right | | 2018 | | PHYSIATRY [address] | [address] | acetabular labrum, | | | | [place], | [place], [place] | initial encounter | | | | [place] [address] | [address] | (Primary Dx); Right | | | | [phone] | | hip pain; Right leg | | | | | | weakness | +--------+ + + + + Social [...] [address] | | | | | | [address] | | | | | | [place] [address] | | | | | | [phone] | | | | | | | | +--------+---------+ + + + | 12/06/ | Office | Neurology | Kashmir Matthew MD | | 2019 | Visit | | [address] | | | | | | [place], [place] | | | | | | [address] | | | | | | | | +--------+---------+ + + + + + +--------+ + + | Name | Type | Priori | Associated Diagnoses | Order Schedule | | | | ty | | | + + +--------+ + + | Orthopedic Surgery, | Outpatient | Routin | Tear of right | Ordered: 04/11/2019 | | External - AMB | Referral | e | acetabular labrum, | | | Referral | | | initial encounter | | | | | | Right hip pain | | | | | | Right leg weakness | | + + +--------+ + + documented as of this encounter Visit Diagnoses + + | Diagnosis | + + | Tear of right acetabular labrum, initial encounter - Primary | + + | Right hip pain Pain in joint, pelvic region and thigh | + + | Right leg weakness Other musculoskeletal symptoms referable to limbs | + + documented in this encounter"
--- OUTSIDE RECORDS SUMMARY | ~2019-08-25 | XMS | Encounter Summary ---
Demographics + + + | Address | [address] | | | [place] [address] | + + + | Home Phone [...] | Author | [facility] | | | and Swapnilana | + + + | Organization | [facility] | | | and Swapnilana | + + + | Address | Unknown | + + + | Phone | Unavailable | + + + Support + + + + + | Name | Relationship | Address | Phone | + + + + + | Octavio Archer | ECON | [place] | | | | | [address] | | + + + + + Care Team Providers + +------+ + | Care Safety Instructor Name | Role | Phone | + [...] | | [place] | [place] [address] | Results (See MRI | | | | [address] | [phone] | results of 08/01 and | | | | [phone] | | let patient know if | [...] | | | | | [place] [address] | | | | | | [phone] | | | | | | | | +--------+---------+ + + + | 12/06/ | Office | Neurology | Kashmir Matthew MD | | | 2019 | Visit | | [address] | | | | | | [place] | | | | | | [address] | | | | | | | | +--------+---------+ + + + documented as of this encounter Visit Diagnoses Not on filedocumented in this encounter"
--- OUTSIDE RECORDS SUMMARY | ~2019-08-25 | XMS | Encounter Summary ---
Demographics + + + | Address | [address] | | | [place] [address] | + + + | Home Phone | | + + + | Preferred Language | Unknown | + + + | Marital Status | Single | + + + | Oriental Orthodox Affiliation | Unknown | + + + | Race | Unknown | + + + | Ethnic Group | Unknown | + + + Author + + + | Author | [facility] | | | and Swapnilana | + + + | Organization | [facility] | | | and Swapnilana | + + + | Address | Unknown | + + + | Phone | Unavailable | + + + Support + + + + + | Name | Relationship | Address | Phone | + + + + + | Octavio Archer | ECON | [place] | | | | | [address] | | + + + + + Care Team Providers + +------+ + | Care Slipman Name | Role | Phone | + +------+ + | Adan Welch NP | PCP | | + +------+ + Reason for Visit +--------+ + | Reason | Comments | +--------+ + | Other | | +--------+ + Encounter Details +--------+ + + + + | Date | Type | Department | Care Team | Description | +--------+ + + + + | 03/31/ | Telephone | [facility] [place] | Luis M Back, | Other | | 2018 | | PHYSIATRY [address] | MD [address] | | | | | [place], | [place], [place] | | | | | [place] [address] | [address] | | | | | [phone] | | | +--------+ + + + [...] | | | | | [place] [address] | | | | | | [phone] | | | | | | | [...]
--- OUTSIDE RECORDS SUMMARY | ~2019-08-25 | XMS | Encounter Summary ---
Demographics + + + | Address | [address] | | | [place] [address] | + + + | Home Phone | | + + + | Preferred Language | Unknown | + + + | Marital Status | Single | + + + | Synagogue Affiliation | Unknown | + + + | Race | Unknown | + + + | Ethnic Group | Unknown | + + + Author + + + | Author | [facility] | | | and Swapnilana | + + + | Organization | [facility] | | | and Swapnilana | + + + | Address | Unknown | + + + | Phone | Unavailable | + + + Support + + + + + | Name | Relationship | Address | Phone | + + + + + | Octavio Archer | ECON | [place] | | | | | [address] | | + + + + + Care Team Providers + +------+ + | Care Physician Office Rep Name | Role | Phone | + +------+ + PCP | Unavailable | + +------+ + Encounter Details +--------+ + + + + | Date | Type | Department | Care Team | Description | +--------+ + + + + | 08/28/ | Hospital | [facility] | Minh Coronel MD | | | 1997 - | Encounter | SYSTEM GENERIC IP | | | | | | CONVERSION [address] | | | | 09/01/ | | [address] [place], [place] | | | | 1997 | | [address] | | | | | | [phone] | | | +--------+ + + + [...] | | | | | [place] [address] | | | | | | [phone] | | | | | | | | +--------+---------+ + + + | 12/06/ | Office | Neurology | Kashmir Matthew MD | | | 2020 | Visit | | [address] | | | | | | [place] | | | | | | [phone] | | | | | | | | +--------+---------+ + + + documented as of this encounter Visit Diagnoses Not on filedocumented in this encounter"
--- OUTSIDE RECORDS SUMMARY | ~2019-08-25 | XMS | Encounter Summary ---
Demographics + + + | Address | [address] | | | [place] [address] | + + + | Home Phone | | + + + | Preferred Language | Unknown | + + + | Marital Status | Single | + + + | Gnosticism Affiliation | Unknown | + + + | Race | Unknown | + + + | Ethnic Group | Unknown | + + + Author + + + | Author | [facility] | | | and Swapnilana | + + + | Organization | [facility] | | | and Swapnilana | + + + | Address | Unknown | + + + | Phone | Unavailable | + + + Support + + + + + | Name | Relationship | Address | Phone | + + + + + | Octavio Archer | ECON | [place] | | | | | [address] | | + + + + + Care Team Providers + +------+ + | Care Irrigator Name | Role | Phone | + +------+ + PCP | Unavailable | + +------+ + Encounter Details +--------+ + + + + | Date | Type | Department | Care Team | Description | +--------+ + + + + | 10/09/ | Hospital | [facility] | Elida Ring | | | 2006 | Encounter | SYSTEM RADIOLOGY | [address] | | | | | [address]VERSION [address] | [place] [address] | | | | | [address] [place], [place] | [place], [place] | | | | | [address] | [address] | | | | | [phone] | [phone] | | | | | | | [...] | | | | | [place] [address] | | | | | | [phone] | | | | | | | | +--------+---------+ + + + | 12/06/ | Office | Neurology | Kashmir Matthew MD | | | 2020 | Visit | | [address] | | | | | | [place] | | | | | | [address] | | | | | | | | +--------+---------+ + + + documented as of this encounter Visit Diagnoses Not on filedocumented in this encounter"
--- OUTSIDE RECORDS SUMMARY | ~2019-08-25 | XMS | Encounter Summary ---
Demographics + + + | Address | [address] | | | [place] [address] | + + + | Home Phone | | + + + | Preferred Language | Unknown | + + + | Marital Status | Single | + + + | Caodaism Affiliation | Unknown | + + + | Race | Unknown | + + + | Ethnic Group | Unknown | + + + Author + + + | Author | [facility] | | | and Swapnilana | + + + | Organization | [facility] | | | and Swapnilana | + + + | Address | Unknown | + + + | Phone | Unavailable | + + + Support + + + + + | Name | Relationship | Address | Phone | + + + + + | Octavio Archer | ECON | [place] | | | | | [address] | | + + + + + Care Team Providers + +------+ + | Care Hematology Nurse Educator Name | Role | Phone | + [...] | | | [address]VERSION [address] | [place] [address] | | | | | [address] [place], [place] | [phone] | | | | | [address] | | | | | | [phone] | | | +--------+ + + + [...] | | | | | [place] [address] | | | | | | [phone] | | | | | | | | +--------+---------+ + + + | 12/06/ | Office | Neurology | Kashmir Matthew MD | | | 2020 | Visit | | [address] | | | | | | [place] | | | | | | [phone] | | | | | | | | +--------+---------+ + + + documented as of this encounter Visit Diagnoses Not on filedocumented in this encounter"
--- OUTSIDE RECORDS SUMMARY | ~2019-08-25 | XMS | Encounter Summary ---
Demographics + + + | Address | [address] | | | [place] [address] | + + + | Home Phone | | + + + | Preferred Language | Unknown | + + + | Marital Status | Single | + + + | Buddhist Affiliation | Unknown | + + + | Race | Unknown | + + + | Ethnic Group | Unknown | + + + Author + + + | Author | [facility] | | | and Swapnilana | + + + | Organization | [facility] | | | and Swapnilana | + + + | Address | Unknown | + + + | Phone | Unavailable | + + + Support + + + + + | Name | Relationship | Address | Phone | + + + + + | Octavio Archer | ECON | [place] | | | | | [address] | | + + + + + Care Team Providers + +------+ + | Care Advertising Account Representative Name | Role | Phone | + +------+ + PCP | Unavailable | + +------+ + Encounter Details +--------+ + + + + | Date | Type | Department | Care Team | Description | +--------+ + + + + | 07/18/ | Hospital | [facility] | Minh Grossman P, | | | 2006 | Encounter | SYSTEM EMR | DO [address] | | | | | CONVERSION [address] | [place] [address] | | | | | [address] [place], [place] | [phone] | | | | | [address] | | | | | | [phone] | | | +--------+ + + + [...] | | | | | [address] | | | | | | [place] [address] | | | | | | [phone] | | | | | | | | +--------+---------+ + + + | 12/06/ | Office | Neurology | Kashmir Matthew MD | | | 2020 | Visit | | [address] | | | | | | [place] | | | | | | [phone] | | | | | | | | +--------+---------+ + + + documented as of this encounter Visit Diagnoses Not on filedocumented in this encounter"
--- OUTSIDE RECORDS SUMMARY | ~2019-08-25 | XMS | Encounter Summary ---
Demographics + + + | Address | [address] | | | [place] [address] | + + + | Home Phone | | + + + | Preferred Language | Unknown | + + + | Marital Status | Single | + + + | Christian Affiliation | Unknown | + + + | Race | Unknown | + + + | Ethnic Group | Unknown | + + + Author + + + | Author | [facility] | | | and Swapnilana | + + + | Organization | [facility] | | | and Swapnilana | + + + | Address | Unknown | + + + | Phone | Unavailable | + + + Support + + + + + | Name | Relationship | Address | Phone | + + + + + | Octavio Archer | ECON | [place] | | | | | [address] | | + + + + + Care Team Providers + +------+ + | Care Customer Operations Intern Name | Role | Phone | + +------+ + | Adan Welch NP | PCP | | + +------+ + Encounter Details +--------+ + + + + | Date | Type | Department | Care Team | Description | +--------+ + + + + | 03/23/ | Hospital | [facility] | Luis M Back, | Right hip pain | | 2019 | Encounter | MED CTR XRAY [address] | MD [address] | | | | | [place] | [place], [place] | | | | | [place] [address] | [address] | | | | | [phone] | | | | | | | Rad, [facility] | | +--------+ + + + + [...] | | | | | | [address] [place] | | | | | | [place] [address] | | | | | | [phone] | | | | | | | | +--------+---------+ + + + | 12/06/ | Office | Neurology | Kashmir Matthew MD | | | 2019 | Visit | | [address] | | | | | | [place] | | | | | | [address] | | | | | | | | +--------+---------+ + + + documented as of this encounter Procedures + +--------+ + + + | Procedure Name | Priori | Date/Time | Associated Diagnosis | Comments | | | ty | | | | + +--------+ + + + | FL HIP INJECTION | Routin | 03/23/2019 | Right hip pain | Results for this | | RIGHT FOR MRI OR CT | e | 8:21 AM | | procedure are in the | | | | PDT | | results section. | + +--------+ + + + documented in this encounter Results FL Hip Injection Right for MRI or [...] followed by a 1 cc injection of [id number] | | confirmed intra-articular positioning of the [...] thigh | + + documented in this encounter Administered Medications + +--------+ + +------+------+ | Medication Order | MAR | Action | Dose | Rate | Site | | | Action | Date | | | | + +--------+ + +------+------+ | gadobutrol (GADAVIST) injection | Given | 03/23/20 | 0.05 mLs | | | | 0.05 mL 0.05 mL, | | 19 8:04 | | | | | Intra-articular, ONCE PRN, Other, | | AM PDT | | | | | Starting 03/23/19 at 0801, For | | | | | | | 1 dose, MRI | | | | | | + +--------+ + +------+------+ +---+---+ | | | +---+---+ + +-------+ +-------+---+---+ | iohexol (OMNIPAQUE 300) 300 | Given | 03/23/20 | 5 mLs | | | | mg/mL injection 5 mL 5 mL, | | 19 8:30 | | | | | Intra-articular, ONCE, Thu03/23/19 | | AM PDT | | | | | at 0830, For 1 dose, Radiology | | | | | | + +-------+ +-------+---+---+ +---+---+ | | | +---+---+ + +-------+ +-------+---+ + | lidocaine 1% injection 5 mL 5 | Given | 03/23/20 | 5 mLs | | Other | | mL, Intradermal, ONCE, Thu03/23/19 | | 19 8:30 | | | (Comment | | at 0830, For 1 dose | | AM PDT | | | ) | + +-------+ +-------+---+ + +---+---+ | | | +---+---+ documented in this encounter"
--- OUTSIDE RECORDS SUMMARY | ~2019-08-25 | XMS | Clinical Summary ---
Demographics + + + | Address | [address] | | | [place] [address] | + + + | Home Phone | | + + + | Preferred Language | Unknown | + + + | Marital Status | Single | + + + | Roman Catholic Affiliation | Unknown | + + + | Race | White | + + + | Ethnic Group | Other Race | + + + Author + + + | Author | [facility] | + + + | Organization | [facility] | + + + | Address | Unknown | + + + | Phone | Unavailable | + + + Care Team Providers + +------+ + | Care Desk Attendant Name | Role | Phone | + +------+ + | Adan Welch NP | PCP | | + +------+ + Source Comments ROQUE is fully live on both [facility] and [facility] InPatient.[facility] Allergies Not on File Medications Not [...] | | | + +--------+ +--------+-------+---------+--------+ | REHABILITATION SPECIALIST MEDICAID | REHABILITATION SPECIALIST | xxxxxxxx | Effect | | | [...] | 1954 | [phone] | [place] [address] | | | bakari | | | 8 (Home) | | + +--------+ +--------+ + +"
--- OUTSIDE RECORDS SUMMARY | ~2019-08-25 | XMS | Encounter Summary ---
Demographics + + + | Address | [address] | | | [place] [address] | + + + | Home Phone | | + + + | Preferred Language | Unknown | + + + | Marital Status | Single | + + + | Pentecostalism Affiliation | Unknown | + + + | Race | Unknown | + + + | Ethnic Group | Unknown | + + + Author + + + | Author | [facility] | | | and Swapnilana | + + + | Organization | [facility] | | | and Swapnilana | + + + | Address | Unknown | + + + | Phone | Unavailable | + + + Support + + + + + | Name | Relationship | Address | Phone | + + + + + | Octavio Archer | ECON | [place] | | | | | [address] | | + + + + + Care Team Providers + +------+ + | Care Training Personnel Supervisor Name | Role | Phone | [...] +--------+ + + + + + | Denied | Specialty | Neurosurgery | Diagnoses | [facility] | [facility] | | | Services | | Spinal | Jaime E, | Neurosurgery | | | Required | | stenosis of | MD [address] | | | | | lumbar | [address] | [address] | | | | | region, | [address] | [address] | | | | | unspecified | [place], | [place], [place] | | | | | whether | [place] [address] | [address] | | | | | neurogenic | Phone: | Phone: | | | | | claudication | [phone] | [phone] | | | | | present | Fax: | Fax: | | | | | | [phone] | [phone] | +--------+ + + + + + Evaluate & Treat (Routine) + + + + + + + | Status | Reason | Specialty | Diagnoses / | Referred By | Referred To | | | | | Procedures | Contact | Contact | + + + + + + + | Authorized | Specialty | Infectious | Diagnoses | Kaci Jerez | | | Services | Diseases | Spinal | Jaime E, | Infectious | | | Required | | stenosis of | MD [address] | [address] | | | | | lumbar | [address] | [address] | | | | | region, | [address] | [place], [place] | | | | | unspecified | [place], | [address] | | | | | whether | [place] [address] | Phone: | | | | | neurogenic | Phone: | [phone] | | | | | claudication | [phone] | Fax: | | | | | present | Fax: | [phone] | | | | | Procedures | [phone] | | | | | | PENDING MRI | | | | | | | RESULTS | | | + + + + + + + Diagnostic/Screening (Urgent) + +--------+ + + + + | Status | Reason | Specialty | Diagnoses / | Referred By | Referred To | | | | | Procedures | Contact | Contact | + +--------+ + + + + | Authorized | | MRI | Diagnoses | [facility] | [facility] | | | | | Spinal | Jaime Oleary, | [facility] | | | | | stenosis of | MD [address] | | | | | lumbar | [address] | [address] | | | | | region, | [address] | [place], [place] | | | | | unspecified | [place], | [address] | | | | | whether | [place] [address] | Phone: | | | | | neurogenic | Phone: | [phone] | | | | | claudication | [phone] | Fax: | | | | | present | Fax: | [phone] | | | | | Procedures | [phone] | | | | | | MRI Lumbar | | | | | | | Spine w wo | | | | | | | Contrast | | | + +--------+ + + + + Reason for Visit + + + | Reason | Comments | + + + | New Patient | Back Pain | + + + Evaluate & Treat (Routine) + +--------+ + + + + | Status | Reason | Specialty | Diagnoses / | Referred By | Referred To | | | | | Procedures | Contact | Contact | + +--------+ + + + + | Authorized | | Neurosurgery | Diagnoses | Raimundo, | [facility] | | | | | Other | EVA Gomez | Neurosurgery | | | | | intervertebr | [address] | [address] | | | | | al disc | [address] | [address] | | | | | degeneration | [place], | [place], | | | | | , lumbar | [place] | [place] [address] | | | | | region | [address] | Phone: | | | | | | Phone: | [phone] | | | | | | [phone] | Fax: | | | | | | Fax: | [phone] | | | | | | [phone] | | + +--------+ + + + + Encounter Details +--------+---------+ + + + | Date | Type | Department | Care Team | Description | +--------+---------+ + + + | 08/11/ | Office | [facility] [place] | Jaime Jerez | Spinal stenosis of | | 2019 | Visit | NEUROSURGERY [address] | EMD [address] | lumbar region, | | | | [address] | [address] [place] | unspecified whether | | | | [place], [place] | [place] [address] | neurogenic | | | | [address] | [phone] | claudication present | | | | [phone] | | (Primary Dx) | +--------+---------+ + + + Social History [...] + + + | Blood Pressure | 118/62 | 08/11/2019 7:52 AM | | | | | PST | | + + + + + | Pulse | 80 | 08/11/2019 7:52 AM | | | | | PST | | + + + + + | Temperature | - | - | | + + + + + | Respiratory Rate | - | - | | + + + + + | Oxygen Saturation | 94% | 08/11/2019 7:52 AM | | | | | PST | | + + + + + | Inhaled Oxygen | - | - | | | Concentration | | | | + + + + + | Weight | - | - | | + + + + + | Height | 162.6 cm (5' 4") | 08/11/2019 7:52 AM | | | | | PST | | + + + + + | Body Mass Index | - | - | | + + + + + documented in this encounter Patient Instructions Patient Instructions Angeles Segura Cert MA - 08/11/2019 8:00 AM PST - We will order a 2 labs for you to complete today. - platen builder up your steroid at the pharmacy and start taking it as prescribed. - We will order an MRI for you to be done at [facility]. Once completed we will see you ba esdras to discuss results. - We will enter a referral for Neurosurgery to [facility] and put a referral in for infectious disease doctor. Let pain be your guide. If you are doing an activity that starts causing you pain, back of f and ease back into it slowly. We don't want you taking any risks that do not need to be t aken. documented in this encounter Progress Notes Jaime Jerez MD - 08/11/2019 8:00 AM PST Jaime Jerez MD [address] [place] [address], [address] [place] [address] PHONE: FAX: NEUROSURGERY HISTORY AND PHYSICAL EXAMINATION CHIEF COMPLAINT: Chief Complaint Patient presents with New Patient Back Pain HISTORY OF PRESENT ILLNESS: The patient is a 64 y.o. female with the complaint of back oxana n that began September of 2018. She states she did have a fall summer 2017 that may triggered the pain. She describes that she tripped over a hose and fell landing on her right leg. The back symptoms have been rapidly worsening. She states that the pain is not any more se amanda now than it was a couple of weeks ago. A Medrol Dosepak helped a lot with the pain. S he stopped taking a Medrol Dosepak about a week or so ago she did have lab work done on 1223 which will be reviewed below. She rates the back pain as severe. The back symptoms are co ntinuous. She describes the back pain as sharp, numbing, tingling, shooting and throbbing. She states her pain is located in the lumbar sacral into buttocks and bilateral sacral thig hs. The pain does not go below the knees. She has been having to crawl around on her hands a nd knees her house for past 3 months. Does not alleviate her pain. Her symptoms improve with nothing and worsens with standing, sitting, walking, running, kne eling, bending and twisting. She does not report any change in bowel or bladder function recently. No motor or sensory symptoms. She has tried Physical Therapy, Massage, NSAIDS, Steroids, Injections and Muscle relaxer's. She completed a Medrol Doespack about 10 days ago which did help her. She hasn't had any re cent injections. She is currently taking buprenorphine 8 mg for extreme pain and it barely takes the pain away. She has depression but states it is under control. She is retired. Denies any fevers. PAST MEDICAL HISTORY: Past Medical History: Diagnosis Date Actinic keratosis Alcohol abuse, in remission Anxiety Anxiety with depression Bronchitis Carpal tunnel syndrome Chronic pain Chronic pain disorder DDD (degenerative disc disease), lumbar Depression Genital herpes GERD (gastroesophageal reflux disease) Herpes History of positive PPD Insomnia Lumbar back pain with radiculopathy affecting left lower extremity Onychomycosis Other chronic pain Other intervertebral disc degeneration, lumbar region Pain in finger of left hand Polymyalgia (HCC) Positive TB test Primary osteoarthritis, right ankle and foot Right hip pain Seborrheic keratosis Spinal stenosis, lumbar region with neurogenic claudication Spondylolisthesis of lumbar region Spondylosis, lumbar, with myelopathy Status migrainosus PAST SURGICAL HISTORY: Past Surgical History: Procedure Laterality Date CARPAL TUNNEL RELEASE Bilateral 1998 CURRENT MEDICATIONS: Current Outpatient Medications Medication Sig Dispense Refill acyclovir (ZOVIRAX) 200 mg capsule Take 2 capsules by mouth tid for flareups of herpes buprenorphine (SUBUTEX) [address] 8 mg under the tongue Daily. 3 citalopram (CELEXA) 40 mg tablet Take 40 mg by mouth Daily. cyclobenzaprine (FLEXERIL) 10 mg tablet Take 10 mg by mouth Twice daily as needed for Muscle spasms. fluticasone (FLONASE) 50 mcg/nasal spray 1 spray by Nasal route Daily. gabapentin (NEURONTIN) 300 mg capsule Take 300 mg by mouth 3 times daily. lamoTRIgine (LAMICTAL) 150 MG tablet Take 600 mg by mouth nightly. methylPREDNISolone (MEDROL, RITO,) 4 mg tablet Follow package directions. 21 tablet 0 naproxen (NAPROSYN) 500 mg tablet omeprazole (PRILOSEC) 20 mg TBEC Take 20 mg by mouth Daily. No current facility-administered medications for this visit. ALLERGIES: No Known Allergies SOCIAL HISTORY: The patient reports that she has been smoking e-cigarettes. She has never used smokeless t obacco. She reports current alcohol use. She reports current drug use. Drug: Marijuana. FAMILY HISTORY: Family History Problem Relation Age of Onset Drug abuse Mother Alcohol abuse Mother Mental illness Mother COPD Mother Drug abuse Father Alcohol abuse Father Cancer Father No known problems Maternal Grandmother No known problems Maternal Grandfather No known problems Paternal Grandmother No known problems Paternal Grandfather Alcohol abuse Sister Drug abuse Sister Review of Systems Constitutional: Positive for malaise/fatigue. HENT: Positive for congestion. Eyes: Negative. Respiratory: Negative. Cardiovascular: Negative. Gastrointestinal: Positive for heartburn. Genitourinary: Negative. Musculoskeletal: Positive for back pain, joint pain and myalgias. Skin: Negative. Neurological: Positive for tingling, tremors (right hand), sensory change (bilateral legs) and weakness (legs). Endo/Heme/Allergies: Positive for environmental allergies. Psychiatric/Behavioral: Positive for depression. The patient is nervous/anxious and has ins omnia. All other systems reviewed and are negative. PHYSICAL EXAMINATION: Blood pressure 118/62, pulse 80, height 1.626 m (5' 4"), SpO2 94 %. Body mass index is 18.8 8 kg/m. GENERAL: Josey Segundo appears to be very uncomfortable today she is writhing around about the exam table. She does not appear to have a fever. Any sort of physical maneuver w ith her legs makes her pain worse even "nonphysiologic" maneuvers. ABDOMEN: The patient is not obese. EXTREMITIES: No cyanosis, clubbing, or edema. Distal pulses are normal. NEUROLOGICAL EXAM: MENTAL STATUS: She is awake, alert, and oriented. She follows simple and complex commands. Her speech is fluent, she comprehends speech well, and she repeats well. She has no apparent deficits with short or mcc memory. MOTOR EXAM: (5 IS NORMAL) * Indicates pain limited MUSCLE/ MOVEMENT: RIGHT LEFT Hip Flexion 5 5 Hip Extension 5 5 Knee Flexion 5 5 Knee Extension 5 5 Dorsiflexion 5 5 Extensor Hallicus Longus 5 5 Plantarflexion 5 5 SENSORY EXAM: Sensory exam shows no diminished sensation to light touch or pain throughout the lower extr emities. REFLEXES: (2 OR 2+ IS NORMAL) REFLEX: RIGHT LEFT PATELLAR 2 2 ACHILLES 2 2 CLONUS ABSENT ABSENT BABINSKI NEGATIVE NEGATIVE PLANTAR DOWNGOING DOWNGOING GAIT: She is not able to stand up and walk for the exam. PERIPHERAL NERVE/MISC: Straight leg raise is buttock and thigh pain only no radicular pain. Donaldo's test of the hips is pain in the buttocks bilaterally as well. TEST AND RADIOGRAPHIC REVIEW: Her imaging was reviewed in detail today during the visit. The MRI from 08/01/2019 shows s ignificant erosive degenerative or infectious changes at L4-5 there is also high signal hendrix ge in the vertebral bodies that does extend into the posterior elements a bit on STIR imagin g. Is a spondylolisthesis here as well and fairly severe some spinal stenosis there is a sm all spondylolisthesis at L3-4 with more moderate stenosis at that level. Changes distant wi th either very severe degenerative changes or possibly infection. Lumbar x-rays from 10/04/2018 shows show the L4-5 spondylolisthesis with some joint space n arrowing at L4-5. Given the dramatic difference between the MRI and the x-rays I think that that discitis or osteomyelitis is still in the differential here. high-sensitivity C-reactive protein done on 08/08 was upper limit of normal at 3.0 note sandeep t she had been off steroids for only a few days however. Blood cell count was normal I do n ot think is an ESR was done ASSESSMENT: Spinal stenosis at L4-5 obviously the severe pain that this lady has constantly is not consistent with spinal stenosis pain I think her pain is probably either due to the very severe erosive degenerative or possibly even infectious changes at L4-5 I told her that we really need to be very diligent with ruling out infection here before proceeding. GENERAL DIAGNOSES: Past Medical History: Diagnosis Date Actinic keratosis Alcohol abuse, in remission Anxiety Anxiety with depression Bronchitis Carpal tunnel syndrome Chronic pain Chronic pain disorder DDD (degenerative disc disease), lumbar Depression Genital herpes GERD (gastroesophageal reflux disease) Herpes History of positive PPD Insomnia Lumbar back pain with radiculopathy affecting left lower extremity Onychomycosis Other chronic pain Other intervertebral disc degeneration, lumbar region Pain in finger of left hand Polymyalgia (HCC) Positive TB test Primary osteoarthritis, right ankle and foot Right hip pain Seborrheic keratosis Spinal stenosis, lumbar region with neurogenic claudication Spondylolisthesis of lumbar region Spondylosis, lumbar, with myelopathy Status migrainosus PLAN: For step we will have her get a C-reactive protein and sedimentation rate today since she h as been off the steroids for about 10 days now. I would also like her to have a lumbar MRI without and with gadolinium as soon as possible and then we can discuss results with her by phone or here in the office. I think this lady probably also needs to be referred to [facility] for an infectious disease evaluation and possibly a vertebral body biopsy or do space a spirate as well. I would like for her to have a lumbar MRI with/without contrast and return to discuss resul ts with me. I would also like for her to have an ESR and C-Reactive Protein lab today before she leaves which she will do. We will also refer her to Neurosurgery and Infectious disease doctor to rule out osteomyelitis infection. Her sedimentation rate and C-reactive protein were both normal. We will still proceed to g et the enhanced lumbar MRI. I, Jaime Jerez MD, personally performed the services described in this documentati on, as scribed by MAR[place] Baeza in my presence, and it is both accurate and complet e. Jaime Jerez MD 08/11/19 ELECTRONICALLY SIGNED BY: Jaime Jerez MD, 08/11/2019 8:56 AM documented in thi s encounter Plan of Treatment +--------+---------+ + + + | Date | Type | Specialty | Care Team | Description | +--------+---------+ + + + | 09/06/ | Office | Neurosurgery | Wiley Maldonado | | | 2019 | Visit | | MD Cheryl [address] | | | | | | [address] [place] | | | | | | [place] [address] | | | | | | [phone] | | | | | | | | +--------+---------+ + + + | 12/06/ | Office | Neurology | Kashmir Matthew MD | | 2019 | Visit | | [address] | | | | | | [place] | | | | | | [address] | | | | | | | | +--------+---------+ + + + + +---------+--------+ + + | Name | Type | Priori | Associated Diagnoses | Order Schedule | | | | ty | | | + +---------+--------+ + + | MRI Lumbar Spine w | Imaging | Routin | Spinal stenosis of | Expected: | | wo Contrast | | e | lumbar region, | 08/11/2019, Expires: | | | | | unspecified whether | 08/11/2020 | | | | | neurogenic | | | | | | claudication present | | + +---------+--------+ + + + + +--------+ + + | Name | Type | Priori | Associated Diagnoses | Order Schedule | | | | ty | | | + + +--------+ + + | Infectious Disease, | Outpatient | Routin | Spinal stenosis of | Ordered: 08/11/2019 | | External - AMB | Referral | e | lumbar region, | | | Referral | | | unspecified whether | | | | | | neurogenic | | | | | | claudication present | | + + +--------+ + + | Neurosurgery, | Outpatient | Routin | Spinal stenosis of | Ordered: 08/11/2019 | | External - AMB | Referral | e | lumbar region, | | | Referral | | | unspecified whether | | | | | | neurogenic | | | | | | claudication present | | + + +--------+ + + documented as of this encounter Procedures + +--------+ + + + | Procedure Name | Priori | Date/Time | Associated Diagnosis | Comments | | | ty | | | | + +--------+ + + + | LABS - EXTERNAL SCAN | | 2019 | | Results for this | | | | 12:00 AM | | procedure are in the | | | | PST | | results section. | + +--------+ + + + documented in this encounter Results C-Reactive Protein (08/11/2019 9:10 AM PST) + +-------+ + + + | Component | Value | Ref Range | Performed | Pathologist | | | | | At | Signature | + +-------+ + + + | CRP | <4.00 | <10.00 mg/L | [facility] | | | | [facility] | | [facility] | | | | [facility] - | | | | | | [facility]ATORY | | + +-------+ + + + + + | Specimen | + + | Blood | + + + + + + + | Performing | Address | City/State/Zipcode | Phone Number | | Organization | | | | + + + + + | [facility] | [address] | [place] | [phone] | | [facility] | | [address] | | | - LABORATORY | | | | + + + + + Sedimentation Rate (08/11/2019 9:10 AM PST) + +-------+ + + + | Component | Value | Ref Range | Performed | Pathologist | | | | | At | Signature | + +-------+ + + + | ESR | 5 | <30 mm/hr | [facility] | | | | | | [facility] | | | | | | MEDICAL | | | | | | C[facility] - | | | | | | LABORATORY | | + +-------+ + + + + + | Specimen | + + | Blood | + + + + + + + | Performing | Address | City/State/Zipcode | Phone Number | | Organization | | | | + + + + + | [facility] | [address] | [place] | [phone] | | [facility] | | [address] | | | - LABORATORY | | | | + + + + + LABS - EXTERNAL SCAN (2019 12:00 AM PST) + + + | Narrative | Performed At | + + + | Ordered by an | | | unspecified provider. | | + + + documented in this encounter Visit Diagnoses + + | Diagnosis | + + | Spinal stenosis of lumbar region, unspecified whether neurogenic claudication present | | - Primary | + + documented in this encounter
--- OUTSIDE RECORDS SUMMARY | ~2019-08-25 | XMS | Encounter Summary ---
Demographics + + + | Address | [address] | | | [place] [address] | + + + | Home Phone [...] Author + + + | Author | [facility] | + + + | Organization | [facility] | + + + | Address | Unknown | + + + | Phone | Unavailable | + + + Care Team Providers + +------+ + | Care Supervisor Wet End Name | Role | Phone | + +------+ + | Adan Weclh NP | PCP | | + +------+ [...] [place] | | | | | | [address] | | | | | | [phone] | | | +--------+ + + + [...]
--- OUTSIDE RECORDS SUMMARY | ~2019-08-25 | XMS | Encounter Summary ---
Demographics + + + | Address | [address] | | | [place] [address] | + + + | Home Phone | | + + + | Preferred Language | Unknown | + + + | Marital Status | Single | + + + | Yarsanism Affiliation | Unknown | + + + | Race | Unknown | + + + | Ethnic Group | Unknown | + + + Author + + + | Author | [facility] | | | and Swapnilana | + + + | Organization | [facility] | | | and Swapnilana | + + + | Address | Unknown | + + + | Phone | Unavailable | + + + Support + + + + + | Name | Relationship | Address | Phone | + + + + + | Octavio Archer | ECON | [place] | | | | | [address] | | + + + + + Care Team Providers + +------+ + | Care Guide Delegate Name | Role | Phone | + +------+ + PCP | Unavailable | + +------+ + Encounter Details +--------+ + + + + | Date | Type | Department | Care Team | Description | +--------+ + + + + | 07/18/ | Hospital | [facility] | Minh Grossman P, | | | 2006 | Encounter | SYSTEM EMR | DO [address] | | | | | CONVERSION [address] | [place] [address] | | | | | [address] [place], [place] | [phone] | | | | | [address] | | | | | | [phone] | | | +--------+ + + + [...] | | | | | [place] [address] | | | | | | [phone] | | | | | | | | +--------+---------+ + + + | 12/06/ | Office | Neurology | Kashmir Matthew MD | | | 2020 | Visit | | [address] | | | | | | [place] | | | | | | [id number] | | | | | | | | +--------+---------+ + + + documented as of this encounter Visit Diagnoses Not on filedocumented in this encounter"
--- OUTSIDE RECORDS SUMMARY | ~2019-08-25 | XMS | Encounter Summary ---
Demographics + + + | Address | [address] | | | [place] [address] | + + + | Home Phone | | + + + | Preferred Language | Unknown | + + + | Marital Status | Single | + + + | Voodoo Affiliation | Unknown | + + + | Race | Unknown | + + + | Ethnic Group | Unknown | + + + Author + + + | Author | [facility] | | | and Swapnilana | + + + | Organization | [facility] | | | and Swapnilana | + + + | Address | Unknown | + + + | Phone | Unavailable | + + + Support + + + + + | Name | Relationship | Address | Phone | + + + + + | Octavio Archer | ECON | [place] | | | | | [address] | | + + + + + Care Team Providers + +------+ + | Care Countersinker Name | Role | Phone | + +------+ + | Divya Eubanks | PCP | | + +------+ + Reason for Visit + + + | Reason | Comments | + + + | Lab Results | | + + + Encounter Details +--------+ + + + + | Date | Type | Department | Care Team | Description | +--------+ + + + + | 08/11/ | Telephone | [facility] [place] | Jaime Jerez | Lab Results | | 2019 | | NEUROSURGERY [address] | [address], [address] | | | | [address] | [address] [place] | | | | | [place], [place] | [place] [address] | | | | | [address] | [phone] | | | | | [phone] | | | +--------+ + + + [...] Visit | | MD Cheryl [address] | | | | | | [address] [place] | | | | | | [place] [address] | | | | | | [phone] | | | | | | | | +--------+---------+ + + + | 12/06/ | Office | Neurology | Kashmir Matthew MD | | | 2020 | Visit | | [address] | | | | | | [place] | | | | | | [address] | | | | | | | | +--------+---------+ + + + documented as of this encounter Visit Diagnoses Not on filedocumented in this encounter"
--- OUTSIDE RECORDS SUMMARY | ~2019-08-25 | XMS | Encounter Summary ---
Demographics + + + | Address | [address] | | | [place] [address] | + + + | Home Phone | | + + + | Preferred Language | Unknown | + + + | Marital Status | Single | + + + | Pentecostal Affiliation | Unknown | + + + | Race | Unknown | + + + | Ethnic Group | Unknown | + + + Author + + + | Author | [facility] | | | and Swapnilana | + + + | Organization | [facility] | | | and Swapnilana | + + + | Address | Unknown | + + + | Phone | Unavailable | + + + Support + + + + + | Name | Relationship | Address | Phone | + + + + + | Octavio Archer | ECON | [place] | | | | | [address] | | + + + + + Care Team Providers + +------+ + | Care Flexographic Press Plate Setter Name | Role | Phone | + +------+ + PCP | Unavailable | + +------+ + Encounter Details +--------+ + + + + | Date | Type | Department | Care Team | Description | +--------+ + + + + | 10/09/ | Hospital | [facility] | Elida Ring | | | 2006 | Encounter | SYSTEM RADIOLOGY | MD [address] | | | | | [address] | [place] [address] | | | | | [address] [place], [place] | [place], [place] | | | | | [address] | [address] | | | | | [phone] | [phone] | | | | | | | [...] | | | | | [place] [address] | | | | | | [phone] | | | | | | | | +--------+---------+ + + + | 12/06/ | Office | Neurology | Kashmir Matthew MD | | | 2020 | Visit | | [address] | | | | | | [place] | | | | | | [address] | | | | | | | | +--------+---------+ + + + documented as of this encounter Visit Diagnoses Not on filedocumented in this encounter"
--- OUTSIDE RECORDS SUMMARY | ~2019-08-25 | XMS | Encounter Summary ---
Demographics + + + | Address | [address] | | | [place] [address] | + + + | Home Phone | | + + + | Preferred Language | Unknown | + + + | Marital Status | Single | + + + | Scientology Affiliation | Unknown | + + + | Race | Unknown | + + + | Ethnic Group | Unknown | + + + Author + + + | Author | [facility] | | | and Swapnilana | + + + | Organization | [facility] [...] [place] | | | | | [address] | | + + + + + Care Team Providers + +------+ + | Care Vice President Underwriting Name | Role | Phone | + [...] | MED CTR EXTERNAL | MD [address] | | | | | IMAGING | [address] | | | | | [phone] | [place] [address] | | +--------+ + + + + [...] | | | | | [place] [address] | | | | | | [phone] | | | | | | | | +--------+---------+ + + + | 12/06/ | Office | Neurology | Kashmir Matthew MD | | 2019 | Visit | | [address] | | | | | | [place] | | | | | | [address] | | | | | | | [...]
--- OUTSIDE RECORDS SUMMARY | ~2019-08-25 | XMS | Encounter Summary ---
Demographics + + + | Address | [address] | | | [place] [address] | + + + | Home Phone [...] + + + | Author | [facility] | | | and Swapnilana | + + + | Organization | [facility] | | | and Swapnilana | + + + | Address | Unknown | + + + | Phone | Unavailable | + + + Support + + + + + | Name | Relationship | Address | Phone | + + + + + | Octavio Archer | ECON | [place] | | | | | [address] | | + + + + + Care Team Providers + +------+ + | Care Turkey Farmer Name | Role | Phone | + [...] | | [place] | [place] [address] | | | | | [address] | [phone] | | | | | [phone] | | | +--------+ + + + [...] | Neurosurgery | Wiley Maldonado | | 2019 | Visit | | MD Cheryl [address] | | | | | | [address] [place] | | | | | | [place] [address] | | | | | | [phone] | | | | | | | | +--------+---------+ + + + | 12/06/ | Office | Neurology | Kashmir Matthew MD | | 2019 | Visit | | [address] | | | | | | [place] | | | | | | [address] | | | | | | | | +--------+---------+ + + + documented as of this encounter Visit Diagnoses Not on filedocumented in this encounter"
--- OUTSIDE RECORDS SUMMARY | ~2019-08-25 | XMS | Encounter Summary ---
Demographics + + + | Address | [address] | | | [place] [address] | + + + | Home Phone | | + + + | Preferred Language | Unknown | + + + | Marital Status | Single | + + + | Yazdanism Affiliation | Unknown | + + + | Race | Unknown | + + + | Ethnic Group | Unknown | + + + Author + + + | Author | [facility] | | | and Swapnilana | + + + | Organization | [facility] | | | and Swapnilana | + + + | Address | Unknown | + + + | Phone | Unavailable | + + + Support + + + + + | Name | Relationship | Address | Phone | + + + + + | Octavio Archer | ECON | [place] | | | | | [address] | | + + + + + Care Team Providers + +------+ + | Care Slasher Hand Name | Role | Phone | + [...] [address] | | | | | [place] [address] | [place] [address] | | | | | [phone] | | | +--------+ + + + [...] | | | | | [place] [address] | | | | | | [phone] | | | | | | | | +--------+---------+ + + + | 12/06/ | Office | Neurology | Kashmir Matthew MD | | 2019 | Visit | | [address] | | | | | | [place] | | | | | | [address] | | | | | | | | +--------+---------+ + + + documented as of this encounter Visit Diagnoses Not on filedocumented in this encounter"
--- OUTSIDE RECORDS SUMMARY | ~2019-08-25 | XMS | Encounter Summary ---
Demographics + + + | Address | [address] | | | [place] [address] | + + + | Home Phone [...] + + + | Author | [facility] | | | and Swapnilana | + + + | Organization | [facility] | | | and Swapnilana | + + + | Address | Unknown | + + + | Phone | Unavailable | + + + Support + + + + + | Name | Relationship | Address | Phone | + + + + + | Octavio Archer | ECON | [place] | | | | | [address] | | + + + + + Care Team Providers + +------+ + | Care Garment Inspector Name | Role | Phone | + +------+ + | Adan Welch NP | PCP | | + +------+ + Encounter Details +--------+ + + + + | Date | Type | Department | Care Team | Description | +--------+ + + + + | 03/23/ | Hospital | [facility] | Luis M Back, | Right hip pain | | 2019 | Encounter | MED CTR XRAY [address] | MD [address] | | | | | [place] | [place], [place] | | | | | [place] [address] | [address] | | | | | [phone] | | | | | | | [...] | | | | | | [place] [address] | | | | | | [phone] | | | | | | | | +--------+---------+ + + + | 12/06/ | Office | Neurology | Kashmir Matthew MD | | | 2019 | Visit | | [address] | | | | | | [place] | | | | | | [address] | | | | | | | [...] followed by a 1 cc injection of [id number] | | confirmed intra-articular positioning of the [...]
--- OUTSIDE RECORDS SUMMARY | ~2019-08-25 | XMS | Encounter Summary ---
Demographics + + + | Address | [address] | | | [place] [address] | + + + | Home Phone | | + + + | Preferred Language | Unknown | + + + | Marital Status | Single | + + + | Episcopalian Affiliation | Unknown | + + + | Race | Unknown | + + + | Ethnic Group | Unknown | + + + Author + + + | Author | [facility] | | | and Swapnilana | + + + | Organization | [facility] | | | and Swapnilana | + + + | Address | Unknown | + + + | Phone | Unavailable | + + + Support + + + + + | Name | Relationship | Address | Phone | + + + + + | Octavio Archer | ECON | [place] | | | | | [address] | | + + + + + Care Team Providers + +------+ + | Care General Maintenance Technician Name | Role | Phone | [...] | MED CTR EXTERNAL | MD [address] | | | | | IMAGING | [place] [place] | | | | | [phone] | [place] [address] | | +--------+ + + + + [...] | | | | | | [place] [address] | | | | | | [phone] | | | | | | | | +--------+---------+ + + + | 12/06/ | Office | Neurology | Kashmir Matthew MD | | 2019 | Visit | | [address] | | | | | | [place] | | | | | | [address] | | | | | | | [...]
--- OUTSIDE RECORDS SUMMARY | ~2019-08-25 | XMS | Clinical Summary ---
Demographics + + + | Address | [address] | | | [place] [address] | + + + | Home Phone | | + + + | Preferred Language | Unknown | + + + | Marital Status | Single | + + + | Druze Affiliation | Unknown | + + + | Race | Unknown | + + + | Ethnic Group | Unknown | + + + Author + + + | Author | [facility] | | | and Swapnilana | + + + | Organization | [facility] | | | and Swapnilana | + + + | Address | Unknown | + + + | Phone | Unavailable | + + + Support + + + + + | Name | Relationship | Address | Phone | + + + + + | Octavio Archer | ECON | [place] | | | | | [address] | | + + + + + Care Team Providers + +------+ + | Care Rod Puller Name | Role | Phone | [...] + + + +---------+------+------+-------+ | naproxen | | | 0 | 10/ | | Activ | | (NAPROSYN) 500 mg | | | | / | | e | | tablet | | | | 19 | | | + + + +---------+------+------+-------+ | methylPREDNISolone | Follow package | 21 | 0 | 12/2 | | Activ | | (MEDROL, RITO,) 4 mg | directions. | tablet | | 02/03 | | e | | tabletIndications: | | | | 19 | | | | Spinal stenosis of | | | | | | | | lumbar region, | | | | | | | | unspecified whether | | | | | | | | neurogenic | | | | | | | | claudication present | | | | | | | + + + +---------+------+------+-------+ | naproxen | Take 250 mg by mouth | | 0 | | 12/ | Disco | | (NAPROSYN) 250 mg | 2 times daily. | | | | 6/20 | ntinu | | tablet | | | | | 19 | ed | | | | | | | | (Ther | | | | | | | | apy | | | | | | | | compl | | | | | | | | eted) | + + + +---------+------+------+-------+ | methylPREDNISolone | Take 4 mg by mouth | | 0 | | / | Disco | | (MEDROLRITO,) 4 mg | (see instruction). | | | | 02/03 | ntinu | | tablet | Follow package | | | | 19 | ed | | | directions. | | | | | (Ther | | | | | | | | apy | | | | | | | | compl | | | | | | | | eted) | + + + +---------+------+------+-------+ Active Problems + + + | Problem | Noted Date | + + + | Alcohol abuse, in remission | 03/03/2011 | + + + Encounters +--------+ + + + + | Date | Type | Specialty | Care Team | Description | +--------+ + + + + | 08/22/ | Telephone | Neurosurgery | Jaime Jerez | Symptom Management | | 2019 | | | MD Mamta | (Has new info and | | | | | | symptoms to review); | | | | | | Results (See MRI | | | | | | results of 08/01 and | | | | | | let patient know if | | | | | | anything else is | | | | | | needed. ) | +--------+ + + + + | 08/22/ | Telephone | Neurosurgery | Xavi Diamond DO | Referral | | 2019 | | | | | +--------+ + + + + | 08/11/ | Office | Neurosurgery | Jaime Jerez | Spinal stenosis of | | 2018 | Visit | | MD Mamta | lumbar region, | | | | | | unspecified whether | | | | | | neurogenic | | | | | | claudication present | | | | | | (Primary Dx) | +--------+ + + + + | 08/11/ | Telephone | Neurosurgery | Jaime Jerez | Lab Results | 2018 | | | MD Mamta | | +--------+ + + + + | 08/11/ | Telephone | Neurosurgery | Jaime Jerez | Results | | 2018 | | | MD Mamta | | +--------+ + + + + | 08/08/ | Documentati | Neurosurgery | Jaime Jerez | Pain Management | | 2018 | on | | MD Mamta | (intial encounter) | +--------+ + + + + | 08/05/ | Imaging | Radiology | Chase, | | | 2018 | Exam | | MD Emilio | | +--------+ + + + + | 08/05/ | Abstract | Neurosurgery | Jaime Jerez | | | 2018 | | | MD Mamta | | +--------+ + + + + | 07/06/ | Telephone | Physical Medicine | Luis M Back, | Results | 2018 | | and Rehabilitation | | | +--------+ + + + + | 05/26/ | Telephone | Physical Medicine | Manuel Vizcarra, | No Show | | 2018 | | and Rehabilitation | [facility] | | +--------+ + + + + [...] to Quit: No; Counseling Given: Yes | | Comments: vaping nicotine | + + [...] | | | | | [place] [address] | | | | | | [phone] | | | | | | | | +--------+---------+ + + + | 12/06/ | Office | Neurology | Kashmir Matthew MD | | | 2020 | Visit | | [address] | | | | | | [place] | | | | | | [address] | | | | | | | [...] | + +--------+ + + + | C-REACTIVE PROTEIN | Routin | 08/11/2019 | Spinal stenosis of | Results for this | | | e | 9:10 AM | lumbar region, | procedure are in the | | | | PST | unspecified whether | results section. | | | | | neurogenic | | | | | | claudication present | | + +--------+ + + + | SEDIMENTATION RATE | Routin | 08/11/2019 | Spinal stenosis of | Results for this | | | e | 9:10 AM | lumbar region, | procedure are in the | | | | PST | unspecified whether | results section. | | | | | neurogenic | | | | | | claudication present | | + +--------+ + + + | LABS - EXTERNAL SCAN | | 2019 | | Results for this | | | | 12:00 AM | | procedure are in the | | | | PST | | results section. | + +--------+ + + + | MRI LUMBAR SPINE WO | Routin | 08/01/2019 | | Results for this | | CONTRAST | e | 12:00 AM | | procedure are in the | | | | PST | | results section. | + +--------+ + + + from Last 3 Months Results Sedimentation Rate (08/11/2019 9:10 AM PST) + +-------+ + + + | Component | Value | Ref Range | Performed | Pathologist | | | | | At | Signature | + +-------+ + + + | ESR | 5 | <30 mm/hr | [facility] | | | | | | [facility] | | | | | | MEDICAL [...] ST. | [address] | [place] | [phone] | | [facility] | | [address] | | | - LABORATORY | | | | + + + + + C-Reactive Protein (08/11/2019 9:10 AM PST) + +-------+ + + + | Component | Value | Ref Range | Performed | Pathologist | | | | | At | Signature | + +-------+ + + + | CRP | <4.00 | <10.00 mg/L | [facility] | | | | | | [facility] | | | | | | [...] | + + + + + | [facility] | [address] | [place] | [phone] | | [facility] | | [address] | | | - LABORATORY | | | | + + + + + LABS - EXTERNAL SCAN (2019 12:00 AM PST) + + + | Narrative | Performed At | + + + | Ordered by an | | | unspecified provider. | | + + + MRI Lumbar Spine wo Contrast (08/01/2019 12:00 [...] | [employer] | [employer] | [id number] | | [phone] | | Medica | | MEDICAID HMO [...] | 1955 | [phone] | [place] [address] | | | [place] | | | 8 (Home) | | + +--------+ +--------+ + + Advance Directives + + + + + | Type | Date Recorded | Patient | Explanation | | | | General Practice | | + + + + + | Power of | | | | | Coil Taper | | | | + + + + + | Advance | | | | | Directive | | | | + + + + +
--- OUTSIDE RECORDS SUMMARY | ~2019-08-25 | XMS | Encounter Summary ---
Demographics + + + | Address | [address] | | | [place] [address] | + + + | Home Phone | | + + + | Preferred Language | Unknown | + + + | Marital Status | Single | + + + | Protestant Affiliation | Unknown | + + + | Race | Unknown | + + + | Ethnic Group | Unknown | + + + Author + + + | Author | [facility] | | | and Swapnilana | + + + | Organization | [facility] | | | and Swapnilana | + + + | Address | Unknown | + + + | Phone | Unavailable | + + + Support + + + + + | Name | Relationship | Address | Phone | + + + + + | Octavio Archer | ECON | [place] | | | | | [address] | | + + + + + Care Team Providers + +------+ + | Care Surgical Coordinator Name | Role | Phone | [...] [address] [place] | | | | | [place], [place] | [place] [address] | | | | | [address] | [phone] | | | | | [phone] | | | +--------+ + + + [...] | | | | | [place] [address] | | | | | | [phone] | | | | | | | | +--------+---------+ + + + | 12/06/ | Office | Neurology | Kashmir Matthew MD | | | 2020 | Visit | | [address] | | | | | | [place] | | | | | | [address] | | | | | | | | +--------+---------+ + + + documented as of this encounter Visit Diagnoses Not on filedocumented in this encounter"
--- OUTSIDE RECORDS SUMMARY | ~2019-08-25 | XMS | Encounter Summary ---
Demographics + + + | Address | [address] | | | [place] [address] | + + + | Home Phone | | + + + | Preferred Language | Unknown | + + + | Marital Status | Single | + + + | Anglican Affiliation | Unknown | + + + | Race | Unknown | + + + | Ethnic Group | Unknown | + + + Author + + + | Author | [facility] | | | and Swapnilana | + + + | Organization | [facility] | | | and Swapnilana | + + + | Address | Unknown | + + + | Phone | Unavailable | + + + Support + + + + + | Name | Relationship | Address | Phone | + + + + + | Octavio Archer | ECON | [place] | | | | | [address] | | + + + + + Care Team Providers + +------+ + | Care Pharmacogeneticist Name | Role | Phone | + [...] | pain | [address] | | | | | Procedures | [address] | [address] [place] | | | | | MRI Hip | [place], | [place], [place] | | | | | Right | [place] [address] | [address] | | | | | Arthrogram w | Phone: | Phone: | | | | | Contrast | [phone] | [phone] | | | | | | Fax: | Fax: | | | | | | [phone] | [phone] | +--------+--------+ + + + + Reason [...] | pain | [address] | | | | | Procedures | [address] | [address] [place] | | | | | MRI Hip | [place], | [place], [place] | | | | | Right | [place] [address] | [address] | | | | | Arthrogram w | Phone: | Phone: | | | | | Contrast | [phone] | | | | | | | Fax: | Fax: | | | | | | [phone] | [phone] | +--------+--------+ + + + + Encounter Details +--------+ + + + + | Date | Type | Department | Care Team | Description | +--------+ + + + + | 03/23/ | Hospital | [facility] | Luis M Back, | Right hip pain | | 2019 | Encounter | MED CTR MRI [address] | MD [address] | | | | | [place], | [place], [place] | | | | | [place] [address] | [address] | | | | | [phone] | | | +--------+ + + + [...] | | | | | [place] [address] | | | | | | [phone] | | | | | | | | +--------+---------+ + + + | 12/06/ | Office | Neurology | Kashmir Matthew MD | | | 2019 | Visit | | [address] | | | | | | [place] | | | | | | [address] | | | | | | | [...]
--- OUTSIDE RECORDS SUMMARY | ~2019-08-25 | XMS | Clinical Summary ---
Demographics + + + | Address | [address] | | | [place] [address] | + + + | Home Phone | | + + + | Preferred Language | Unknown | + + + | Marital Status | Single | + + + | Rastafari Affiliation | Unknown | + + + | Race | Unknown | + + + | Ethnic Group | Unknown | + + + Author + + + | Author | [facility] | | | and Swapnilana | + + + | Organization | [facility] [...] [place] | | | | | [address] | | + + + + + Care Team Providers + +------+ + | Care Tag Clerk Name | Role | Phone | + [...] | | | | | [place] [address] | | | | | | [phone] | | | | | | | | +--------+---------+ + + + | 12/06/ | Office | Neurology | Kashmir Matthew MD | | | 2020 | Visit | | [address] | | | | | | [place] | | | | | | [address] | | | | | | | [...] | | | | | | [facility] | | | | | | MEDICAL [...] [address] | [place] | [phone] | | [facility] | | [address] | | | - LABORATORY | | [...] [address] | [place] | [phone] | | [facility] | | [address] | | | - LABORATORY | | [...] | [employer] | [employer] | [id number] | | [phone] | | Medica | [...] | 1955 | [phone] | [place] [address] | | | [place] | | | 8 (Home) | | + +--------+ +--------+ + + Advance Directives + + + + + | Type | Date Recorded | Patient | Explanation | | | | Clinical Nutritionist | | + + + + + | Power of | | | | | Podiatrist Assistant | | | | + + + + + | Advance | | | | | Directive | | | | + + + + +
--- OUTSIDE RECORDS SUMMARY | ~2019-08-25 | XMS | Encounter Summary ---
Demographics + + + | Address | [address] | | | [place] [address] | + + + | Home Phone | | + + + | Preferred Language | Unknown | + + + | Marital Status | Single | + + + | Sabianism Affiliation | Unknown | + + + | Race | Unknown | + + + | Ethnic Group | Unknown | + + + Author + + + | Author | [facility] | | | and Swapnilana | + + + | Organization | [facility] | | | and Swapnilana | + + + | Address | Unknown | + + + | Phone | Unavailable | + + + Support + + + + + | Name | Relationship | Address | Phone | + + + + + | Octavio Archer | ECON | [place] | | | | | [address] | | + + + + + Care Team Providers + +------+ + | Care Customer Marketing Manager Name | Role | Phone [...] | | [place] | [place] [address] | | | | | [address] | [phone] | | | | | [phone] | | | +--------+ + + + [...] | | | | | | [place] [address] | | | | | | [phone] | | | | | | | | +--------+---------+ + + + | 12/06/ | Office | Neurology | Kashmir Matthew MD | | 2019 | Visit | | [address] | | | | | | [place] | | | | | | [address] | | | | | | | | +--------+---------+ + + + documented as of this encounter Visit Diagnoses Not on filedocumented in this encounter"
--- OUTSIDE RECORDS SUMMARY | ~2019-08-25 | XMS | Encounter Summary ---
Demographics + + + | Address | [address] | | | [place] [address] | + + + | Home Phone | | + + + | Preferred Language | Unknown | + + + | Marital Status | Single | + + + | Hinduism Affiliation | Unknown | + + + | Race | Unknown | + + + | Ethnic Group | Unknown | + + + Author + + + | Author | [facility] | | | and Swapnliana | + + + | Organization | [facility] [...] [place] | | | | | [address] | | + + + + + Care Team Providers + +------+ + | Care Tag Maker Name | Role | Phone | + [...] | MED CTR EXTERNAL | MD [address] | | | | | IMAGING | Layo [place]ARZA | | | | | [phone] | [place] [address] | | +--------+ + + + + [...] | | | | | [place] [address] | | | | | | [phone] | | | | | | | | +--------+---------+ + + + | 12/06/ | Office | Neurology | Kashmir Matthew MD | | | 2019 | Visit | | [address] | | | | | | [place] | | | | | | [address] | | | | | | | [...]
--- OUTSIDE RECORDS SUMMARY | ~2019-08-25 | XMS | Encounter Summary ---
Demographics + + + | Address | [address] | | | [place] [address] | + + + | Home Phone [...] + | Author | [facility] | | | and Swapnilana | + + + | Organization | [facility] | | | and Swapnilana | + + + | Address | Unknown | + + + | Phone | Unavailable | + + + Support + + + + + | Name | Relationship | Address | Phone | + + + + + | Octavio Archer | ECON | [place] | | | | | [address] | | + + + + + Care Team Providers + +------+ + | Care Compression Molding Machine Tender Name | Role | Phone [...] [address] | | | | | [place], [place] | [place] [address] | | | | | [address] | [phone] | | | | | [phone] | | | +--------+ + + + [...] | | | | | [place] [address] | | | | | | [phone] | | | | | | | | +--------+---------+ + + + | 12/06/ | Office | Neurology | Kashmir Matthew MD | | | 2020 | Visit | | [address] | | | | | | [place] | | | | | | [address] | | | | | | | | +--------+---------+ + + + documented as of this encounter Visit Diagnoses Not on filedocumented in this encounter"
--- OUTSIDE RECORDS SUMMARY | ~2019-08-25 | XMS | Encounter Summary ---
Demographics + + + | Address | [address] | | | [place] [address] | + + + | Home Phone | | + + + | Preferred Language | Unknown | + + + | Marital Status | Single | + + + | Baptism Affiliation | Unknown | + + + | Race | Unknown | + + + | Ethnic Group | Unknown | + + + Author + + + | Author | [facility] | | | and Swapnilana | + + + | Organization | [facility] [...] [place] | | | | | [address] | | + + + + + Care Team Providers + +------+ + | Care Diet Assistant Name | Role | Phone | [...] | MED CTR EXTERNAL | MD [address] | | | | | IMAGING | Layo GALARZA | | | | | [phone] | [place] [address] | | +--------+ + + + + [...] | | | | | [place] [address] | | | | | | [phone] | | | | | | | | +--------+---------+ + + + | 12/06/ | Office | Neurology | Kashmir Matthew MD | | | 2019 | Visit | | [address] | | | | | | [place] | | | | | | [address] | | | | | | | [...]
--- OUTSIDE RECORDS SUMMARY | ~2019-08-25 | XMS | Encounter Summary ---
Demographics + + + | Address | [address] | | | [place] [address] | + + + | Home Phone | | + + + | Preferred Language | Unknown | + + + | Marital Status | Single | + + + | Jew Affiliation | Unknown | + + + | Race | Unknown | + + + | Ethnic Group | Unknown | + + + Author + + + | Author | [facility] | | | and Swapnilana | + + + | Organization | [facility] [...] [place] | | | | | [address] | | + + + + + Care Team Providers + +------+ + | Care Electric Lineman Name | Role | Phone | + [...] | 05/02/ | Telephone | [facility] [place] | Luis M Back, | Letter | | 2019 | | PHYSIATRY [address] | MD [address] [place] [address] | | | | | [place], | [place], [place] | | | | | [place] [address] | [address] | | | | | [phone] | | | +--------+ + + + [...] | | | | | [place] [address] | | | | | | [phone] | | | | | | | [...]
--- OUTSIDE RECORDS SUMMARY | ~2019-08-25 | XMS | Encounter Summary ---
Demographics + + + | Address | [address] | | | [place] [address] | + + + | Home Phone | | + + + | Preferred Language | Unknown | + + + | Marital Status | Single | + + + | Judaism Affiliation | Unknown | + + + | Race | Unknown | + + + | Ethnic Group | Unknown | + + + Author + + + | Author | [facility] | | | and Swapnilana | + + + | Organization | [facility] | | | and Swapnilana | + + + | Address | Unknown | + + + | Phone | Unavailable | + + + Support + + + + + | Name | Relationship | Address | Phone | + + + + + | Octavio Archer | ECON | [place] | | | | | [address] | | + + + + + Care Team Providers + +------+ + | Care Retail Selling Floor Leader Name | Role | Phone | [...] | | | | | region, | [address] | | | | | unspecified | [place], | [place], [place] | | | | | whether | [place] [address] | [address] | | | | | neurogenic | Phone: | Phone: | | | | | claudication | [phone] | [phone] | | | | | present | Fax: | Fax: | | | | | | [phone] | [phone] | +--------+ + + + + + [...] | | region, | [address] | [place], [place] | | | | | unspecified | [place], | [address] | | | | | whether | [place] [address] | Phone: | | | | | neurogenic | Phone: | [phone] | | | | | claudication | [phone] | Fax: | | | | | present | Fax: | [phone] | | | | | Procedures | [phone] | | | | | | PENDING [...] | | Spinal | Jaime Oleary, | [facility] | | | | | stenosis of | MD [address] | | | | | lumbar | [address] | J[place]MY [place] | | | | | region, | [address] | [place], [place] | | | | | unspecified | [place], | [address] | | | | | whether | [place] [address] | Phone: | | | | | neurogenic | Phone: | [phone] | | | | | claudication | [phone] | Fax: | | | | | present | Fax: | [phone] | | | | | Procedures | [phone] | | | | | | MRI [...] | | | | | degeneration | [place], | [place], | | | | | , lumbar | [place] | [place] [address] | | | | | region | [address] | Phone: | | | | | | Phone: | [phone] | | | | | | [phone] | Fax: | | | | | | Fax: | [phone] | | | | | | [phone] | | + +--------+ + + + [...] | unspecified whether | | | | [place], [place] | [place] [address] | neurogenic | | | | [address] | [phone] | claudication present | | | | [phone] | | (Primary Dx) | +--------+---------+ + [...] labs for you to complete today. 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 - We will order an MRI for you to be done at [facility]. Once completed we will see you ba esdras to discuss results. - We will enter a referral for Neurosurgery to [facility] and put a referral in for infectious [...] 08/11/2019 8:00 AM PST Jaime Jerez MD [address] [place] [address], [address] [place] [address] PHONE: FAX: NEUROSURGERY HISTORY AND PHYSICAL EXAMINATION [...] has no apparent deficits with short or custodial memory. MOTOR EXAM: (5 IS NORMAL) * [...] in this documentati on, as scribed by MRAI Baeza in my presence, and it is [...] | | | | | | [place] [address] | | | | | | [phone] | | | | | | | | +--------+---------+ + + + | 12/06/ | Office | Neurology | Kashmir Matthew MD | | 2019 | Visit | | [address] | | | | | | [place] | | | | | | [address] | | | | | | | [...] ST. | [address] | [place] | [phone] | | [facility] | | [address] | | | - LABORATORY | | [...] [address] | [place] | [phone] | | [facility] | | [address] | | | - LABORATORY | | [...]
--- OUTSIDE RECORDS SUMMARY | ~2019-08-25 | XMS | Encounter Summary ---
Demographics + + + | Address | [address] | | | [place] [address] | + + + | Home Phone | | + + + | Preferred Language | Unknown | + + + | Marital Status | Single | + + + | Mandaeism Affiliation | Unknown | + + + | Race | Unknown | + + + | Ethnic Group | Unknown | + + + Author + + + | Author | [facility] | | | and Swapnilana | + + + | Organization | [facility] | | | and Swapnilana | + + + | Address | Unknown | + + + | Phone | Unavailable | + + + Support + + + + + | Name | Relationship | Address | Phone | + + + + + | Octavio Archer | ECON | [place] | | | | | [address] | | + + + + + Care Team Providers + +------+ + | Care Lunch Cook Name | Role | Phone | + +------+ + | Divya Eubanks | PCP | | + +------+ + Reason for Visit + + + | Reason | Comments | + + + | Referral | | + + + Encounter Details +--------+ + + + + | Date | Type | Department | Care Team | Description | +--------+ + + + + | 08/22/ | Telephone | [facility] | Xavi Diamond DO | Referral | | 2019 | | NEUROSURGERY [address] | [address] | | | | | [address] | [address] | | | | | [place], [place] | [place] [address] | | | | | [address] | [phone] | | | | | [phone] | | | +--------+ + + + [...] | | | | | [place] [address] | | | | | | [phone] | | | | | | | | +--------+---------+ + + + | 12/06/ | Office | Neurology | Kashmir Matthew MD | | | 2020 | Visit | | [address] | | | | | | [place] | | | | | | [address] | | | | | | | | +--------+---------+ + + + documented as of this encounter Visit Diagnoses Not on filedocumented in this encounter"
--- OUTSIDE RECORDS SUMMARY | ~2019-08-25 | XMS | Encounter Summary ---
Demographics + + + | Address | [address] | | | [place] [address] | + + + | Home Phone | | + + + | Preferred Language | Unknown | + + + | Marital Status | Single | + + + | Hindu Affiliation | Unknown | + + + | Race | Unknown | + + + | Ethnic Group | Unknown | + + + Author + + + | Author | [facility] | | | and Swapnilana | + + + | Organization | [facility] | | | and Swapnilana | + + + | Address | Unknown | + + + | Phone | Unavailable | + + + Support + + + + + | Name | Relationship | Address | Phone | + + + + + | Octavio Archer | ECON | [place] | | | | | [address] | | + + + + + Care Team Providers + +------+ + | Care Software Design Analyst Name | Role | Phone | + [...] PHYSIATRY [address] | MD [address] | | | | | [place], | [place], [place] | | | | | [place] [address] | [address] | | | | | [phone] | | | +--------+ + + + [...] | | | | | [place] [address] | | | | | | [phone] | | | | | | | [...]
--- OUTSIDE RECORDS SUMMARY | ~2019-08-25 | XMS | Encounter Summary ---
Demographics + + + | Address | [address] | | | [place] [address] | + + + | Home Phone | | + + + | Preferred Language | Unknown | + + + | Marital Status | Single | + + + | Pentecostal Affiliation | Unknown | + + + | Race | Unknown | + + + | Ethnic Group | Unknown | + + + Author + + + | Author | [facility] | | | and Swapnilana | + + + | Organization | [facility] | | | and Swapnilana | + + + | Address | Unknown | + + + | Phone | Unavailable | + + + Support + + + + + | Name | Relationship | Address | Phone | + + + + + | Octavio Archer | ECON | [place] | | | | | [address] | | + + + + + Care Team Providers + +------+ + | Care Forestry Extension Specialist Name | Role | Phone | [...] | 05/02/ | Telephone | [facility] [place] | Luis M Back, | Letter | | 2019 | | PHYSIAT[address] | MD [address] | | | | | [place], | [place], [place] | | | | | [place] [address] | [address] | | | | | [phone] | | | +--------+ + + + [...] | | | | | [place] [address] | | | | | | [phone] | | | | | | | [...]
--- OUTSIDE RECORDS SUMMARY | ~2019-08-25 | XMS | Encounter Summary ---
Demographics + + + | Address | [address] | | | [place] [address] | + + + | Home Phone | | + + + | Preferred Language | Unknown | + + + | Marital Status | Single | + + + | Temple Affiliation | Unknown | + + + | Race | Unknown | + + + | Ethnic Group | Unknown | + + + Author + + + | Author | [facility] | | | and Swapnilana | + + + | Organization | [facility] | | | and Swapnilana | + + + | Address | Unknown | + + + | Phone | Unavailable | + + + Support + + + + + | Name | Relationship | Address | Phone | + + + + + | Octavio Archer | ECON | [place] | | | | | [address] | | + + + + + Care Team Providers + +------+ + | Care Gamma Facilities Operator Name | Role | Phone | + +------+ + PCP | Unavailable | + +------+ + Encounter Details +--------+ + + + + | Date | Type | Department | Care Team | Description | +--------+ + + + + | 05/18/ | Hospital | [facility] | Conversion | | | 1996 | Encounter | SYSTEM RADIOLOGY | Transaction, | | | | | CONVERSION [address] | Provider Unknown | | | | | [address] [place], [place] | | | | | | [address] | (Fax) | | | | | [...] | | | | | [place] [address] | | | | | | [phone] | | | | | | | | +--------+---------+ + + + | 12/06/ | Office | Neurology | Kashmir Matthew MD | | | 2020 | Visit | | [address] | | | | | | [place] | | | | | | [id number] | | | | | | | | +--------+---------+ + + + documented as of this encounter Visit Diagnoses Not on filedocumented in this encounter"
--- OUTSIDE RECORDS SUMMARY | ~2019-08-25 | XMS | Encounter Summary ---
Demographics + + + | Address | [address] | | | [place] [address] | + + + | Home Phone [...] Author | [facility] | | | and Swapnilana | + + + | Organization | [facility] | | | and Swapnilana | + + + | Address | Unknown | + + + | Phone | Unavailable | + + + Support + + + + + | Name | Relationship | Address | Phone | + + + + + | Octavio Archer | ECON | [place] | | | | | [address] | | + + + + + Care Team Providers + +------+ + | Care Milking System Installer Name | Role | Phone | + [...] [address] | | | | | [phone] | [place] [address] | | +--------+ + + + + [...] | | | | | [place] [address] | | | | | | [phone] | | | | | | | | +--------+---------+ + + + | 12/06/ | Office | Neurology | Kashmir Matthew MD | | | 2019 | Visit | | [address] | | | | | | [place] | | | | | | [address] | | | | | | | [...]
--- OUTSIDE RECORDS SUMMARY | ~2019-08-25 | XMS | Encounter Summary ---
Demographics + + + | Address | [address] | | | [place] [address] | + + + | Home Phone [...] Author + + + | Author | [facility] | | | and Swapnilana | + + + | Organization | [facility] | | | and Swapnilana | + + + | Address | Unknown | + + + | Phone | Unavailable | + + + Support + + + + + | Name | Relationship | Address | Phone | + + + + + | Octavio Archer | ECON | [place] | | | | | [address] | | + + + + + Care Team Providers + +------+ + | Care Distribution Engineer Name | Role | Phone | [...] + + | 08/22/ | Telephone | [facility] | Xavi Diamond DO | Referral | | 2019 | | NEUROSURGERY [address] | [address] | | | | | [address] | [address] | | | | | [place], [place] | [place] [address] | | | | | [address] | [phone] | | | | | [phone] | | | +--------+ + + + [...] | | | | | [place] [address] | | | | | | [phone] | | | | | | | | +--------+---------+ + + + | 12/06/ | Office | Neurology | Kashmir Matthew MD | | | 2020 | Visit | | [address] | | | | | | [place] | | | | | | [address] | | | | | | | | +--------+---------+ + + + documented as of this encounter Visit Diagnoses Not on filedocumented in this encounter"
--- OUTSIDE RECORDS SUMMARY | ~2019-08-25 | XMS | Encounter Summary ---
Demographics + + + | Address | [address] | | | [place] [address] | + + + | Home Phone [...] + + + | Author | [facility] | | | and Swapnilana | + + + | Organization | [facility] | | | and Swapnilana | + + + | Address | Unknown | + + + | Phone | Unavailable | + + + Support + + + + + | Name | Relationship | Address | Phone | + + + + + | Octavio Archer | ECON | [place] | | | | | [address] | | + + + + + Care Team Providers + +------+ + | Care Aircraft Cylinder Mechanic Name | Role | Phone | [...] PHYSIATRY [address] | MD [address] | | | | | [place], | [place], [place] | | | | | [place] [address] | [address] | | | | | [phone] | | | +--------+ + + + [...] | | | | | [place] [address] | | | | | | [phone] | | | | | | | | +--------+---------+ + + + | 12/06/ | Office | Neurology | Kashmir Matthew MD | | | 2019 | Visit | | [address] | | | | | | [place] | | | | | | [phone] | | | | | | | | +--------+---------+ + + + documented as of this encounter Visit Diagnoses Not on filedocumented in this encounter"
--- OUTSIDE RECORDS SUMMARY | ~2019-08-25 | XMS | Encounter Summary ---
Demographics + + + | Address | [address] | | | [place] [address] | + + + | Home Phone [...] + + + | Author | [facility] | | | and Swapnilana | + + + | Organization | [facility] | | | and Swapnilana | + + + | Address | Unknown | + + + | Phone | Unavailable | + + + Support + + + + + | Name | Relationship | Address | Phone | + + + + + | Octavio Archer | ECON | [place] | | | | | [address] | | + + + + + Care Team Providers + +------+ + | Care Counselor Supervisor Name | Role | Phone | [...] [address] | | | | | [place], | [address] [place] | | | | | [place] [address] | [place] [address] | | | | | [phone] | [phone] | | | | | | | [...] | | | | | [place] [address] | | | | | | [phone] | | | | | | | | +--------+---------+ + + + | 12/06/ | Office | Neurology | Kashmir Matthew MD | | | 2019 | Visit | | [address] | | | | | | [place] | | | | | | [id number] | | | | | | | | +--------+---------+ + + + documented as of this encounter Visit Diagnoses Not on filedocumented in this encounter"
--- OUTSIDE RECORDS SUMMARY | ~2019-08-25 | XMS | Encounter Summary ---
Demographics + + + | Address | [address] | | | [place] [address] | + + + | Home Phone [...] Team Providers + +------+ + | Care Anesthesiologist Assistant Name | Role | Phone | [...] [place] | | | | | | [address] | | | | | | [phone] | | | +--------+ + + + [...]
--- OUTSIDE RECORDS SUMMARY | ~2019-08-25 | XMS | Encounter Summary ---
Demographics + + + | Address | [address] | | | [place] [address] | + + + | Home Phone [...] | Author | [facility] | | | and Swapnilana | + + + | Organization | [facility] | | | and Swapnilana | + + + | Address | Unknown | + + + | Phone | Unavailable | + + + Support + + + + + | Name | Relationship | Address | Phone | + + + + + | Octavio Archer | ECON | [place] | | | | | [address] | | + + + + + Care Team Providers + +------+ + | Care Stucco Plasterer Name | Role | Phone | + [...] [address] | | | | | [phone] | [place] [address] | | +--------+ + + + + [...] | | | | | [place] [address] | | | | | | [phone] | | | | | | | | +--------+---------+ + + + | 12/06/ | Office | Neurology | Kashmir Matthew MD | | | 2019 | Visit | | [address] | | | | | | [place] | | | | | | [address] | | | | | | | [...]
--- OUTSIDE RECORDS SUMMARY | ~2019-08-25 | XMS | Encounter Summary ---
Demographics + + + | Address | [address] | | | [place] [address] | + + + | Home Phone [...] + + + | Author | [facility] | | | and Swapnilana | + + + | Organization | [facility] | | | and Swapnilana | + + + | Address | Unknown | + + + | Phone | Unavailable | + + + Support + + + + + | Name | Relationship | Address | Phone | + + + + + | Octavio Archer | ECON | [place] | | | | | [address] | | + + + + + Care Team Providers + +------+ + | Care Blow Pit Operator Name | Role | Phone | [...] | | | | | acetabular | [address] | [address] | | | | | labrum, | [place], | [address] | | | | | initial | [place] [address] | [place] | | | | | encounter | Phone: | [address] | | | | | Right hip | [phone] | Phone: | | | | | pain Right | Fax: | [phone] | | | | | leg weakness | [phone] | Fax: | | | | | | | [phone] | +--------+ + + + + + Encounter Details +--------+ + + + + | Date | Type | Department | Care Team | Description | +--------+ + + + + | 04/11/ | Orders Only | [facility] [place] | Luis M Back, | Tear of right | | 2018 | | PHYSIATRY [address] | [address] | acetabular labrum, | | | | [place], | [place], [place] | initial encounter | | | | [place] [address] | [address] | (Primary Dx); Right | | | | [phone] | | hip pain; Right leg | [...] | | | | | [place] [address] | | | | | | [phone] | | | | | | | | +--------+---------+ + + + | 12/06/ | Office | Neurology | Kashmir Matthew MD | | 2019 | Visit | | [address] | | | | | | [place], [place] | | | | | | [address] | | | | | | | [...]
--- OUTSIDE RECORDS SUMMARY | 2019-08-25 16:34 | XMS ---
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 Primary Care [facility]IMARY [facility] PHONE: Unknown Guidelines Source: [facility] [place] Guidelines Date: 02/16/2019 Care Coordination: Mental health services are being provided by [facility].\T\nbsp; Please contact [facility] with mental health concerns.\T\nbsp; [place]: \T\nbsp; [place]: [phone]. Care History Medical/Surgical 06/21/2019 [facility] - DR DUARTE REVIEWED PATIENT MRI AND IMAGING REPORTS - DOES NOT FEEL PATIENT NEEDS TO BE SEEN BY AN ORTHOPEDIC SURGEON. - REFERRED PATIENT TO PAIN MANAGEMENT PHYSICIAN DR ROMIE LOERA. - PATIENT PCP OFFICE-[facility] NOTIFIED OF THE DECISION 06/20/2019 [facility] - PATIENT IS CURRENTLY RECEIVING PAIN MANAGEMENT FROM DR ROMIE LOERA- PLEASE CONTACT DR LOERA IF ANY PAIN MEDICATIONS ARE ADMINISTERED TO PATIENT. - PATIENT HAS A REFERRAL TO ORTHOPEDIC SURGEON DR DUARTE ON 06/14/19. E.D. VISIT COUNT (12 MO.) 6 [facility]. TOTAL 6 NOTE: Visits indicate total known visits. ED/UCC VISIT TRACKING (12 MO.) 08/25/2019 16:31 [facility] [place] TYPE: Emergency COMPLAINT: - PAIN 2019 15:11 [facility] [place] TYPE: Emergency COMPLAINT: - PAIN NON INJURY DIAGNOSES: - Major depressive disorder, single episode, unspecified - Anxiety disorder, unspecified - Low back pain - Other 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 project manager (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 - Other intervertebral disc degeneration, lumbar region 06/19/2019 23:33 [facility] [place] TYPE: Emergency COMPLAINT: - BACK PAIN DIAGNOSES: - Low back pain - Other 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 project manager (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 - Major depressive disorder, single episode, unspecified - Nicotine dependence, unspecified, uncomplicated 04/11/2019 09:08 [facility] [place] TYPE: Emergency COMPLAINT: - RIGHT LEG PAIN/NON INJURY DIAGNOSES: - Pain in right thigh - Anxiety disorder, unspecified - Nicotine dependence, unspecified, uncomplicated - Other 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 (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 - Other chronic pain - Pain in right hip - Major depressive disorder, single episode, unspecified - Low back pain 02/14/2019 12:00 [facility] [place] TYPE: Emergency COMPLAINT: - RIGHT LEG PAIN NON INJURY DIAGNOSES: - Cramp and spasm - Nicotine dependence, unspecified, uncomplicated - Muscle spasm of calf - Other 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 project manager (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 - Anxiety disorder, unspecified - Major depressive disorder, single episode, unspecified 09/15/2018 20:24 [facility] [place] TYPE: Emergency COMPLAINT: - L LEG SWELLING DIAGNOSES: - Unsp inj musc/tend post grp at low leg level, left leg, init - Pain in left lower leg - Nicotine dependence, unspecified, uncomplicated - Anxiety disorder, unspecified - Other 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 project manager (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 - Exposure to other specified factors, initial encounter - Major depressive disorder, single episode, unspecified INPATIENT VISIT TRACKING (12 MO.) No inpatient visits to display in this time frame [email or web address]
== END 2019-08-25 18:15 | disposition home or self-care (01) ==
LOC: ED 16:31
DX: M51.16 Intervertebral disc disorders with radiculopathy, lumbar region (principal); F32.9 Major depressive disorder, single episode, unspecified; F41.9 Anxiety disorder, unspecified; Z87.891 Personal history of nicotine dependence; Z79.899 Other long term (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
CPT/HCPCS: 99283

== ENCOUNTER 2019-09-09 13:16 | Emergency (ER) | payer OTHER ==
[~2019-09-09] VITALS: Ht 162.6 cm; Wt 47.6 kg
--- OUTSIDE RECORDS SUMMARY | 2019-09-09 13:18 | XMS ---
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 Security Quality Assurance Manager Events No recent Security Events currently on file CRITERIA MET - [facility] - Has Care Guidelines - PDMP - [facility] - 2 Visits in 30 Days CARE PROVIDERS ANTONY ROJAS Physician Atmospheric Drier Tender 06/20/2019-Current PHONE: [phone] YA LANDON Physician Atmospheric Drier Tender: Medical 08/08/2019-Current PHONE: [phone] ROMIE LOERA MD Psychiatry \T\ Neurology: Psychiatry 04/12/2019-Current PHONE: Unknown [facility] Primary Care [facility] PRIMARY CARE CNTR PHONE: Unknown Guidelines Source: [facility] Guidelines Date: 02/16/2019 Care Coordination: Mental health services are being provided by [employer].\T\nbsp; Please contact [facility] with mental health concerns.\T\nbsp; [place]: [phone]\T\nbsp; [place]: [phone]. Care History Medical/Surgical 06/21/2019 [facility] - DR DUARTE REVIEWED PATIENT MRI AND IMAGING REPORTS - DOES NOT FEEL PATIENT NEEDS TO BE SEEN BY AN ORTHOPEDIC SURGEON. - REFERRED PATIENT TO PAIN MANAGEMENT PHYSICIAN DR ROMIE LOERA. - PATIENT PCP OFFICE-[facility] NOTIFIED OF THE DECISION 06/20/2019 [facility] - PATIENT IS CURRENTLY RECEIVING PAIN MANAGEMENT FROM DR ROMIE LOERA- PLEASE CONTACT DR LOERA IF ANY PAIN MEDICATIONS ARE ADMINISTERED TO PATIENT. - PATIENT HAS A REFERRAL TO ORTHOPEDIC SURGEON DR DUARTE ON 06/14/19. E.D. VISIT COUNT (12 MO.) 7 [facility] TOTAL 7 NOTE: Visits indicate total known visits. 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 - Anxiety disorder, unspecified - Personal history of nicotine dependence - Intervertebral disc disorders w radiculopathy, lumbar region 2019 15:11 [facility] [place] TYPE: Emergency COMPLAINT: - PAIN NON INJURY DIAGNOSES: - Major depressive disorder, single episode, unspecified - Anxiety disorder, unspecified - Low back pain - 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 - Other intervertebral disc degeneration, lumbar region 06/19/2019 23:33 [facility] [place] TYPE: Emergency COMPLAINT: - BACK PAIN DIAGNOSES: - Low back pain - [place] [facility] 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 - Major depressive disorder, single episode, unspecified - Nicotine dependence, unspecified, uncomplicated 04/11/2019 09:08 [facility] [place] TYPE: Emergency COMPLAINT: - RIGHT LEG PAIN/NON INJURY DIAGNOSES: - Pain in right thigh - Anxiety disorder, unspecified - Nicotine dependence, unspecified, uncomplicated - 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 [place] TYPE: Emergency COMPLAINT: - L LEG SWELLING DIAGNOSES: - Unsp inj musc/tend post grp at low leg level, left leg, init - Pain in left lower leg - Nicotine dependence, unspecified, uncomplicated - Anxiety disorder, unspecified - Other [place] [facility] [place]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 - Exposure to other specified factors, initial encounter - Major depressive disorder, single episode, unspecified INPATIENT VISIT TRACKING (12 MO.) No inpatient visits to display in this time frame [email or web address]
== END 2019-09-09 17:33 | disposition home or self-care (01) ==
LOC: ED 13:16
DX: M54.32 Sciatica, left side (principal); M54.31 Sciatica, right side; F32.9 Major depressive disorder, single episode, unspecified; F41.9 Anxiety disorder, unspecified; Z79.899 Other long term (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
CPT/HCPCS: 51701; 80053; 81001; 85025; 99283-25; J1885; J7030

== ENCOUNTER 2019-10-16 09:17 | Emergency (ER) | payer OTHER ==
[~2019-10-16] VITALS: Ht 162.6 cm; Wt 52.2 kg
--- OUTSIDE RECORDS SUMMARY | 2019-10-16 09:20 | XMS ---
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 Security Physics And Astronomy Professor Events No recent Security Events currently on file CRITERIA MET - 6 ED Visits in 6 Months CARE PROVIDERS ANTONY ROJAS Physician Underground Electrician 06/20/2019-Current PHONE: [phone] YA LANDON Physician Underground Electrician: Medical 08/08/2019-Current PHONE: [phone] SAADIA HERNANDEZ Physician Underground Electrician 09/12/2019-Current PHONE: [phone] ROMIE LOERA MD Psychiatry \T\ Neurology: Psychiatry 04/12/2019-Current PHONE: [phone] [facility] Primary Care Current PRIMARY CARE CNTR PHONE: Unknown [facility] Date: 09/12/2019 Care Coordination: Currently engaged in mental health services with [facility].\T\nbsp; Closely working with Case Management and Therapy.\T\nbsp; Please contact [facility] with mental health concerns.\T\[facility]; [place]: [phone]. Care History Medical/Surgical 06/21/2019 [facility] - DR DUARTE REVIEWED PATIENT MRI AND IMAGING REPORTS - DOES NOT FEEL PATIENT NEEDS TO BE SEEN BY AN ORTHOPEDIC SURGEON. - REFERRED PATIENT TO PAIN MANAGEMENT PHYSICIAN DR ROMIE LOERA. - PATIENT PCP OFFICE-[facility] CARE NOTIFIED OF THE DECISION 06/20/2019 [facility] - PATIENT IS CURRENTLY RECEIVING PAIN MANAGEMENT FROM DR ROMIE LOERA- PLEASE CONTACT DR LOERA IF ANY PAIN MEDICATIONS ARE ADMINISTERED TO PATIENT. - PATIENT HAS A REFERRAL TO ORTHOPEDIC SURGEON DR DUARTE ON 06/14/19. E.D. VISIT COUNT (12 MO.) [address] TOTAL 8 NOTE: Visits indicate total known visits. ED/C VISIT TRACKING (12 MO.) 10/16/2019 09:18 [facility] [place] TYPE: Emergency COMPLAINT: - PAIN FROM FALL, RECENT BACK SURGERY 09/14/2019 09:[address] 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 - Major depressive disorder, single episode, unspecified - Sciatica, left side - Anxiety disorder, unspecified - Weakness 08/25/2019 16:31 [facility] [place] TYPE: Emergency COMPLAINT: - PAIN DIAGNOSES: - Major depressive disorder, single episode, unspecified - Low back pain - Other longterm (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 - Anxiety disorder, unspecified - Personal history of nicotine dependence - Intervertebral disc disorders w radiculopathy, lumbar region 2019 15:11 [facility] [place] [facility] [place] TYPE: Emergency COMPLAINT: - PAIN NON INJURY DIAGNOSES: - Major depressive disorder, single episode, unspecified - Anxiety disorder, unspecified - Low back pain - 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 treater (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 - Other intervertebral disc degeneration, lumbar region 06/19/2019 23:33 [facility] [place] TYPE: Emergency COMPLAINT: - BACK PAIN DIAGNOSES: - Low back pain - 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 treater (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 - Major depressive disorder, single episode, unspecified - Nicotine dependence, unspecified, uncomplicated 04/11/2019 09:08 [facility] [place] TYPE: Emergency COMPLAINT: - RIGHT LEG PAIN/NON INJURY DIAGNOSES: - Pain in right thigh - Anxiety disorder, unspecified - Nicotine dependence, unspecified, uncomplicated - 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 treater (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 - Other chronic pain - Pain in right hip - Major depressive disorder, single episode, unspecified - Low back pain 02/14/2019 12:00 [facility] [place] TYPE: Emergency COMPLAINT: - RIGHT LEG PAIN NON INJURY DIAGNOSES: - Cramp and spasm - Nicotine dependence, unspecified, uncomplicated - Muscle spasm of calf - Other longterm (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 - Anxiety disorder, unspecified - Major depressive disorder, single episode, unspecified INPATIENT VISIT TRACKING (12 MO.) 09/14/2019 09:26 [facility] TYPE: Neuro Surgery DIAGNOSES: - Abnormal findings on diagnostic imaging of prt ms sys - Other chronic pain - Discitis, unspecified, site unspecified - Low back pain - Lumbago with sciatica, left side - Major depressive disorder, recurrent, unspecified - Generalized anxiety disorder - Lumbago with sciatica, right side [email or web address]
[2019-10-16] MEDS ORDERED: HYDROXYZINE HCL25 MG PO (09:31)
[2019-10-16] MEDS ORDERED: PREDNISONE20 MG PO (11:32)
== END 2019-10-16 12:13 | disposition home or self-care (01) ==
LOC: ED 09:17
DX: M54.16 Radiculopathy, lumbar region (principal); Z98.1 Arthrodesis status; F32.9 Major depressive disorder, single episode, unspecified; F41.9 Anxiety disorder, unspecified; Z79.899 Other long term (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
CPT/HCPCS: 72100; 80048; 85025; 85651; 96374; 96375; 99283-25; J1100; J1885

== ENCOUNTER 2020-04-19 07:00 | Day surgery (SDC) | payer OTHER ==
[~2020-04-19] VITALS: Ht 162.6 cm; Wt 49.9 kg
[~2020-04-19 07:00] MED LIST changes: +HYDROXYZINE HCL25 MG PO
--- NOTE | 2020-04-19 09:21 | NUR ---
PT PROVIDED WITH WARM BLANKETS. NO OTHER REQUESTS. PT WAITING FOR HER SCHEDULED PROCEDURE.
--- NOTE | 2020-04-19 11:20 | NUR ---
PT SEEMED RATHER CAUTIOUS AND APPREHENSIVE WHEN I ENTERED HER RM AND INTRO MYSELF. SHE WAS CONCERNED SOMETHING WAS WRONG THAT SHE WAS NOT AWARE OF. SPENT NEXT FEW MOMENTS REASSURING PT THERE WAS NO PROBLEM AND THAT I WAS JUST VISITING CARING FOR HER PERSONALLY. PT RELAXED, BUT WAS RATHER RESTLESS, AND REQUESTED A WARM BLANKET. PT'S RIDE HOME IS [place], SHARED WITH ANGELA COBOS. HE WILL FOLLOW UP. PT DECLINED PRAYER, BUT STATED SHE TALKS TO GOD OFTER. GAVE BLESSING AND WILL FOLLOW NEEDED
--- NOTE | 2020-04-19 12:11 | NUR ---
04/19/20 1211 Sheets,Clara 1205 PT ARRIVED TO PACU ON 10L VIA MASK, PT LAYING ON LEFT SIDE AND NONAROUSABLE TO PAINFUL STIMULI. VSS.
--- NOTE | 2020-04-19 17:21 | EKG ---
[facility] [address] [facility] [place], [place] [address] Signed Normal sinus rhythm Normal ECG When compared with ECG of 07-AUG-2019 16:06, No significant change was found Confirmed by EDMUNDO LOUISE MD ([id number]) on 04/19/2020 5:21:25 PM Electronically Signed By: EDMUNDO LOUISE MD 04/19/20 1721 PATIENT NAME: PAIGE RIGGS Electrocardiogram DATE OF : 59 PHYSICIAN: EDMUNDO LOUISE MD REPORT #: [id number] REPORT IS CONFIDENTIAL AND NOT TO BE RELEASED WITHOUT AUTHORIZATION
--- NOTE | 2020-04-19 18:32 | OR ---
[facility] [address] [place], [place] [address] Signed DATE OF OPERATION: 04/19/2020 SURGEON: Massimo Garvin MD PREOPERATIVE DIAGNOSIS: Microcytic anemia. POSTOPERATIVE DIAGNOSES: 1. Mild antral gastritis without ulceration. 2. Redundant, but normal colon. PROCEDURES: 1. Esophagogastroduodenoscopy with biopsy. 2. Total colonoscopy to cecum. ANESTHESIA: Intravenous sedation, propofol infusional technique; Massimo Conway CRNA. INDICATION: This 64-year-old white woman is a patient of EVA Hernandez and referred for consideration of upper endoscopy and colonoscopy related to microcytic anemia. Notably, she has had a difficult past history including homelessness for several years, now in a more stable situation. She has longstanding substance abuse including daily alcohol intake as well as use of buprenorphine as administered by Dr. Fernandez and recent and ongoing smoking as well as methamphetamine use. She is admitted at this time to undergo upper endoscopy on the basis of findings of microcytic anemia noted by EVA Hernandez. The risks of bleeding, infection, perforation related to upper endoscopy and colonoscopy was reviewed with her. She understands and wished to proceed. FINDINGS: Upper endoscopy showed a hiatal hernia as well as chronic gastritis, but no sign of ulceration or neoplasm. CLOtest was negative 30 minutes postprocedure. On colonoscopy, the prep was adequate. The colon was redundant. There was no sign of abnormality specifically no cancer, polyps, colitis, or significant diverticular changes. DESCRIPTION OF PROCEDURE: The patient was brought to the surgical endoscopy suite room #2, given topical Hurricaine spray hypopharyngeal anesthesia and placed in lateral decubitus position. Electronically Signed By: MASSIMO GARVIN MD 04/19/20 1832 PATIENT NAME: PAIGE RIGGS OPERATIVE REPORT DATE OF : 59 REPORT #: [id number] PHYSICIAN: MASSIMO GARVIN MD PCP: DIVYA EUBANKS PA-C REPORT IS CONFIDENTIAL AND NOT TO BE RELEASED WITHOUT AUTHORIZATION [facility] [address] [place], [place] [address] Signed She was given intravenous sedation to the point of slurred speech and nystagmus with full cardiopulmonary monitoring. A bite block was placed. An Olympus video upper endoscope was passed in the hypopharynx. The vocal cords were normal. The scope was advanced to the esophagus throughout its length, it was normal. The scope was passed to the stomach, which was insufflated with air with some bile in the stomach, which was suctioned free. Rugal folds were normal. Antral motility was normal. Pylorus was normal. Scope was passed through into the duodenum, which appeared normal. Biopsies were taken of the duodenum to assess for celiac disease. The scope was withdrawn and biopsy was then taken of pre-pyloric antrum for both LISA and pathologic testing. There was a reticular appearance of mucosa consistent with chronic gastritis. Retroflexed view was undertaken showing a moderate-sized hiatal hernia. The scope was further withdrawn and biopsy was then taken of the distal esophagus. The remaining esophagus was normal. Plans were then made for colonoscopy. Digital rectal examination was undertaken showing essentially no tone at all, likely an indicator of her relaxation with sedation. An Olympus video colonoscope was passed in the rectum and although, the prep was not great, it was adequate enough with irrigation and special care, manipulation of the scope to negotiate ultimately to the cecum itself. The colon was impressively long and redundant and non fixed. Ultimately, the cecum was intubated. The ileocecal valve and appendiceal orifice identified. The scope was withdrawn from that point. Careful inspection upon withdrawal of scope showed no sign of lesion to account for anemia, specifically no polyps, cancer, diverticular formation, colitis, arteriovenous malformations, or other problem. Retroflexed view of the rectum was normal as well. The scope was removed and the patient was taken to the recovery room in good condition. CONCLUDING DIAGNOSIS: No lesion on gastrointestinal endoscopy to account for microcytic anemia. PLAN: She will return to the ongoing care of EVA Hernandez. Consideration will be made that perhaps her polysubstance abuse would contribute to her anemia in someway. MD SHAHEEN Allen/MODL /[id number] Electronically Signed By: MASSIMO GARVIN MD 04/19/20 1832 PATIENT NAME: PAIGE RIGGS OPERATIVE REPORT DATE OF : 59 REPORT #: [id number] PHYSICIAN: MASSIMO GARVIN MD PCP: DIVYA EUBANKS PA-C REPORT IS CONFIDENTIAL AND NOT TO BE RELEASED WITHOUT AUTHORIZATION [address] [address] Signed cc: Divya Eubanks PA-C Copies: DIVYA EUBANKS PA-C ~ Electronically Signed By: MASSIMO GARVIN MD 04/19/20 1832 PATIENT NAME: PAIGE RIGGS OPERATIVE REPORT DATE OF : 59 REPORT #: [id number] PHYSICIAN: MASSIMO GARVIN MD PCP: DIVYA EUBANKS PA-C REPORT IS CONFIDENTIAL AND NOT TO BE RELEASED WITHOUT AUTHORIZATION
--- NOTE | 2020-04-24 12:50 | PATH ---
[facility] [address] [facility] [place] [address] Signed SPECIMEN(S): A DUODENUM SPECIMEN(S): B ANTRUM/PYLORUS SPECIMEN(S): C DISTAL ESOPHAGUS SPECIMEN SOURCE: A. DUODENUM B. ANTRUM/PYLORUS C. DISTAL ESOPHAGUS CLINICAL HISTORY: Colonoscopy/EGD. Constipation, epigastric pain, iron deficiency anemia history. Postop: Mild gastritis. MICROSCOPIC DESCRIPTION: Histologic sections of all submitted blocks are examined by light microscopy. These findings, together with the gross examination, support the pathologic diagnosis. FINAL PATHOLOGIC DIAGNOSIS: A. Duodenum, biopsy: - No significant histopathology. B. Stomach, antrum/pylorus, biopsy: - No significant histopathologic alterations of what appear to be pylorus/duodenal fragments and antrum. C. Distal esophagus, biopsy: - Portions of unremarkable squamous mucosa. COMMENT: (A) The sections from the duodenal biopsy show portions of duodenal mucosa with long fingerlike villi. There is no villous atrophy, crypt hyperplasia or intraepithelial lymphocytosis making a diagnosis of celiac disease unlikely. There is no evidence of peptic duodenitis, microorganisms, abnormal infiltrates or neoplasia. (B) The sections through the gastric biopsies show fragments of histologically unremarkable antral mucosa and pylorus. There is no evidence of acute or chronic inflammation. There is no evidence of H. pylori, intestinal metaplasia, abnormal infiltrates or neoplasia. (C) The biopsy shows normal appearing squamous epithelium. There is no evidence of acute or chronic inflammation. No glandular mucosa is present. [id number] GROSS DESCRIPTION: PATIENT NAME: PAIGE RIGGS PATHOLOGY DATE OF : 59 REPORT #: [id number] PHYSICIAN: GUERO STEWART PCP: SAADIA HERNANDEZ PA-C REPORT IS CONFIDENTIAL AND NOT TO BE RELEASED WITHOUT AUTHORIZATION [facility] [address] [place], [place] [address] Signed Three specimens are received in three containers, labeled "DH." A. The specimen, labeled "DH, #1," and designated on the requisition "duodenum," is received in formalin and consists of two villareal soft tissue fragments that measure 0.3 cm in greatest dimension. The specimen is entirely submitted in cassette (A1). B. The specimen, labeled "DH, #2," and designated on the requisition "antrum/pylorus," is received in formalin and consists of three villareal soft tissue fragments that measure 0.3 cm in greatest dimension. The specimen is entirely submitted in cassette (B1). C. The specimen, labeled "DH, #3," and designated on the requisition "distal esophagus," is received in formalin and consists of one villareal soft tissue fragment that measures 0.5 cm in greatest dimension. The specimen is entirely submitted in cassette (C1). AT (under the direct supervision of a pathologist) The Gross Description was prepared using a voice recognition system. The report was reviewed for accuracy; however, sound-alike word errors, addition and/or deletions may occur. If there is any question about this report, please contact Client Services. PERFORMING LABORATORY: The technical component was performed by [facility], [address] [place] [id number] (Stockroom Worker: Isa Fink MD; CLIA# [id number]). [facility] [place] [address] [place] [address]. Diagnostician: Issac Haider MD Pathologist Electronically Signed 04/24/2020 Copies: ~ PATIENT NAME: PAIGE RIGGS PATHOLOGY DATE OF : 59 REPORT #: [id number] PHYSICIAN: GUERO STEWART PCP: SAADIA HERNANDEZ PA-C REPORT IS CONFIDENTIAL AND NOT TO BE RELEASED WITHOUT AUTHORIZATION
== END 2020-04-19 12:53 | disposition home or self-care (01) ==
LOC: OPS 07:00 → DS 07:00 → OPS 08:00 → DS 08:00 → OPS 12:53
PROVIDERS: ATTEND Surgery
PROC: 0DB38ZX Excision of Lower Esophagus, Via Natural or Artificial Opening Endoscopic, Diagnostic (ICD-10-PCS; 2020-04-19)
PROC: 0DJD8ZZ Inspection of Lower Intestinal Tract, Via Natural or Artificial Opening Endoscopic (ICD-10-PCS; 2020-04-19)
PROC: 0DB98ZX Excision of Duodenum, Via Natural or Artificial Opening Endoscopic, Diagnostic (ICD-10-PCS; principal; 2020-04-19 08:00)
PROC: 0DB78ZX Excision of Stomach, Pylorus, Via Natural or Artificial Opening Endoscopic, Diagnostic (ICD-10-PCS; 2020-04-19 08:00)
DX: D50.9 Iron deficiency anemia, unspecified (principal); K44.9 Diaphragmatic hernia without obstruction or gangrene; F10.20 Alcohol dependence, uncomplicated; Z79.899 Other long term (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; Z87.891 Personal history of nicotine dependence
CPT/HCPCS: 93005; 93010; J2704; J7121

== ENCOUNTER 2022-01-03 12:18 | Emergency (ER) | payer OTHER ==
[~2022-01-03] VITALS: Ht 162.6 cm; Wt 53.1 kg
--- OUTSIDE RECORDS SUMMARY | 2022-01-03 12:20 | XMS ---
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 No recent Security Events currently on file CRITERIA MET - PDMP CARE PROVIDERS ANTONY ROJAS Physician Hazmat Cdl Driver 06/20/2019-Current PHONE: [phone] YA LANDON Physician Hazmat Cdl Driver: Medical 08/08/2019-Current PHONE: [phone] SAADIA HERNANDEZ Physician Hazmat Cdl Driver 09/12/2019-Current PHONE: [phone] ROMIE LOERA MD Psychiatry \T\ Neurology: Psychiatry 04/12/2019-Current PHONE: [phone] Care Guidelines exist for the following facilities: [facility] ( 09/12/2019 ) Care History Medical/Surgical 06/21/2019 [facility] - DR DUARTE REVIEWED PATIENT MRI AND IMAGING REPORTS - DOES NOT FEEL PATIENT NEEDS TO BE SEEN BY AN ORTHOPEDIC SURGEON. - REFERRED PATIENT TO PAIN MANAGEMENT PHYSICIAN DR ROMIE LOERA. - PATIENT PCP OFFICE-[facility] CARE NOTIFIED OF THE DECISION 06/20/2019 [facility] - PATIENT IS CURRENTLY RECEIVING PAIN MANAGEMENT FROM DR ROMIE LOERA- PLEASE CONTACT DR LOERA IF ANY PAIN MEDICATIONS ARE ADMINISTERED TO PATIENT. - PATIENT HAS A REFERRAL TO ORTHOPEDIC SURGEON DR DUARTE ON 06/14/19. E.D. VISIT COUNT (12 MO.) 1 [facility]. TOTAL 1 NOTE: Visits indicate total known visits. ED/UCC VISIT TRACKING (12 MO.) 01/03/2022 12:18 [facility] TYPE: Emergency COMPLAINT: - DIZZY, SLURRED SPEECH, FALLING OVER INPATIENT VISIT TRACKING (12 MO.) 10/17/2021 09:02 [facility] [place] TYPE: Surgery DIAGNOSES: - Spondylolisthesis, lumbar region - Radiculopathy, lumbar region - Arthrodesis status - Spinal stenosis, lumbar region without neurogenic claudication [email or web address]
[2022-01-03] MEDS ORDERED: CYCLOBENZAPRINE5 MG PO (14:58)
--- NOTE | 2022-01-05 08:57 | EKG ---
[facility] [address] [facility] [place] [address] Signed Normal sinus rhythm Cannot rule out Anterior infarct , age undetermined Abnormal ECG When compared with ECG of 19-APR-2020 07:14, No significant change was found Confirmed by KT JOHNSON MD ([id number]) on 01/05/2022 8:57:22 AM Electronically Signed By: KT JOHNSON MD 01/05/22 0857 PATIENT NAME: PAIGE RIGGS Electrocardiogram DATE OF : 59 PHYSICIAN: KT JOHNSON MD REPORT #: [id number] REPORT IS CONFIDENTIAL AND NOT TO BE RELEASED WITHOUT AUTHORIZATION
== END 2022-01-03 18:39 | disposition home or self-care (01) ==
LOC: ED 12:18
DX: F19.10 Other psychoactive substance abuse, uncomplicated (principal); Z87.891 Personal history of nicotine dependence; Z79.899 Other long term (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
CPT/HCPCS: 36415; 71045; 80053; 81001; 84484; 85025; 93005; 93010; 99284-25; G0480

== ENCOUNTER 2022-01-04 15:16 | Inpatient (IN) | payer OTHER ==
[~2022-01-04] VITALS: Ht 162.6 cm; Wt 55.8 kg
--- NOTE | ~2022-01-04 | CONS ---
[facility] [address] [place], [place] [address] Draft DATE OF CONSULTATION: 01/05/2022 REQUESTING PHYSICIAN: Dr. Johnson. PROBLEM: Recent coffee-ground emesis, probable right-sided aspiration and hypotension. HISTORY OF PRESENT ILLNESS: This 66-year-old white woman is now in the intensive care unit on a ventilator. She presented to the emergency room at approximately 4:30 p.m. yesterday and was evaluated by Dr. Pierre with cough and hemoptysis. She had shortness of breath. She is not known to have underlying lung disease or thromboembolic disease. She had been seen the day before by Dr. Pierre and considered to have polysubstance abuse with multiple positive urine drug screen. The patient was noted to have a decreased hemoglobin as well as a low pulse oximetry reading, was placed on supplemental oxygen in the emergency room. She had an increase in creatinine and decreased hemoglobin and a mildly elevated D-dimer. She was subsequently admitted by Dr. Johnson at approximately 8:00 p.m. Her hematocrit was noted to be 27.7. A chest x-ray performed showed gas distending the distal esophagus suggesting small hiatal hernia and probable reflux. She was initiated on BiPAP therapy for relative hypoxemia, ultimately undergoing intubation. Interstitial pneumonia was considered likely in the right lower lung field. Creatinine was noted to be elevated. The patient has been on buprenorphine related to opiate use disorder as well as gabapentin. The patient was ultimately having progression of respiratory distress and blue team in the ICU at approximately midnight, requiring intubation. The patient was thought to likely have aspirated. A CT scan was performed at approximately 2:00 a.m. for the indication of abdominal distention and hematemesis. Dense consolidation in the medial aspect of the lower lobes bilaterally was noted, a fair amount of stool throughout the colon suggesting constipation. There is no evidence of free air. Normal spleen and liver were noted. The patient has since been on pressor agents, norepinephrine currently at maximal dose. The systolic pressure between 82 and 102. She additionally has required PEEP on her ventilator settings to maintain adequate oxygenation. That has since been decreased. Consultation is undertaken for consideration of upper endoscopy on the basis of what was presumed to be hematemesis. An orogastric tube has been in place and there has not been any bright blood or even dark blood noted in the past several hours. She has had abdominal distention (in my view, likely related to BiPAP and possibly bag ventilation at time of intubation) and bladder pressure was found to be 9 mm, therefore unlikely to be compartment syndrome accounting for urinary oliguria. Her lab studies this morning show white count of only 2.6, hematocrit of 37.6, and platelet count of PATIENT NAME: PAIGE RIGGS CONSULTATION DATE OF : 59 REPORT #: [id number] PHYSICIAN: MASSIMO GARVIN MD PCP: SAADIA HERNANDEZ PA-C REPORT IS CONFIDENTIAL AND NOT TO BE RELEASED WITHOUT AUTHORIZATION [facility] [address] [place] [id number] Draft 163,000. She did have 2 units of blood transfused. Serology shows no evidence of COVID disease. She has no urinalysis. Coagulation studies show an INR of 1.27. A D-dimer was 0.76, which is elevated, though not markedly so. ABG recently performed showed a pH of 7.31, pCO2 of 42, pO2 108, and saturation 97.1. Venous blood gas was obtained with a pH of 7.22, pCO2 of 56.5. PHYSICAL EXAMINATION: GENERAL: The patient remains sedated with propofol infusional drip at this time. HEENT: Oral tracheal tube is noted and without sinus secretions within it. An orogastric tube shows dark fluid within it. The trachea is midline. I see no jugular venous distention. CHEST: Normal respiratory excursion. ABDOMEN: Somewhat distended, but without focal tenderness. EXTREMITIES: No clubbing, cyanosis, or edema. LABORATORY DATA: Lab studies as previously noted. Most recent hematocrit 37.6, up from 23.7 with only 2 units of packed red cells. Most recent chest x-ray was at 0100 hours, which shows a right lower lobe infiltrative appearance. I see no evidence of free air. The orogastric tube is in the stomach. There is some hardware near the lumbar spine. ASSESSMENT: The patient has critical illness for which two requests have been made, one for upper endoscopy to assess for gastrointestinal bleeding source and the other for central venous catheter placement. Both of them are appropriate. I spoke with her niece on the phone, who is in [place]; she is a nurse and understands the particulars in detail. A bedside upper endoscopy may be appropriate as transport would be rather tenuous. We will have anesthesia assistance although, the patient is reasonably well sedated already with propofol. The risks of bleeding, infection, and perforation were reviewed regarding upper endoscopy with her niece who we take as her next of kin based on her administrative paperwork in the chart. The patient is on a maximal hemodynamic support with pressor agents and not known to be have active bleeding at this time, though possibly did previously. Whether or not interventions would be beneficial or even possible remains to be determined. The risks to upper endoscopy in particular including hypertension or worsening of her already significant hypotension, but if a bleeding source could be identified and controlled, it would in almost certainly help her overall situation. Her generalized issue present to me appears to be her probable aspiration and the underlying sequela. A chest x-ray will be performed in due course as her last one was more than 8 hours ago. As regard the central venous catheter it would be beneficial for administration of PATIENT NAME: PAIGE RIGGS CONSULTATION DATE OF : 59 REPORT #: [id number] PHYSICIAN: MASSIMO GARVIN MD PCP: SAADIA HERNANDEZ PA-C REPORT IS CONFIDENTIAL AND NOT TO BE RELEASED WITHOUT AUTHORIZATION [address], [place] [address] Draft pressor agents to be sure and that was also consented to by her niece. MD SHAHEEN Allen/MODL /[id number] cc: Kt Johnson MD Copies: KT JOHNSON MD ~ PATIENT NAME: PAIGE RIGGSY CONSULTATION DATE OF : 59 REPORT #: [id number] PHYSICIAN: MASSIMO GARVIN MD PCP: SAADIA HERNANDEZ PA-C REPORT IS CONFIDENTIAL AND NOT TO BE RELEASED WITHOUT AUTHORIZATION
--- NOTE | ~2022-01-04 | OR ---
[facility] [address] [place], [place] [address] Draft DATE OF OPERATION: 01/05/2022 SURGEON: Massimo Garvin MD TIME: 10:30 a.m. PREOPERATIVE DIAGNOSES: 1. Critical illness, presumed recent hematemesis. 2. Right lower lobe infiltrate suggestive of aspiration pneumonia; intubated. POSTOPERATIVE DIAGNOSIS: No evidence of active bleeding of esophagus, stomach, or duodenum. PROCEDURE: Esophagogastroduodenoscopy. ANESTHESIA: Propofol infusion. INDICATION: This 66-year-old white woman is admitted to the hospital by Dr. Johnson and is now intubated with hypotension and right lower lobe infiltrate. She was thought to have coffee-ground emesis at an initial evaluation, as well as some hemoptysis. She did have anemia with hematocrit of only 23 and has since been transfused, her hematocrit is now 36. An orogastric tube is in place, which shows no evidence of blood. Request has been made by Dr. Johnson for consideration of upper endoscopy to assess for an upper gastrointestinal bleeding source. I have reviewed with the patient's niece who is her point of contact (who lives in [place] and is a nurse) as regard to the risks of upper endoscopy including but not limited to bleeding, infection, and perforation. She understands and wished to proceed. FINDINGS: There is no sign of blood or lesion to account for recent bleeding. She did have a hiatal hernia. There was mild mucosal trauma from previous orogastric tube. There was retained somewhat gelatinous darkish green type material within the stomach and at the antrum of the stomach. The pylorus was normal. The duodenum was normal. There was no blood or recent signs of blood in the duodenum. She did have a hiatal hernia, but no sign of collar ulcer. PATIENT NAME: PAIGE RIGGS OPERATIVE REPORT DATE OF : 59 REPORT #: [id number] PHYSICIAN: MASSIMO GARVIN MD PCP: SAADIA HERNANDEZ PA-C REPORT IS CONFIDENTIAL AND NOT TO BE RELEASED WITHOUT AUTHORIZATION [facility] [address] [place], [place] [address] Draft DESCRIPTION OF PROCEDURE: In the supine position in her bed on the ventilator in the intensive care unit, a mobile upper endoscopy unit was mobilized. Anesthesia was standby on the possibility of dislodgement of airway or need for other support. A bite block was placed. An Olympus video upper endoscope was passed in the hypopharynx and easily passed into the esophagus. Esophagus throughout its length appeared normal. No sign of portal hypertension (varices), ulceration or stricture. The scope was passed into the stomach. There was some gelatinous dark green adherent material in the upper stomach. The stomach largely was empty, however. Rugal folds were normal. In the region of the antrum, there was similar gelatinous material which with copious irrigation was broken up a bit. There was no sign of blood or blood clot. With somewhat blind gentle passage, the pylorus was traversed and the duodenum entered. There was no evidence of clotted blood or sign of bleeding in that area. Irrigation was undertaken upon withdrawal of scope from the 3rd portion of the duodenum and irrigation ultimately in the bulbar duodenum again showed no ulceration or neoplasm. Careful withdrawal through the pylorus showed no sign of stricture or ulceration. Attempts at clearance of the gelatinous material of the outlet of the stomach were not entirely successful, but it is less likely that there is a finding of neoplasm or ulceration or account for any sort of bleeding. Retroflexed view was undertaken, confirming a hiatal hernia. Scope was then carefully withdrawn through the GE junction showing no sign of Kelley-Christine tear. Further withdrawal showed no other findings of concern. The patient tolerated procedure well though, was on inotropic support currently. At conclusion, a nasogastric tube was passed to allow for further decompression of the stomach. A chest x-ray is pending. MD SHAHEEN Allen/CALOSL /[id number] cc: Kt Johnson MD Copies: KT JOHNSON MD ~ PATIENT NAME: PAIGE RIGGS OPERATIVE REPORT DATE OF : 59 REPORT #: [id number] PHYSICIAN: MASSIMO GARVIN MD PCP: SAADIA HERNANDEZ PA-C REPORT IS CONFIDENTIAL AND NOT TO BE RELEASED WITHOUT AUTHORIZATION
[~2022-01-04 15:16] MED LIST changes: +CYCLOBENZAPRINE5 MG PO
--- OUTSIDE RECORDS SUMMARY | 2022-01-04 15:18 | XMS ---
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 Events No recent Security Events currently on file CRITERIA MET - [facility] - 2 Visits in 30 Days [facility] ANTONY ROJAS Physician Back Tacker 06/20/2019-Current PHONE: [phone] YA LANDON Physician Back Tacker: Medical 08/08/2019-Current PHONE: [phone] SAADIA HERNANDEZ Physician Back Tacker 09/12/2019-Current PHONE: [phone] ROMIE LOERA MD Psychiatry \T\ Neurology: Psychiatry 04/12/2019-Current PHONE: [phone] Care Guidelines exist for the following facilities: [facility] ( 09/12/2019 ) Care History Medical/Surgical 06/21/2019 [facility] - DR DUARTE REVIEWED PATIENT MRI AND IMAGING REPORTS - DOES NOT FEEL PATIENT NEEDS TO BE SEEN BY AN ORTHOPEDIC SURGEON. - REFERRED PATIENT TO PAIN MANAGEMENT PHYSICIAN DR ROMIE LOERA. - PATIENT PCP OFFICE-[facility] CARE NOTIFIED OF THE DECISION 06/20/2019 [facility] - PATIENT IS CURRENTLY RECEIVING PAIN MANAGEMENT FROM DR ROMIE LOERA- PLEASE CONTACT DR LOERA IF ANY PAIN MEDICATIONS ARE ADMINISTERED TO PATIENT. - PATIENT HAS A REFERRAL TO ORTHOPEDIC SURGEON DR DUARTE ON 06/14/19. E.D. VISIT COUNT (12 MO.) 2 [facility]. TOTAL 2 NOTE: Visits indicate total known visits. ED/C VISIT TRACKING (12 MO.) 01/04/2022 15:17 [facility] [place] TYPE: Emergency COMPLAINT: - COUGHING UP BLOOD 01/03/2022 12:18 [facility] [place] TYPE: Emergency COMPLAINT: - DIZZY, SLURRED SPEECH, FALLING OVER INPATIENT VISIT TRACKING (12 MO.) [facility] DIAGNOSES: - Spondylolisthesis, lumbar region - Radiculopathy, lumbar region - Arthrodesis status - Spinal stenosis, lumbar region without neurogenic claudication [email or web address]
--- NOTE | 2022-01-04 21:03 | NUR ---
MIDLINE INSERTION NOTE WAS CALLED TO PLACE A MIDLINE FOR POOR IV ACCESS. THE LEFT ARM WAS EXAMINED. THE BASILIC AND BRACHIAL VEINS WERE ASSESSED AND THE BRACHIAL VEIN CHOSEN IT WAS LARGE ENOUGH FOR THE POWERGLIDE MIDLINE. THE BRACHIAL VEIN WAS ON TOP OF THE BRACHIAL ARTERY. WAS ABLE TO ACCESS THE BRACHIAL VEIN ON THE FIRST ATTEMPT. RED, NON PULSITILE BLOOD RETURNED EASILY. IV FLUSHED WELL. PT TOLERATED THE PROCEDURE WELL. THE BRACHIAL VEIN WAS APPROXIMATELY 0.5-1 CM BELOW THE SKIN SURFACE.
--- NOTE | 2022-01-04 21:15 | NUR ---
PATIENT ARRIVED VIA STRETCHER WITH SUPERVISOR LOCOMOTIVE. PATIENT IS DROAWSY BUT PROVIDES HER FIRST NAME AND ANSWERS YES/NO QUESTIONS. PATIENT IS TOLERATING 4L NC AT 98%, TITRATED TO 2L NC. LUNG SOUNDS ARE EXP WHEEZE IN RUL, COARSE IN MIKE, AND DIMINISHED IN THE BASES MARTA. ABD IS MODERATELY DISTENDED AND FIRM. PATIENT REPORTS HER LAST BM EARLIER TODAY AND STATES "I'M CONSTIPATED, I'M ALWAYS CONSTIPATED" AND REPORTS HER ABD IS NOT MORE DISTENDED THAN NORMAL. PATIENT DENIED NAUSEA AND PAIN. VS STABLE. MIDLINE FLUSHES EASILY, IV ABX AND FLUIDS STARTED PER ORDER. PATIENT DENIES NEED TO VOID. SKIN INTACT. RT IN ROOM TO SET UP BIPAP.
--- NOTE | 2022-01-04 23:00 | NUR ---
VBG DRAWN FROM MIDLINE WITHOUT ISSUE. PATIENT IS SLIGHTLY MORE RESTLESS. HAS BEEN TOLERATING BIPAP 16/4 35% Fi02. RR 18-22. BP HAS DROPPED SLGIHTLY TO 80/51 (59) AND 79/51 (62) ON A RECHECK. HR CONTINUES TO BE MID 80'S SR. PATIENT HAS NOT VOIDED. PATIENT IS ROLLING IN THE BED AND NOT FOLLOWING INSTRUCTIONS. ATTEMPTS TO CALM PATIENT ARE ONLY MODERATELY SUCESSFUL.
--- NOTE | 2022-01-04 23:20 | NUR ---
DISCUSSED VBG FINDINGS WITH MD. CONTINUE BIPAP WITHOUT CHANGES. REPORTS HYPOTENSION, LACK OF URINE OUTPUT AND INCREASED IRRITATION. ROSALES ORDERS, 1L ND BOLUS OVER 2 HOURS, AND ONE TIME DOSE OF ATIVAN (SEE EMAR). VERIFIED THESE ORDERS VIA REPEAT BACK.
--- NOTE | 2022-01-04 23:45 | NUR ---
ROSALES PLACED. ONE TIME DOSE ATIVAN ADMINISTERED PER ORDER. PATIENT STARTING TO CALM. CONTINUES TO WEAR BIPAP. IV BLOUS INFUSING PER ORDER. PATIENT SOUNDS THOUGH SHE IS NOT CLEARING ORAL SECREATIONS. BIPAP REMOVED FOR ORAL SUCTION. LARGE AMOUNT OF COFFEE GROUND EMESIS NOTED. PATIENT TURNED HIGH ON HER RIGHT SIDE. ORAL SUCTION DONE. OXY MASK PLACED AT 15L. PATIENT STARTING TO DESAT. MD AND RT CALLED TO ROOM. PATIENT CONTINUES TO DETERIORATE. DMITRY DOWNING CALLED.
--- NOTE | 2022-01-05 02:00 | NUR ---
PATIENT RECEIVING 1 OF 2 UNITS PRBC. ADMINISTRATION PER PROTOCOL. NO SIGN OF REACTION. TITRATION OF LEVOPHED TO 10 MCG/MIN PER . PROPOFOL TITRATED TO 30 MCG/KG/HR, RASS SCORE -1. PATIENT CALM BUT CHEWING ON ET TUBE AND RAISING EYE BROWS. OG TUBE REPLACED DUE TO DISLODGING AND DISTAL OCCLUSION DESPITE FLUSHING. PATIENT'S ABD CONTINUES TO BE MODERATELY DISTENDED BUT LESS FIRM THAN PRIOR ASSESSMENT. BOWEL SOUNDS ACTIVE. PATIENT TOLERATING VENT WELL, SETTINGS PER ORDER. PLAN OF CARE TO INFUSE PRBC, TITRATE PROPOFOL FOR RASS -2. MAINTAIN PATIENT ON VENT OVER NIGHT AND CHECK ABG AT 0300 AND LABS AFTER BLOOD ADMINISTRATION.
--- NOTE | 2022-01-05 02:48 | NUR ---
CODE NOTES CODE BLUE CALLED AT 2350; SUPERVISOR V[employer] METALIZING, FELICIA RN,. MEDSURG CHARGE, RT, AND DR. UMANA IN ROOM. PATIENT BEING BAGGED BY RT. DECISION MADE TO INTUBATE. RSI MEDS PER AND ADMINISTERED BY SUPERVISOR [employer] METAL[employer]ING, DOSE VERIFIED BY THIS RN. PATIENT INTUBATED AT 2359. 7.5 ET TUBE, 23 CM AT THE TEETH. COLOR CHANGE ETCO2 DETECTOR USED, GOLD. TUBE [place] AND VENT SET UP BY RT. OG TUBE PLACED BY SUPERVISOR VACUUM METALIZING. COPIOUS AMOUNTS OF COFFEE GROUND SECREATIONS OUT. IMAGING IN FOR CHEST X-RAY. AT BEDSIDE WITH RT FOR VENT SETTINGS. LABS DRAWN FROM MIDLINE. XRAY REVIEWED BY , ET TUBE PULLED BACK 3 CM BY RT; 20 AT THE TEETH. OG TUBE PULLED BACK SLIGHTLY AND SECURED. PATIENT HAS 600 MLS OUT OF OG. SECOND LITER BOLUS STARTED. PATIENT STARTED ON PROPOFOL AT 10 MCG/KG/MIN. BP ADEQUATE DURING THIS TIME. 0015 BP 81/36 (56) WITH HR 84. NOREPI STARTED AT 2 MCG/MIN PER . BP INCREASE; 92/57 (67) AT 0025. VERBAL ORDER FOR STAT CT RECIEVED. THIS RN, RT, AND TOOK PATIENT TO CT SUIT. PATIENT TOLERATED WELL. PATIENT RETURNED TO ROOM AT 0055. VS STABLE. VENT PER RT.
--- NOTE | 2022-01-05 03:42 | NUR ---
SECOND UNIT PRBC STARTED. PATIENT IS TOLERATING VENT PER RT. ABG SHOWS IMPROVEMENT. DICUSSION WITH RT TO CONTINUE WITH CURRENT SETTINGS. PATIENT RASS-2, PROPOFOL TITRATED TO 25 MCG/KG/MIN. ADEQUATE BP, TITRATED LEVOPHED AND CURRENTLY AT 6 MCG/MIN. WITH SYSTOLIC BP 101 AND MAP 73.
--- NOTE | 2022-01-05 05:30 | NUR ---
2 UNITS PRBC DONE. PATIENT VS STABLE. 3RD LINE STARTED BY DEZ MILLER. DISCUSSED ABG WITH AT 0400 AND BICARB ORDERED. PATIENT TOLERATING VENT.
--- NOTE | 2022-01-05 06:51 | NUR ---
PATIENT'S AXILLARY TEMP ELEVATED 101.3 F. MD AWARE. ORDERS FOR REPEAT BLOOD CULTURES RECEIVED.
--- NOTE | 2022-01-05 07:30 | NUR ---
REPORT RECIEVED AT BEDSIDE.
--- NOTE | 2022-01-05 07:40 | NUR ---
VBG AND BLOOD CULTURES DRAWN VIA MIDLINE.
--- NOTE | 2022-01-05 08:00 | NUR ---
ASSESSMENT DONE. LEVOPHED GTT INFUSING AT 24 MCG/MIN. REMAINS INTABATED WITH SIZE 7.5 ETT AT 20 CM AT THE TEETH, SETTINGS, TV-400, FIO2-100, PEEP-15, PIP-33, ETCO2-30. PROPOFOL GTT AT 20 MCG/KG/MIN, IV BICARB AT 100 ML/HR. RESTRAINTS ON BIALT. ROSALES CATH PATENT, OGT TO LIS. HOB ELEVATED TO 30 DEGREES.
[2022-01-05] MEDS ORDERED: CYCLOBENZAPRINE10 MG PO (08:25)
[2022-01-05] MEDS ORDERED: LAMOTRIGINE200 MG PO (08:25)
[2022-01-05] MEDS ORDERED: OMEPRAZOLE20 MG PO (08:26)
[2022-01-05] MEDS ORDERED: BUPRENORPHINE HC8 MG SL (08:26)
[2022-01-05] MEDS ORDERED: CITALOPRAM HBR40 MG PO (08:27)
[2022-01-05] MEDS ORDERED: METHOCARBAMOL500 MG PO (08:27)
[2022-01-05] MEDS ORDERED: DICLOFENAC POTA50 MG PO (08:27)
--- NOTE | 2022-01-05 09:10 | NUR ---
NS BOLUS 500 ML HUNG, TO BE GIVEN OVER HALF HOUR.
--- NOTE | 2022-01-05 09:40 | NUR ---
NS BOLUS INFUSED. BLADDER PRESSURE=9. DR. OJHNSON AND IRMA BISHOP.
--- NOTE | 2022-01-05 09:51 | NUR ---
MD GARVIN AND ALBERT RN SPOKE WITH STACI CRUZ ON THE PHONE. SHE GAVE BOTH STAFF VERBAL CONSENT TO PERFORM BEDSIDE EGD AND A CENTRAL LINE PLACEMENT. ANTHONY'S QUESTIONS ANSWERED BY .
--- NOTE | 2022-01-05 09:59 | NUR ---
ROSALES OUTPUT 7ML THIS HOUR.
--- NOTE | 2022-01-05 10:09 | NUR ---
ABG COMPLETED BY IMTIAZ IMLLER AND WALKED TO LAB.
--- NOTE | 2022-01-05 10:40 | NUR ---
EGD BEING DONE AT BEDSIDE BY DR. GARVIN AND SURGICAL TEAM. FIO2 INCREASED TO 100% AND PROPOFOL INCREASED TO 40MCG/KG/MIN ELISSA PROCEEDMARGY.
--- NOTE | 2022-01-05 11:10 | NUR ---
EGD COMPLETE. NO ACTIVE BLEEDING NOTED. PROPOFOL DECREASED TO 20 MCG/KG/MIN. BP REMAINS LOW. MD AWARE.
--- NOTE | 2022-01-05 11:22 | NUR ---
BLOOD PRESSURE REMAINS LOW. VASOPRESSIN HUNG AT 0.0O3 UNITS/MIN.
--- NOTE | 2022-01-05 12:00 | NUR ---
DR. JOHNSON HAS TALKED WITH FAMILY MEMBERS, PATIENT WILL GO TO COMFORT CARE STATUS.
--- NOTE | 2022-01-05 12:30 | NUR ---
COMFORT MEASURES IMPLEMENTED. REMAINS ON VENT AT THIS TIME. WILL TITRATE RR, FIO2 PEEP EVERY [address] JOHNSON[address] VASOPRESSIN TO OFF. LEVOPHED GTT WILL BE TITRATE TO OFF. PROPOFOL TO 50 MCG/KG FOR COMFORT. IVF TO OFF. EQUINE VET TO COMFORT CARE SETTING.
--- NOTE | 2022-01-05 12:55 | NUR ---
FENTANYL 100 MCG IV GIVEN FOR COMFORT.
--- NOTE | 2022-01-05 13:35 | NUR ---
PATIENT . DR. JOHNSON HERE, PRONOUNCE PATIENT .
--- NOTE | 2022-01-05 16:06 | NUR ---
NOTIFIED BY ANGELA NUR THAT PT IS . 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 [employer] IS [employer] FOR TODAY. CONTACT MADE, EXCHANGED PAPERWORK. ASSISTED WITH EXCHANGE OF PT TO VEHICLE WITH ASSISTANCE OF CCU STAFF.
--- NOTE | 2022-01-05 16:40 | NUR ---
BODY TO [employer].
== END 2022-01-05 16:30 | DRG 208 ==
LOC: ED 15:16 → CCU 20:00
PROVIDERS: ADMIT Internal Medicine; ATTEND Internal Medicine
PROC: 5A09357 Assistance with Respiratory Ventilation, Less than 24 Consecutive Hours, Continuous Positive Airway Pressure (ICD-10-PCS; 2022-01-04)
PROC: 05HA33Z Insertion of Infusion Device into Left Brachial Vein, Percutaneous Approach (ICD-10-PCS; 2022-01-04)
PROC: 5A1935Z Respiratory Ventilation, Less than 24 Consecutive Hours (ICD-10-PCS; principal; 2022-01-05)
PROC: 0BH17EZ Insertion of Endotracheal Airway into Trachea, Via Natural or Artificial Opening (ICD-10-PCS; 2022-01-05)
PROC: 0DJ08ZZ Inspection of Upper Intestinal Tract, Via Natural or Artificial Opening Endoscopic (ICD-10-PCS; 2022-01-05)
PROC: 30233N1 Transfusion of Nonautologous Red Blood Cells into Peripheral Vein, Percutaneous Approach (ICD-10-PCS; 2022-01-05)
PROC: 3E033XZ Introduction of Vasopressor into Peripheral Vein, Percutaneous Approach (ICD-10-PCS; 2022-01-05)
DX: J96.01 Acute respiratory failure with hypoxia (principal); J69.0 Pneumonitis due to inhalation of food and vomit; R65.11 Systemic inflammatory response syndrome (SIRS) of non-infectious origin with acute organ dysfunction; J84.9 Interstitial pulmonary disease, unspecified; E87.1 Hypo-osmolality and hyponatremia; N17.9 Acute kidney failure, unspecified; K92.2 Gastrointestinal hemorrhage, unspecified; R57.9 Shock, unspecified; E87.2 Acidosis; J96.02 Acute respiratory failure with hypercapnia; Z51.5 Encounter for palliative care; Z66 Do not resuscitate; Z20.822 Contact with and (suspected) exposure to COVID-19; E86.1 Hypovolemia; D64.9 Anemia, unspecified; F11.10 Opioid abuse, uncomplicated; F31.9 Bipolar disorder, unspecified; F15.10 Other stimulant abuse, uncomplicated; F19.10 Other psychoactive substance abuse, uncomplicated; F41.9 Anxiety disorder, unspecified; Z87.891 Personal history of nicotine dependence; Z98.890 Other specified postprocedural states; Z79.899 Other long term (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
CPT/HCPCS: 31500; 36415; 36569; 36600; 71045; 74176; 80048; 80053; 82728; 82803; 83605; 83735; 85025; 85379; 85610; 85730; 86850; 86900; 86901; 86922; 87070; 87205; 87502; 94002; 96360; 96361; 99285-25; A9270; C1751; C9113; C9803; J0295; J0330; J1956; J2060; J2405; J2543; J2704; J3010; J7030; P9016; U0003